=== PATIENT | female | born 1965 | race Two or more races ===

== ENCOUNTER → 2020-08-07 11:09 | Outpatient (BNVA) | payer MEDICAID, SELFPAY | PROVIDERS: PCP Family Medicine; Visit Provider Internal Medicine Pulmonary Disease | DX: D86.9 Sarcoidosis, unspecified (principal); J45.909 Unspecified asthma, uncomplicated | CPT/HCPCS: 99212 ==

== ENCOUNTER 2021-03-07 09:25 | Outpatient (REF) | payer OTHER, SELFPAY ==
[2021-03-07 10:50] LABS: MANUAL DIFF FLAG NO
[2021-03-07 10:54] LABS: Basophils Percent Auto 0.5 % (0-2); Eosinophils Absolute Auto 0.1 X10*3/uL (0.0-0.4); Eosinophils Percent Auto 1.2 % (0-4); Hematocrit 39.3 % (37-47); Imm Gran Abs Auto 0.01 X10*3/uL (0.00-0.03); Imm Gran Pct Auto 0.2 % (0.0-0.4); Lymphocytes Absolute Auto 2.1 X10*3/uL (1.2-4.9); Lymphocytes Percent Auto 36.2 % (20-40); Mean Corpuscular HGB Conc 33.1 g/dl (31.0-35.0); Mean Corpuscular Hemoglobin 27.8 pg (27.0-33.0); Mean Corpuscular Volume 84.2 fL (80-98); Mean Platelet Volume 10.4 fL (9.4-12.3); Monocytes Absolute Auto 0.3 X10*3/uL (0.1-1.2); Monocytes Percent Auto 5.6 % (2-11); Neutrophils Absolute Auto 3.3 X10*3/uL (2.0-8.3); Neutrophils Percent Auto 56.3 % (45-73); Platelet Count 262 X10*3/uL (160-400); Red Blood Count 4.67 X10*6/uL (4.20-5.50); Red Cell Distribution Width 12.2 % (11.0-16.0); White Blood Count 5.9 X10*3/uL (4.8-10.8)
[2021-03-07 11:36] LABS: Alanine Aminotransferase 7 U/L (0-31); Albumin Level 4.4 g/dL (3.5-5.0); Alkaline Phosphatase 104 U/L (39-117); Anion Gap 12 (12-20); Aspartate Amino Transferase 18 U/L (5-31); Bilirubin Total 0.6 mg/dL (0.0-1.0); Blood Urea Nitrogen 8 mg/dL (9-16); Carbon Dioxide 29 mmol/L (22-29); Chloride 103 mmol/L (96-108); Estimated Glomerular Filt Rate > 60; Glucose Random 94 mg/dL (60-115); Phosphorus 3.4 mg/dL (2.7-4.5); Potassium 4.7 mmol/L (3.3-5.1); Sodium 139 mmol/L (135-145); Total Protein 7.9 g/dL (6.5-8.0)
[2021-03-12 22:46] LABS: Angiotensin Converting Enzyme 47 U/L (9-67)
== END 2021-03-07 09:26 | disposition home or self-care (01) ==
LOC: HO.LAB 09:25
PROVIDERS: PCP Family Medicine; Visit Provider Internal Medicine Pulmonary Disease
DX: D86.9 Sarcoidosis, unspecified (principal); J45.909 Unspecified asthma, uncomplicated
CPT/HCPCS: 36415; 80053; 82164; 84100; 85025; 99212

== ENCOUNTER 2021-03-19 10:08 | Outpatient (REF) | payer OTHER, SELFPAY ==
--- NOTE | ~2021-03-19 | CT_ITS ---
EXAMINATION: CT CHEST WITHOUT CONTRAST CLINICAL INFORMATION: Sarcoidosis. COMPARISON: None TECHNIQUE: Multidetector volumetric CT imaging of the chest was done. Axial MIP volume rendering provided. Sagittal and coronal reformatted images were obtained. This CT examination was performed using dose optimization techniques as appropriate, variously including the following: *Automated exposure control *Adjustment of mA and/or kV according to patient size (this includes techniques or standardized protocols for targeted exams where dose is matched to indication/reason for exam; i.e. 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 LUNGS: The lungs are well expanded and clear of acute pneumonic process. There are 1 mm punctate calcified nodules left lower lobe axial image 103/10 and right middle lobe axial image 107/10. There are a few noncalcified nodules, a 3 mm nodule right middle lobe axial image 107/10, 4 mm nodule right middle lobe axial image 110/10, and a subpleural-based 2 mm nodule right middle lobe image 108/10. The subpleural nodule was faintly visualized on the previous study. These nodules show minimal increase by 1 mm compared to the 2019 exam. No additional nodules visualized. MEDIASTINUM: The central trachea and the bronchi are widely patent. The thyroid lobes are symmetrical and normal. Heart size and the great vessels are normal caliber. No pericardial effusion seen. No abnormal sized mediastinal or hilar lymph nodes. PLEURA: There is no pleural effusion. No pleural mass or thickening. AXILLA: No abnormal axillary lymph nodes. Bilateral augmented breasts are stable. UPPER ABDOMEN: Visualized liver, pancreas and bilateral adrenal glands are unremarkable. The gallbladder has been surgically removed. OSSEOUS STRUCTURES: There is mild spondylosis dorsal spine. No lytic or sclerotic process seen. CT/CT chest wo con IMPRESSION: Minimal 1 mm increase in size of 2 pulmonary nodules in the right middle lobe. There is a subpleural nodule seen better on the present exam. Recommend long-term followup of these nodules in 18-24 months. No abnormal mediastinal or axillary lymph nodes seen.
== END 2021-03-19 10:09 | disposition home or self-care (01) ==
LOC: HO.CT 10:08
PROVIDERS: PCP Family Medicine; Visit Provider Internal Medicine Pulmonary Disease
DX: D86.9 Sarcoidosis, unspecified (principal)
CPT/HCPCS: 71250

== ENCOUNTER → 2021-04-18 11:02 | Outpatient (BNVA) | payer OTHER, SELFPAY | PROVIDERS: PCP Family Medicine; Visit Provider Internal Medicine Pulmonary Disease | DX: D86.9 Sarcoidosis, unspecified (principal); J45.909 Unspecified asthma, uncomplicated | CPT/HCPCS: 99212 ==

== ENCOUNTER → 2021-09-08 14:30 | Outpatient (BNVA) | payer OTHER, SELFPAY | PROVIDERS: PCP Family Medicine; Visit Provider Nurse Practitioner Family | DX: M79.7 Fibromyalgia (principal); M79.641 Pain in right hand; M79.642 Pain in left hand; M25.561 Pain in right knee; M25.562 Pain in left knee | CPT/HCPCS: 99212 ==

== ENCOUNTER 2021-09-09 10:46 | Outpatient (REF) | payer OTHER, SELFPAY ==
--- NOTE | ~2021-09-09 | XR_ITS ---
EXAMINATION: XR KNEE, RIGHT CLINICAL INFORMATION: Pain. COMPARISON: Radiographs dated 08/31/2018. TECHNIQUE: AP, lateral, tunnel, and sunrise views of the right knee. FINDINGS: Bony alignment and mineralization are normal. The lateral and medial joint space compartments are well-maintained. There is mild narrowing of the lateral aspect of the patellofemoral compartment, with a small spur noted of the lateral articular surface of the patella. There is no fracture, dislocation or significant joint effusion. No foreign body seen. XR/XR knee LT 3V IMPRESSION: 1. No right knee fracture, dislocation or significant joint effusion is seen. 2. There is mild osteoarthritic change of the right patellofemoral compartment. EXAMINATION: XR KNEE, LEFT CLINICAL INFORMATION: Pain. COMPARISON: None TECHNIQUE: AP, lateral, tunnel, and sunrise views of the left knee. FINDINGS: Bony alignment and mineralization are normal. The lateral and medial joint space compartments are well-maintained. There is mild narrowing of the lateral aspect of the patellofemoral compartment. There is mild peripheral osteophyte formation of the patellofemoral compartment, most pronounced medially. There is no fracture, dislocation or significant joint effusion. No foreign body is seen. IMPRESSION: 1. No left knee fracture, dislocation or significant joint effusion is seen. 2. There is mild osteoarthritic change of the left patellofemoral compartment.
--- NOTE | ~2021-09-09 | XR_ITS ---
EXAMINATION: XR HAND, RIGHT CLINICAL INFORMATION: Pain. COMPARISON: Radiographs dated 02/21/2019. TECHNIQUE: PA, lateral, and oblique views of the right hand. FINDINGS: Bony mineralization is normal. There is an ulnar minus variance. There is mild peripheral osteophyte formation of the interphalangeal joint of the thumb. No fracture or dislocation is seen. The proximal and distal carpal rows are intact. There is minimal osteoarthritic change of the first carpometacarpal joint. There is no focal bony erosion. No soft tissue gas, swelling or foreign body is seen. XR/XR hand LT min 3V IMPRESSION: 1. There is mild osteoarthritic change of the interphalangeal joint of the right thumb. 2. No acute fracture or dislocation is seen. 3. There is an ulnar minus variance. EXAMINATION: XR HAND, LEFT CLINICAL INFORMATION: Pain. COMPARISON: Radiographs dated 02/21/2019. TECHNIQUE: PA, lateral, and oblique views of the left hand. FINDINGS: Bony mineralization is normal. There is an ulnar minus variance. There is mild peripheral osteophyte formation of the interphalangeal joint of the thumb. No fracture or dislocation is seen. The proximal and distal carpal rows appear intact. There is minimal osteoarthritic change of the first carpometacarpal joint. No focal bone erosion is seen. No soft tissue gas, swelling or foreign body is seen. IMPRESSION: 1. There is mild osteoarthritic change of the interphalangeal joint of the left thumb. 2. No acute fracture or dislocation is seen. 3. There is an ulnar minus variance.
--- NOTE | ~2021-09-09 | XR_ITS ---
EXAMINATION: XR HAND, RIGHT CLINICAL INFORMATION: Pain. COMPARISON: Radiographs dated 02/21/2019. TECHNIQUE: PA, lateral, and oblique views of the right hand. FINDINGS: Bony mineralization is normal. There is an ulnar minus variance. There is mild peripheral osteophyte formation of the interphalangeal joint of the thumb. No fracture or dislocation is seen. The proximal and distal carpal rows are intact. There is minimal osteoarthritic change of the first carpometacarpal joint. There is no focal bony erosion. No soft tissue gas, swelling or foreign body is seen. XR/XR hand RT min 3V IMPRESSION: 1. There is mild osteoarthritic change of the interphalangeal joint of the right thumb. 2. No acute fracture or dislocation is seen. 3. There is an ulnar minus variance. EXAMINATION: XR HAND, LEFT CLINICAL INFORMATION: Pain. COMPARISON: Radiographs dated 02/21/2019. TECHNIQUE: PA, lateral, and oblique views of the left hand. FINDINGS: Bony mineralization is normal. There is an ulnar minus variance. There is mild peripheral osteophyte formation of the interphalangeal joint of the thumb. No fracture or dislocation is seen. The proximal and distal carpal rows appear intact. There is minimal osteoarthritic change of the first carpometacarpal joint. No focal bone erosion is seen. No soft tissue gas, swelling or foreign body is seen. IMPRESSION: 1. There is mild osteoarthritic change of the interphalangeal joint of the left thumb. 2. No acute fracture or dislocation is seen. 3. There is an ulnar minus variance.
--- NOTE | ~2021-09-09 | XR_ITS ---
EXAMINATION: XR KNEE, RIGHT CLINICAL INFORMATION: Pain. COMPARISON: Radiographs dated 08/31/2018. TECHNIQUE: AP, lateral, tunnel, and sunrise views of the right knee. FINDINGS: Bony alignment and mineralization are normal. The lateral and medial joint space compartments are well-maintained. There is mild narrowing of the lateral aspect of the patellofemoral compartment, with a small spur noted of the lateral articular surface of the patella. There is no fracture, dislocation or significant joint effusion. No foreign body seen. XR/XR knee RT 3V IMPRESSION: 1. No right knee fracture, dislocation or significant joint effusion is seen. 2. There is mild osteoarthritic change of the right patellofemoral compartment. EXAMINATION: XR KNEE, LEFT CLINICAL INFORMATION: Pain. COMPARISON: None TECHNIQUE: AP, lateral, tunnel, and sunrise views of the left knee. FINDINGS: Bony alignment and mineralization are normal. The lateral and medial joint space compartments are well-maintained. There is mild narrowing of the lateral aspect of the patellofemoral compartment. There is mild peripheral osteophyte formation of the patellofemoral compartment, most pronounced medially. There is no fracture, dislocation or significant joint effusion. No foreign body is seen. IMPRESSION: 1. No left knee fracture, dislocation or significant joint effusion is seen. 2. There is mild osteoarthritic change of the left patellofemoral compartment.
[2021-09-09 12:55] LABS: Alanine Aminotransferase 17 U/L (0-31); Albumin Level 3.9 g/dL (3.5-5.0); Alkaline Phosphatase 92 U/L (39-117); Anion Gap 12 (12-20); Aspartate Amino Transferase 23 U/L (5-31); Bilirubin Total 0.6 mg/dL (0.0-1.0); Blood Urea Nitrogen 8 mg/dL (9-16); Calcium 9.5 mg/dL (8.4-10.2); Carbon Dioxide 28 mmol/L (22-29); Chloride 105 mmol/L (96-108); Estimated Glomerular Filt Rate > 60; Glucose Random 96 mg/dL (60-115); Potassium 4.3 mmol/L (3.3-5.1); Sodium 141 mmol/L (135-145); Total Protein 7.3 g/dL (6.5-8.0)
== END 2021-09-09 10:47 | disposition home or self-care (01) ==
LOC: HO.XRAY 10:46
PROVIDERS: PCP Family Medicine; Visit Provider Nurse Practitioner Family
DX: M79.7 Fibromyalgia (principal); M25.562 Pain in left knee; M25.561 Pain in right knee; M79.642 Pain in left hand; M79.641 Pain in right hand
CPT/HCPCS: 36415; 73130; 73562; 80053

== ENCOUNTER → 2022-04-08 09:54 | Outpatient (BNVA) | payer OTHER, SELFPAY | PROVIDERS: PCP Family Medicine; Visit Provider Nurse Practitioner Family | DX: M79.7 Fibromyalgia (principal); M79.641 Pain in right hand; M79.642 Pain in left hand; M25.561 Pain in right knee; M25.562 Pain in left knee | CPT/HCPCS: 99212 ==

== ENCOUNTER 2022-04-10 14:52 | Outpatient (REF) | payer OTHER, SELFPAY ==
[2022-04-10 15:05] LABS: MANUAL DIFF FLAG NO
[2022-04-10 15:14] LABS: Basophils Percent Auto 0.4 % (0-2); Eosinophils Absolute Auto 0.1 X10*3/uL (0.0-0.4); Eosinophils Percent Auto 0.6 % (0-4); Hematocrit 38.1 % (37.0-47.0); Hemoglobin 12.9 g/dl (12.0-16.0); Imm Gran Abs Auto 0.02 X10*3/uL (0.00-0.03); Imm Gran Pct Auto 0.2 % (0.0-0.4); Lymphocytes Absolute Auto 2.3 X10*3/uL (1.2-4.9); Lymphocytes Percent Auto 27.6 % (20-40); Mean Corpuscular HGB Conc 33.9 g/dl (31.0-35.0); Mean Corpuscular Hemoglobin 28.9 pg (27.0-33.0); Mean Corpuscular Volume 85.4 fL (80.0-98.0); Mean Platelet Volume 9.8 fL (9.4-12.3); Monocytes Absolute Auto 0.5 X10*3/uL (0.1-1.2); Monocytes Percent Auto 5.9 % (2-11); Neutrophils Absolute Auto 5.3 x10*3/uL (2.0-8.3); Neutrophils Percent Auto 65.3 % (45-73); Platelet Count 258 X10*3/uL (160-400); Red Blood Count 4.46 X10*6/uL (4.20-5.50); Red Cell Distribution Width 12.7 % (11.0-16.0); White Blood Count 8.1 X10*3/uL (4.8-10.8)
[2022-04-10 15:54] LABS: Erythrocyte Sedimentation Rate 34 MM/HR (0-20)
[2022-04-10 15:56] LABS: Alanine Aminotransferase 11 U/L (0-31); Aspartate Amino Transferase 17 U/L (5-31); C Reactive Protein 0.37 mg/dL (< or = 0.50); Estimated Glomerular Filt Rate > 60
== END 2022-04-10 14:53 | disposition home or self-care (01) ==
LOC: HO.LAB 14:52
PROVIDERS: PCP Family Medicine; Visit Provider Nurse Practitioner Family
DX: M25.50 Pain in unspecified joint (principal)
CPT/HCPCS: 36415; 82565; 84450; 84460; 85025; 85652; 86140

== ENCOUNTER → 2022-04-16 09:00 | Outpatient (BNVA) | payer OTHER, SELFPAY | PROVIDERS: PCP Family Medicine; Visit Provider Internal Medicine Rheumatology | DX: M65.9 Synovitis and tenosynovitis, unspecified (principal) | CPT/HCPCS: 20550 ==

== ENCOUNTER 2022-05-29 14:02 | Outpatient (REF) | payer OTHER, SELFPAY ==
[2022-05-29 14:52] LABS: C Reactive Protein 0.34 mg/dL (< or = 0.50)
[2022-05-29 15:15] LABS: Erythrocyte Sedimentation Rate 32 MM/HR (0-20)
== END 2022-05-29 14:03 | disposition home or self-care (01) ==
LOC: HO.LAB 14:02
PROVIDERS: PCP Family Medicine; Visit Provider Nurse Practitioner Family
DX: M25.50 Pain in unspecified joint (principal); M79.7 Fibromyalgia; M79.641 Pain in right hand; M79.642 Pain in left hand; M25.561 Pain in right knee; M25.562 Pain in left knee
CPT/HCPCS: 36415; 85652; 86140; 99212

== ENCOUNTER → 2022-08-03 09:13 | Outpatient (BNVA) | payer OTHER, SELFPAY | PROVIDERS: PCP Family Medicine; Visit Provider Internal Medicine Rheumatology | DX: M65.9 Synovitis and tenosynovitis, unspecified (principal); M19.041 Primary osteoarthritis, right hand; M19.042 Primary osteoarthritis, left hand; M79.7 Fibromyalgia | CPT/HCPCS: 20550; 99212 ==

== ENCOUNTER → 2022-10-08 09:48 | Outpatient (BNVA) | payer OTHER, SELFPAY | PROVIDERS: PCP Family Medicine; Visit Provider Nurse Practitioner Family | DX: M79.7 Fibromyalgia (principal); M17.0 Bilateral primary osteoarthritis of knee; M19.041 Primary osteoarthritis, right hand; M19.042 Primary osteoarthritis, left hand; M65.9 Synovitis and tenosynovitis, unspecified; F32.A Depression, unspecified | CPT/HCPCS: 99212 ==

== ENCOUNTER 2022-10-08 11:05 | Outpatient (REF) | payer OTHER, SELFPAY ==
[2022-10-08 15:08] LABS: Alanine Aminotransferase 17 U/L (0-31); Albumin Level 4.1 g/dL (3.5-5.0); Alkaline Phosphatase 94 U/L (39-117); Anion Gap 13 (12-20); Aspartate Amino Transferase 20 U/L (5-31); Bilirubin Total 0.7 mg/dL (0.0-1.0); Blood Urea Nitrogen 10 mg/dL (9-16); Calcium 9.3 mg/dL (8.4-10.2); Carbon Dioxide 29 mmol/L (22-29); Chloride 104 mmol/L (96-108); Estimated Glomerular Filt Rate > 60; Glucose Random 89 mg/dL (60-115); Potassium 4.5 mmol/L (3.3-5.1); Sodium 141 mmol/L (135-145); Total Protein 7.4 g/dL (6.5-8.0)
== END 2022-10-08 11:06 | disposition home or self-care (01) ==
LOC: HO.10HDL 11:05
PROVIDERS: Visit Provider Nurse Practitioner Family
DX: M19.041 Primary osteoarthritis, right hand (principal); M19.042 Primary osteoarthritis, left hand; M17.0 Bilateral primary osteoarthritis of knee; M79.7 Fibromyalgia; M65.9 Synovitis and tenosynovitis, unspecified; Z79.899 Other long term (current) drug therapy
CPT/HCPCS: 36415; 80053

== ENCOUNTER 2022-11-04 11:50 | Outpatient (REF) | payer OTHER, SELFPAY ==
--- NOTE | ~2022-11-04 | XR_ITS ---
EXAMINATION: XR KNEE, RIGHT CLINICAL INFORMATION: Bilateral primary osteoarthritis of knee. COMPARISON: None available. TECHNIQUE: Four views of the right knee. FINDINGS: Bones and soft tissues are normal. No fracture or joint effusion. Alignment is anatomic. Joint spaces are well maintained. No abnormal soft tissue calcification. There is mild right lateral patellar spurring. The soft tissues are normal. XR/XR knee RT 3V IMPRESSION: Mild right lateral patellar spurring. No visible acute fracture, dislocation or subluxation seen.
== END 2022-11-04 11:51 | disposition home or self-care (01) ==
LOC: HO.XRAY 11:50
PROVIDERS: PCP Family Medicine; Visit Provider Internal Medicine Rheumatology
DX: M17.0 Bilateral primary osteoarthritis of knee (principal)
CPT/HCPCS: 73562

== ENCOUNTER → 2022-11-10 13:54 | Outpatient (BNVA) | payer OTHER, SELFPAY | PROVIDERS: PCP Family Medicine; Visit Provider Orthopaedic Surgery | DX: M79.641 Pain in right hand (principal); M79.642 Pain in left hand | CPT/HCPCS: 99202 ==

== ENCOUNTER → 2022-11-25 10:49 | Outpatient (BNVA) | payer OTHER, SELFPAY | PROVIDERS: PCP Family Medicine; Visit Provider Nurse Practitioner Family | DX: M17.11 Unilateral primary osteoarthritis, right knee (principal) | CPT/HCPCS: 20610 ==

== ENCOUNTER → 2023-02-11 07:57 | Outpatient (BNVA) | payer OTHER, SELFPAY | PROVIDERS: PCP Family Medicine; Visit Provider Internal Medicine Rheumatology | DX: M17.0 Bilateral primary osteoarthritis of knee (principal); M22.2X1 Patellofemoral disorders, right knee; M22.2X2 Patellofemoral disorders, left knee; M19.042 Primary osteoarthritis, left hand; M19.041 Primary osteoarthritis, right hand; M79.7 Fibromyalgia | CPT/HCPCS: 20610; 99212 ==

== ENCOUNTER 2023-04-01 13:51 | Outpatient (AMB) | payer OTHER, SELFPAY ==
--- NOTE | 2023-04-01 13:55 | MHC.OFFVIS ---
Intake Vital Signs 04/01/23 13:56 Height 5 ft 3 in Weight 163 lb 2.273 oz BMI 28.9 BP 136/80 Blood Pressure Location Lt brachial Position Sitting Pulse 65 Pulse Source Pulse Oximeter Pulse Oximetry (%) 99 Oxygen Delivery Method Room Air Intake Visit Reasons: sarcoidosis Intake Note: Pt reports shortness of breath, light headed, dizzy, and fatigue and went to the [facility] ED. Recently had an EKG and was diagnosed with left ventricular hypertrophy. Allergies fluconazole [From Diflucan] Allergy (Severe, Verified 04/01/23 14:01) Hives acetaminophen [From VICODIN] Allergy (Unknown, Verified 04/01/23 14:01) HIVES codeine Allergy (Unknown, Verified 04/01/23 14:01) Unknown erythromycin base [ERYTHROMYCIN BASE] Allergy (Unknown, Verified 04/01/23 14:01) HIVES hydrocodone [From VICODIN] Allergy (Unknown, Verified 04/01/23 14:01) HIVES loratadine [From CLARITIN] Allergy (Unknown, Verified 04/01/23 14:01) HTN meperidine [From DEMEROL] Allergy (Unknown, Verified 04/01/23 14:01) UNKNOWN morphine [MORPHINE] Allergy (Unknown, Verified 04/01/23 14:01) UNKNOWN nalbuphine [From NUBAIN] Allergy (Unknown, Verified 04/01/23 14:01) HIVES oxycodone [OXYCODONE] Allergy (Unknown, Verified 04/01/23 14:01) HIVES penicillin V Allergy (Unknown, Verified 04/01/23 14:01) unk Penicillins [PCN] Allergy (Unknown, Verified 04/01/23 14:01) HIVES tramadol [TRAMADOL] Allergy (Unknown, Verified 04/01/23 14:01) NAUSEA & VOMITING vancomycin [VANCOMYCIN] Allergy (Unknown, Verified 04/01/23 14:01) BLISTERS HPI sarcoidosis HPI Details 57-year-old lady with underlying history of sarcoidosis diagnosed based on CT [id number]. Patient has been previously seen at [facility] pulmonary service.? Patient was lost to follow-up for the last 2 years and now comes back to restrictive care after being evaluated at emergency room for dyspnea and being told she has left ventricular hypertrophy. Patient complains of orthopnea, lower extremity edema, and dyspnea on exertion. She denies cough, wheezing or sputum production. 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 Current occupational exposures/hazards: No Sexual orientation: Straight/Heterosexual Gender identity: Female Review of Systems Const Denies daytime sleepiness, Denies excessive sweating, Denies fatigue, Denies fever(s), Denies lethargy, Denies malaise, Denies night sweats, Denies snoring and Denies weight loss Eyes Denies blurry vision and Denies itchy eyes ENT Denies nasal congestion, Denies post nasal drip, Denies sinus pain, Denies sinus pressure and Denies other ( Thrush) Card Denies chest pain, Denies pedal edema, Denies dyspnea, Denies orthopnea and Denies paroxysmal nocturnal dyspnea Resp Denies cough, Denies hemoptysis, Denies excessive phlegm production, Denies dyspnea, Denies snoring and Denies wheezing GI Denies abdominal pain and Denies heartburn Musc Denies myalgias, Denies arthralgias and Denies joint swelling Skin/Breast Denies rash Neuro Denies memory loss and Denies seizure-like activity Psych Denies abnormal sleep pattern, Denies anxiety and Denies memory loss Endo Denies excessive sweating, Denies fatigue and Denies heat intolerance Maximiliano/Lymph Denies easy bruising Aller/Immun Denies itchy eyes, Denies seasonal rhinorrhea and Denies wheezing Physical Exam Vital Signs: Last Vital Signs Pulse 65 04/01/23 13:56 BP 136/80 04/01/23 13:56 Pulse Ox 99 04/01/23 13:56 Oxygen Delivery Method Room Air 04/01/23 13:56 BMI result Body Mass Index 28.9 Const General: no acute distress and alert Nutritional Appearance: not obese Orientation/consciousness: Other orientation findings ( oriented) HEENT Head: Yes atraumatic Eyes General: appearance normal, both eyes and all related structures Sclerae: sclerae normal EOM: EOMs intact bilaterally Neck Neck: Yes supple Lymphatic: no lymphadenopathy noted Resp Effort & Inspection: normal respiratory effort and no use of accessory muscles Auscultation: clear to auscultation bilaterally Cardio Rate: regular rate Rhythm: regular rhythm Heart sounds: no gallops, no murmurs and no rubs Skin General skin exam: other ( warm) Extrem General: No clubbing, No cyanosis and No edema Assessment & Plan Assessment & Plan (1) Sarcoidosis: Code(s): D86.9 - Sarcoidosis, unspecified Plan: Will obtain CT chest for further evaluation. Underlying history of pulmonary nodules. (2) Reactive airway disease: Code(s): J45.909 - Unspecified asthma, uncomplicated Plan: Will obtain full PFT for further evaluation. (3) Dyspnea on exertion: Code(s): R06.09 - Other forms of dyspnea Plan: Now with significant orthopnea and dyspnea on exertion. Will obtain 2D echocardiogram for further evaluation. Orders: Orders CA echo transthoracic complete Today R06.09 - Other forms of dyspnea CT chest wo IV con Today D86.9 - Sarcoidosis, unspecified PFT pulmonary function test Today R06.09 - Other forms of dyspnea Coding Level of Care Code Est Pt Level 4 (23941) Diagnoses Sarcoidosis D86.9 Reactive airway disease J45.909 Dyspnea on exertion R06.09
[2023-04-01 13:56] VITALS: BP 136/80; PULSE 65; O2SAT 99; BMI 28.9
== END 2023-04-01 14:24 | disposition home or self-care (01) ==
PROVIDERS: PCP Family Medicine; Visit Provider Internal Medicine Pulmonary Disease
DX: D86.9 Sarcoidosis, unspecified (principal); J45.909 Unspecified asthma, uncomplicated; R06.09 Other forms of dyspnea
CPT/HCPCS: 99214

== ENCOUNTER → 2023-04-01 13:51 | Outpatient (BNVA) | payer OTHER, SELFPAY | PROVIDERS: PCP Family Medicine; Visit Provider Internal Medicine Pulmonary Disease | DX: D86.9 Sarcoidosis, unspecified (principal); J45.909 Unspecified asthma, uncomplicated; R06.09 Other forms of dyspnea | CPT/HCPCS: 99212 ==

== ENCOUNTER 2023-04-13 11:03 | Outpatient (REF) | payer OTHER, SELFPAY ==
--- NOTE | ~2023-04-13 | CT_ITS ---
EXAMINATION: CT CHEST WITHOUT CONTRAST CLINICAL INFORMATION: Sarcoidosis COMPARISON: 03/19/2021 TECHNIQUE: Multidetector volumetric CT imaging of the chest was done. Axial MIP volume rendering provided. Sagittal and coronal reformatted images were obtained. This CT examination was performed using dose optimization techniques as appropriate, variously including the following: *Automated exposure control *Adjustment of mA and/or kV according to patient size (this includes techniques or standardized protocols for targeted exams where dose is matched to indication/reason for exam; i.e. 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 Apical pleural thickening. 4 and 2 mm right middle lobe nodules, 12:33. 2 mm subpleural, 12:32 MEDIASTINUM: Unremarkable thyroid. Nonspecific mediastinal lymph nodes. No pathologic lymphadenopathy. Nonenlarged heart. Trace pericardial thickening/fluid. Nonaneurysmal aorta with trace atherosclerotic calcifications. Nonenlarged pulmonary arteries. CORONARY ARTERY CALCIFICATION: None visualized on this study. PLEURA: There is no pleural effusion. No pleural mass or thickening. AXILLA: No lymphadenopathy. UPPER ABDOMEN: Cholecystectomy clips. No upper abdominal pathology recognized. OSSEOUS AND SOFT TISSUE STRUCTURES: Bilateral implants. CT/CT chest wo IV con IMPRESSION: No change right middle lobe pulmonary nodules, none larger than 4 mm. No pathologic lymphadenopathy. Fleischner guidelines were followed.
== END 2023-04-13 11:04 | disposition home or self-care (01) ==
LOC: HO.CT 11:03
PROVIDERS: PCP Family Medicine; Visit Provider Internal Medicine Pulmonary Disease
DX: D86.9 Sarcoidosis, unspecified (principal)
CPT/HCPCS: 71250

== ENCOUNTER → 2023-06-07 10:59 | Outpatient (REF) | payer OTHER, SELFPAY ==
--- NOTE | 2023-06-07 11:01 | CA_ITS ---
Transthoracic Echocardiogram Patient (Last, First, Middle): Nicolette Soto, Gender: Female Date of : 1965 Age: 58 Procedure Date: 06/07/2023 Procedure Type: Transthoracic Echocardiogram Location: OP Height: 160.02 cm Weight: 71.22 kg BSA: 1.74 m2 Heart Rate: bpm BP: 135 / 77 mmHg Service Or Work Dispatcher Chief: Referring MD: Naeem Butts MD Lead Designer: Javier Casey MD Symptoms: R06.09 - Other forms of dyspnea Study Quality: Adequate ECG Rhythm: Sinus Conclusions: - Essentially normal study Findings Left Ventricle Normal left ventricular size, thickness, and systolic function. The visually estimated ejection fraction is between 60-65%. Spectral Doppler is indicative of a normal filling pattern. Right Ventricle Normal right ventricular cavity size and systolic function. Atria Both atria are normal in size. There is no evidence of interatrial shunt. Aortic Valve Normal aortic valve structure and function. There is no aortic valve stenosis. There is no aortic valve regurgitation. Mitral Valve Normal mitral valve structure and function. There is trace mitral valve regurgitation. There is no mitral valve stenosis. Pulmonic Valve The pulmonic valve is likely normal. Tricuspid Valve Normal tricuspid valve structure. There is trace tricuspid valve regurgitation. The right ventricular systolic pressure is normal. The right ventricular systolic pressure is 19 mmHg. Normal right atrial pressure. There is no evidence of pulmonary hypertension. Great Vessels All visible segments of the aorta are normal in size. The pulmonary artery was not well visualized. Venous The inferior vena cava is normal in size and collapses greater than 50% with inspiration. Pericardium/Pleural There is no evidence of pericardial effusion. Measurements 2D Linear Measurements IVSd: 1.00 0.6-0.9/0.6-1.0 cm LVIDd: 3.70 3.9-5.3/4.2-5.9 cm LVIDd Index: 2.13 2.4-3.2/2.2-3.1 cm/m2 LVIDs: 2.40 2.0-3.6 cm LVPWd: 1.00 0.7-1.1 cm Ao Root: 2.60 2.1-3.5 cm LA Diam: 3.00 2.7-3.8/3.0-4.0 cm LAIDs Index: 1.72 1.5-2.3 cm/m2 LV Mass: 139.92 67-162/88-224 g LV Mass Index: 80.41 43-95/49-115 g/m2 LVOT Diam: 2.00 3.0+(-)1.3 cm Mitral Valve MV Pk E: 0.80 MV PK A: 0.78 MV Decel Time: 186.00 E/A: 1.00 E'Lateral: 9.36 E'Medial: 7.29 E/E' Med: 11.00 E/E' Lat: 8.60 PHT: 55.00 MVA PHT: 4.00 Decel [place]: 4.30 Aortic Valve AoV Pk Jakob: 1.28 AoV Mn Jakob: 0.98 AoV VTI: 0.29 AoV Pk Grad: 7.00 Aov Mn Grad: 4.00 LILA Cont.VTI: 3.03 LVOT LVOT Pk Jakob: 1.24 LVOT Mn Jakob: 0.82 LVOT VTI: 0.28 LVOT Pk Grad: 6.00 LVOT Mn Grad: 3.00 LVOT Diam: 2.00 LVOT Area: 3.14 Diastolic Function MV Pk E: 0.80 MV Pk A: 0.78 E/A: 1.00 E'Medial: 7.29 E/E' Med: 11.00 E' Laterial: 9.36 E/E' Lat: 8.60 Right Ventricle TAPSE (mm): 24.00 TVS' Jakob: 13.00 Tricuspid Valve TR Pk Jakob: 2.01 TR Pk Grad: 16.00 RA Press: 3.00 RVSP: 19.00 Great Vessels Aorta Ao Root-2D: 2.60 2.0-3.7 cm Ao Asc: 2.80 2.1-3.4 cm Pulmonary Valve PV Pk Jakob: 1.00 Peak PV Grad: 4.00 Updated in Other Vendor System with Status of Final Javier Casey MD electronically signed on 06/08/2023 11:40:42 AM with status of Final
== END ==
LOC: HO.CARD 10:59
PROVIDERS: PCP Family Medicine; Visit Provider Internal Medicine Pulmonary Disease
DX: R06.09 Other forms of dyspnea (principal)
CPT/HCPCS: 93306

== ENCOUNTER → 2023-06-07 11:01 | Outpatient (BNV) | payer OTHER, SELFPAY | PROVIDERS: PCP Family Medicine; Visit Provider Internal Medicine Cardiovascular Disease | DX: R06.09 Other forms of dyspnea (principal) | CPT/HCPCS: 93306 ==

== ENCOUNTER 2023-06-08 13:44 | Outpatient (REF) | payer OTHER, SELFPAY ==
--- NOTE | 2023-06-08 14:31 | PFT_ITS ---
INDICATION: Dyspnea. SPIROMETRY: The FEV1 to FVC of 84% with an FEV1 of 2.44 L, which is 103% predicted. FVC of 2.89 L, which is 101% predicted. No significant response to bronchodilators noted. Maximum voluntary ventilation 55% predicted. LUNG VOLUMES: Total lung capacity 80% predicted. DIFFUSION CAPACITY: DLCO of 72%. COMPARISONS: None. INTERPRETATION: No obstructive, nor restrictive ventilatory defects appreciated. No significant response to bronchodilator is noted. The patient does have a moderate decrease in maximum voluntary ventilation, which could be secondary to deconditioning, although cannot rule out neuromuscular conditions. The patient has a low-normal total lung capacity. Therefore, cannot rule out occult interstitial lung conditions or neuromuscular diseases. In addition to that, she has a mild diffusion impairment. Clinical correlation warranted. Jonatan Chu MD MR/MODL / [id number]
== END 2023-06-08 13:45 | disposition home or self-care (01) ==
LOC: HO.RESP 13:44
PROVIDERS: PCP Family Medicine; Visit Provider Internal Medicine Pulmonary Disease
DX: R06.09 Other forms of dyspnea (principal)
CPT/HCPCS: 94010; 94727; 94729

== ENCOUNTER → 2023-06-08 14:31 | Outpatient (BNV) | payer OTHER, SELFPAY | PROVIDERS: PCP Family Medicine; Visit Provider Hospitalist | DX: R06.09 Other forms of dyspnea (principal) | CPT/HCPCS: 94060; 94727; 94729 ==

== ENCOUNTER 2023-06-09 10:18 | Outpatient (AMB) | payer OTHER, SELFPAY ==
[2023-06-09 10:20] VITALS: BP 117/72; PULSE 79; O2SAT 99; BMI 29.1
--- NOTE | 2023-06-09 10:20 | A.OFFVIS_ITS ---
Intake Vital Signs 06/09/23 10:20 Height 5 ft 3 in Weight 164 lb 3.91 oz BMI 29.1 BP 117/72 Blood Pressure Location Lt brachial Position Sitting Pulse 79 Pulse Source Doppler Pulse Oximetry (%) 99 Oxygen Delivery Method Room Air Intake Visit Reasons: sarcoidosis Allergies fluconazole [From Diflucan] Allergy (Severe, Verified 06/09/23 10:25) Hives acetaminophen [From VICODIN] Allergy (Unknown, Verified 06/09/23 10:25) HIVES codeine Allergy (Unknown, Verified 06/09/23 10:25) Unknown erythromycin base [ERYTHROMYCIN BASE] Allergy (Unknown, Verified 06/09/23 10:25) HIVES hydrocodone [From VICODIN] Allergy (Unknown, Verified 06/09/23 10:25) HIVES loratadine [From CLARITIN] Allergy (Unknown, Verified 06/09/23 10:25) HTN meperidine [From DEMEROL] Allergy (Unknown, Verified 06/09/23 10:25) UNKNOWN morphine [MORPHINE] Allergy (Unknown, Verified 06/09/23 10:25) UNKNOWN nalbuphine [From NUBAIN] Allergy (Unknown, Verified 06/09/23 10:25) HIVES oxycodone [OXYCODONE] Allergy (Unknown, Verified 06/09/23 10:25) HIVES penicillin V Allergy (Unknown, Verified 06/09/23 10:25) unk Penicillins [PCN] Allergy (Unknown, Verified 06/09/23 10:25) HIVES tramadol [TRAMADOL] Allergy (Unknown, Verified 06/09/23 10:25) NAUSEA & VOMITING vancomycin [VANCOMYCIN] Allergy (Unknown, Verified 06/09/23 10:25) BLISTERS HPI sarcoidosis HPI Details 58-year-old lady with underlying history of sarcoidosis diagnosed based on CT [id number]. Patient has been previously seen at [facility] pulmonary service.? Patient was lost to follow-up for the last 2 years and recently came back to reestablish care. She has completed her 2D echocardiogram, CT chest, and pulmonary function test which all were essentially normal. she denies recent acute exacerbations. 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 Current occupational exposures/hazards: No Sexual orientation: Straight/Heterosexual Gender identity: Female Review of Systems Const Denies daytime sleepiness, Denies excessive sweating, Denies fatigue, Denies fever(s), Denies lethargy, Denies malaise, Denies night sweats, Denies snoring and Denies weight loss Eyes Denies blurry vision and Denies itchy eyes ENT Denies nasal congestion, Denies post nasal drip, Denies sinus pain, Denies sinus pressure and Denies other ( Thrush) Card Denies chest pain, Denies pedal edema, Denies dyspnea, Denies orthopnea and Denies paroxysmal nocturnal dyspnea Resp Denies cough, Denies hemoptysis, Denies excessive phlegm production, Denies dyspnea, Denies snoring and Denies wheezing GI Denies abdominal pain and Denies heartburn Musc Denies myalgias, Denies arthralgias and Denies joint swelling Skin/Breast Denies rash Neuro Denies memory loss and Denies seizure-like activity Psych Denies abnormal sleep pattern, Denies anxiety and Denies memory loss Endo Denies excessive sweating, Denies fatigue and Denies heat intolerance Maximiliano/Lymph Denies easy bruising Aller/Immun Denies itchy eyes, Denies seasonal rhinorrhea and Denies wheezing Physical Exam Vital Signs: Last Vital Signs Pulse 79 06/09/23 10:20 BP 117/72 06/09/23 10:20 Pulse Ox 99 06/09/23 10:20 Oxygen Delivery Method Room Air 06/09/23 10:20 BMI result Body Mass Index 29.1 Const General: no acute distress and alert Nutritional Appearance: not obese Orientation/consciousness: Other orientation findings ( oriented) HEENT Head: Yes atraumatic Eyes General: appearance normal, both eyes and all related structures Sclerae: sclerae normal EOM: EOMs intact bilaterally Neck Neck: Yes supple Lymphatic: no lymphadenopathy noted Resp Effort & Inspection: normal respiratory effort and no use of accessory muscles Auscultation: clear to auscultation bilaterally Cardio Rate: regular rate Rhythm: regular rhythm Heart sounds: no gallops, no murmurs and no rubs Skin General skin exam: other ( warm) Extrem General: No clubbing, No cyanosis and No edema Assessment & Plan Assessment & Plan (1) Sarcoidosis: Code(s): D86.9 - Sarcoidosis, unspecified Plan: Results of pulmonary function testing CT chest reviewed And essentially normal. At this time no evidence of clinical exacerbation. Continue to monitor. (2) Reactive airway disease: Code(s): J45.909 - Unspecified asthma, uncomplicated Plan: Well controlled on duo nebs. Continue current regimen. Coding Level of Care Code Est Pt Level 4 (85628) Diagnoses Sarcoidosis D86.9 Reactive airway disease J45.909
== END 2023-06-09 10:36 | disposition home or self-care (01) ==
PROVIDERS: PCP Family Medicine; Visit Provider Internal Medicine Pulmonary Disease
DX: D86.9 Sarcoidosis, unspecified (principal); J45.909 Unspecified asthma, uncomplicated
CPT/HCPCS: 99214

== ENCOUNTER → 2023-06-09 10:18 | Outpatient (BNVA) | payer OTHER, SELFPAY | PROVIDERS: PCP Family Medicine; Visit Provider Internal Medicine Pulmonary Disease | DX: D86.9 Sarcoidosis, unspecified (principal); J45.909 Unspecified asthma, uncomplicated | CPT/HCPCS: 99212 ==

== ENCOUNTER 2023-09-22 12:33 | Outpatient (AMB) | payer OTHER, SELFPAY ==
--- NOTE | 2023-09-22 12:34 | A.OFFVIS_ITS ---
Intake Vital Signs 09/22/23 12:35 Height 5 ft 3 in Weight 165 lb 9.074 oz BMI 29.3 BP 138/82 Blood Pressure Location Rt brachial Position Sitting Respiration 15 Pulse 84 Pulse Source Pulse Oximeter Temp 97.2 F Temp Source Tympanic Pulse Oximetry (%) 97 Oxygen Delivery Method Room Air Intake Visit Reasons: R knee Cortisone injection Search Marketing Coordinator Required: No Allergies fluconazole [From Diflucan] Allergy (Severe, Verified 09/22/23 12:40) Hives acetaminophen [From VICODIN] Allergy (Unknown, Verified 09/22/23 12:40) HIVES codeine Allergy (Unknown, Verified 09/22/23 12:40) Unknown erythromycin base [ERYTHROMYCIN BASE] Allergy (Unknown, Verified 09/22/23 12:40) HIVES hydrocodone [From VICODIN] Allergy (Unknown, Verified 09/22/23 12:40) HIVES loratadine [From CLARITIN] Allergy (Unknown, Verified 09/22/23 12:40) HTN meperidine [From DEMEROL] Allergy (Unknown, Verified 09/22/23 12:40) UNKNOWN morphine [MORPHINE] Allergy (Unknown, Verified 09/22/23 12:40) UNKNOWN nalbuphine [From NUBAIN] Allergy (Unknown, Verified 09/22/23 12:40) HIVES oxycodone [OXYCODONE] Allergy (Unknown, Verified 09/22/23 12:40) HIVES penicillin V Allergy (Unknown, Verified 09/22/23 12:40) unk Penicillins [PCN] Allergy (Unknown, Verified 09/22/23 12:40) HIVES tramadol [TRAMADOL] Allergy (Unknown, Verified 09/22/23 12:40) NAUSEA & VOMITING vancomycin [VANCOMYCIN] Allergy (Unknown, Verified 09/22/23 12:40) BLISTERS Medication List - Last Reconciled 09/22/23 by Jessica Anthony RN amlodipine 5 mg PO DAILY diclofenac sodium 1% (Voltaren Arthritis Pain) 2 grams topical QID ibuprofen 800 mg PO TID ipratropium-albuterol 0.5 mg-3 mg(2.5 mg base)/3 mL 3 mL inhalation QID PRN HPI HPI Comments History of Present Illness Details Ms. Will 58 yoF returns today for osteoarthritis in hands and knees and lower back. She has had occasional injection in the right knee for patellofemoral OA. She is here today for right knee injection. She had the left knee injected at last visit and it had been doing well. Last visit: Recently her pain seems to be worse in the left knee over the past month. This is usually with rising from a chair or walking on stairs. There has been no recent injury or swelling. She also has more widespread pains consistent with fibromyalgia. She does have some diclofenac gel and acetaminophen that she uses for pain control in addition to 800 mg t.i.d. ibuprofen. She denies any side effects with the ibuprofen. She has also had some trigger finger injections although they do not seem to help her for very long. She did see hand surgery but no surgery was planned. [facility] Medical History (Updated 09/22/23 @ 14:44 by Daniella Fox [facility]) senior care current use of non-steroidal anti-inflammatories (NSAID) Osteoarthritis of right knee Osteoarthritis of knees, bilateral Surgical History H/O shoulder surgery History of back surgery Hx of tubal ligation Family History Mother Heart attack Diabetes HTN (hypertension) Sister Diabetes Heart attack HTN (hypertension) Social History Household Members: Spouse Household Members Other:: son Housing: House Alcohol intake: never Patient Tobacco Use Status: Never used Tobacco service: No Current occupational status: employed 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 Regular rhythm, S1-S2 heard, no murmurs, rubs or gallops. LUNG:? Clear to percussion and auscultation JOINT EXAM:?? Cervical Spine: Full range of motion without pain; no tenderness. Thoracic Spine: No scoliosis.? No tenderness on palpation. Lumbar Spine: Alignment normal.? Full range of motion without pain, mild tenderness to palpation over the lumbar muscles. Hands: LEFT: ? Tenderness and bony enlargement at the base of the thumb.? Mild tenderness along the 2nd and 3rd flexor tendons, no triggering noted.? The other small joints in the DIP, MCPs or PIP's are not tender today, no synovitis.? Able to make a full fist. ? RIGHT: Tenderness and bony enlargement at the base of the thumb.? Mild tenderness along the 2nd and 3rd flexor tendons, no triggering noted.? The other small joints in the DIP, MCPs or PIP's are not tender today, no synovitis.? Able to make a full fist. Wrists: LEFT:? Full range of motion.? No tenderness, swelling, increased warmth or erythema.? RIGHT:? Full range of motion.? No tenderness, swelling increased warmth or erythema.? Elbows: Normal pain-free range of motion without? swelling, increased warmth or erythema. Shoulders:??LEFT: Full range of motion. No weakness, swelling, increased warmth or erythema. ? RIGHT:? Full range of motion with pain at 90 degrees of flexion and abduction.? Tenderness anteriorly and in the subacromial space. No abductor weakness.? Hips:? Full range of motion without pain. Hip bursa:? No tenderness. Knees:? LEFT: Slight pain felt medially with extremes of flexion or extension. There is mild to moderate patellofemoral crepitus and medial compartment tenderness. No redness or effusion. No popliteal tenderness or swelling. ? RIGHT: Normal pain-free range of motion.? There is mild to moderate patellofemoral crepitus and some minimal medial tenderness and trace swelling but no increased warmth or erythema.? Ankles: Normal pain-free range of motion.? No swelling, increased warmth or erythema.? Widespread diffuse tenderness to palpation. Feet:? Normal pain-free range of motion No swelling, increased warmth or erythema.? Widespread diffuse tenderness to palpation. Tender points:? Mild tenderness to digital palpation at the occiput, trapezius, second rib, lateral epicondyle, knees, greater trochanter and gluteal area bilaterally. Office Procedures Joint Injection/Drain Joint Injection/Drain Details: Right Knee Injection Primary Site: right knee Prep: site was prepped using aseptic technique Injected: 80 mg of, with 1 mL of and 1% plain lidocaine Approach Used: anterolateral Procedure: The patient tolerated the procedure well Coding 57530 - Large joint Procedure code (CPT) selection complete Assessment & Plan Assessment & Plan (1) Osteoarthritis of hands, bilateral: Code(s): M19.041 - Primary osteoarthritis, right hand; M19.042 - Primary osteoarthritis, left hand Qualifiers: Osteoarthritis type: primary Qualified Code(s): M19.041 - Primary osteoarthritis, right hand; M19.042 - Primary osteoarthritis, left hand (2) Osteoarthritis of knees, bilateral: Code(s): M17.0 - Bilateral primary osteoarthritis of knee Qualifiers: Osteoarthritis type: primary Qualified Code(s): M17.0 - Bilateral primary osteoarthritis of knee (3) Osteoarthritis of right knee: Code(s): M17.11 - Unilateral primary osteoarthritis, right knee Qualifiers: Osteoarthritis type: primary Qualified Code(s): M17.11 - Unilateral primary osteoarthritis, right knee (4) senior care current use of non-steroidal anti-inflammatories (NSAID): Code(s): Z79.1 - senior care (current) use of non-steroidal anti-inflammatories (NSAID) (5) Sarcoidosis: Code(s): D86.9 - Sarcoidosis, unspecified Plan #OA multiple Joints: The patient has some signs of osteoarthritis in the hands particularly at the base of the thumbs. There still a few tendons that are tender suggesting some flexor tenosynovitis. Overall no significant findings c onsistent with an inflammatory arthritis. She has a number of tender points and her other widespread pain seem consistent with some element of fibromyalgia. The knee pain is likely due to some patellofemoral osteoarthritis as was noted on radiographs. She wants another injection, this time in the Right knee so I will do that today. We reviewed potential benefits and side effects of such injections. The patient tolerated the procedure with no immediate adverse effects. We might repeat the injections in fiber 6 months. She is also encouraged to do at home the exercises from physical therapy. For her hand pain I recommend using the diclofenac gel with gloves to help with absorption. # Sarcoidosis: She has a history of sarcoidosis dating back to 2009,her first encounter. It is resolved and she currently follows with [facility] who does annual Lung CT The patient goes to the gym at least 4 times per week. Next follow-up 6 months. I will order updated labs for next visit given her use of NSAIDs I spent 40 minutes, reviewing chart, evaluating patient, and documenting. Orders: Orders Complete Blood Count Auto Diff Today M17.0 - Bilateral primary osteoarthritis of knee, M19.041 - Primary osteoarthritis, right hand, M19.042 - Primary osteoarthritis, left hand, Z79.899 - Other prison (current) drug therapy AMB Joint Injection/Aspiration Today M17.11 - Unilateral primary osteoarthritis, right knee C Reactive Protein Today M17.0 - Bilateral primary osteoarthritis of knee, M19.041 - Primary osteoarthritis, right hand, M19.042 - Primary osteoarthritis, left hand Erythrocyte Sedimentation Rate Today M17.0 - Bilateral primary osteoarthritis of knee, M19.041 - Primary osteoarthritis, right hand, M19.042 - Primary osteoarthritis, left hand Comprehensive Met. 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
[2023-09-22 12:35] VITALS: BP 138/82; PULSE 84; RESP 15; TEMP 36.2; O2SAT 97; BMI 29.3
== END 2023-09-22 13:27 | disposition home or self-care (01) ==
PROVIDERS: PCP Family Medicine; Visit Provider Nurse Practitioner Family
DX: M17.0 Bilateral primary osteoarthritis of knee (principal); M19.041 Primary osteoarthritis, right hand; M19.042 Primary osteoarthritis, left hand; Z79.1 Long term (current) use of non-steroidal anti-inflammatories (NSAID); D86.9 Sarcoidosis, unspecified
CPT/HCPCS: 20610; 99214

== ENCOUNTER → 2023-09-22 12:33 | Outpatient (BNVA) | payer OTHER, SELFPAY | PROVIDERS: PCP Family Medicine; Visit Provider Nurse Practitioner Family | DX: M17.0 Bilateral primary osteoarthritis of knee (principal); M19.041 Primary osteoarthritis, right hand; M19.042 Primary osteoarthritis, left hand | CPT/HCPCS: 20610; 99212 ==

== ENCOUNTER 2023-09-24 10:55 | Outpatient (REF) | payer OTHER, SELFPAY ==
[2023-09-24 12:18] LABS: Basophils Percent Auto 0.2 % (0-2); Hematocrit 40.8 % (37.0-47.0); Hemoglobin 13.9 g/dl (12.0-16.0); Imm Gran Abs Auto 0.15 X10*3/uL (0.00-0.03); Imm Gran Pct Auto 0.8 % (0.0-0.4); Lymphocytes Absolute Auto 1.2 X10*3/uL (1.2-4.9); Lymphocytes Percent Auto 6.5 % (20-40); MANUAL DIFF FLAG SCAN; Mean Corpuscular HGB Conc 34.1 g/dl (31.0-35.0); Mean Corpuscular Hemoglobin 28.5 pg (27.0-33.0); Mean Corpuscular Volume 83.6 fL (80.0-98.0); Mean Platelet Volume 10.8 fL (9.4-12.3); Monocytes Absolute Auto 0.3 X10*3/uL (0.1-1.2); Monocytes Percent Auto 1.7 % (2-11); Neutrophils Absolute Auto 16.7 x10*3/uL (2.0-8.3); Neutrophils Percent Auto 90.8 % (45-73); Platelet Count 335 X10*3/uL (160-400); Red Blood Count 4.88 X10*6/uL (4.20-5.50); Red Cell Distribution Width 12.8 % (11.0-16.0); SCAN SMEAR FLAG 1; White Blood Count 18.4 X10*3/uL (4.8-10.8)
[2023-09-24 12:45] LABS: Alanine Aminotransferase 14 U/L (0-31); Albumin Level 4.2 g/dL (3.5-5.0); Alkaline Phosphatase 92 U/L (39-117); Anion Gap 14 (12-20); Aspartate Amino Transferase 14 U/L (5-31); Bilirubin Total 0.3 mg/dL (0.0-1.0); Blood Urea Nitrogen 23 mg/dL (9-16); C Reactive Protein 0.13 mg/dL (< or = 0.50); Carbon Dioxide 26 mmol/L (22-29); Chloride 104 mmol/L (96-108); Estimated Glomerular Filt Rate 52; Glucose Random 106 mg/dL (60-115); Potassium 4.2 mmol/L (3.3-5.1); Sodium 140 mmol/L (135-145); Total Protein 8.2 g/dL (6.5-8.0)
[2023-09-24 13:02] LABS: Erythrocyte Sedimentation Rate 25 MM/HR (0-20)
[2023-09-24 13:26] LABS: SLIDE REVIEW VERIFIED
== END 2023-09-24 10:56 | disposition home or self-care (01) ==
LOC: HO.LAB 10:55
PROVIDERS: PCP Family Medicine; Visit Provider Nurse Practitioner Family
DX: M17.0 Bilateral primary osteoarthritis of knee (principal); M19.041 Primary osteoarthritis, right hand; M19.042 Primary osteoarthritis, left hand; Z79.899 Other long term (current) drug therapy
CPT/HCPCS: 36415; 80053; 85025; 85652; 86140

== ENCOUNTER 2023-12-15 10:08 | Outpatient (AMB) | payer OTHER, SELFPAY ==
--- NOTE | 2023-12-15 10:13 | MHC.OFFVIS ---
Vital Signs 12/15/23 10:14 Height 5 ft 3 in Weight 166 lb 7.184 oz BMI 29.5 BP 122/82 Blood Pressure Location Rt brachial Position Sitting Pulse 81 Pulse Source Doppler Pulse Oximetry (%) 99 Oxygen Delivery Method Room Air Intake Visit Reasons: sarcoidosis Allergies fluconazole [From Diflucan] Allergy (Severe, Verified 09/22/23 12:40) Hives acetaminophen [From VICODIN] Allergy (Unknown, Verified 09/22/23 12:40) HIVES codeine Allergy (Unknown, Verified 09/22/23 12:40) Unknown erythromycin base [ERYTHROMYCIN BASE] Allergy (Unknown, Verified 09/22/23 12:40) HIVES hydrocodone [From VICODIN] Allergy (Unknown, Verified 09/22/23 12:40) HIVES loratadine [From CLARITIN] Allergy (Unknown, Verified 09/22/23 12:40) HTN meperidine [From DEMEROL] Allergy (Unknown, Verified 09/22/23 12:40) UNKNOWN morphine [MORPHINE] Allergy (Unknown, Verified 09/22/23 12:40) UNKNOWN nalbuphine [From NUBAIN] Allergy (Unknown, Verified 09/22/23 12:40) HIVES oxycodone [OXYCODONE] Allergy (Unknown, Verified 09/22/23 12:40) HIVES penicillin V Allergy (Unknown, Verified 09/22/23 12:40) unk Penicillins [PCN] Allergy (Unknown, Verified 09/22/23 12:40) HIVES tramadol [TRAMADOL] Allergy (Unknown, Verified 09/22/23 12:40) NAUSEA & VOMITING vancomycin [VANCOMYCIN] Allergy (Unknown, Verified 09/22/23 12:40) BLISTERS HPI HPI sarcoidosis: Details: 58-year-old lady with underlying history of sarcoidosis diagnosed based on CT in 2005. Patient has been previously seen at [facility] pulmonary service.? Patient was lost to follow-up for the last 2 years and recently came back to reestablish care. She has completed her 2D echocardiogram, CT chest, and pulmonary function test which all were essentially normal. Today she complains of intermittent episodes of dyspnea on exertion, also lower extremity edema and 2-3 pillow orthopnea. 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-steroidal anti-inflammatories (NSAID) Osteoarthritis of right knee Osteoarthritis of knees, bilateral Surgical History H/O shoulder surgery History of back surgery Hx of tubal ligation Family History Mother Heart attack Diabetes HTN (hypertension) Sister Diabetes Heart attack HTN (hypertension) Social History Household Members: Spouse Household Members Other:: son Housing: House Alcohol intake: never Patient Tobacco Use Status: Never used Tobacco service: No Current occupational status: employed 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 Current occupational exposures/hazards: No Sexual orientation: Straight/Heterosexual Gender identity: Female Review of Systems Const Denies daytime sleepiness, Denies excessive sweating, Denies fatigue, Denies fever(s), Denies lethargy, Denies malaise, Denies night sweats, Denies snoring and Denies weight loss Eyes Denies blurry vision and Denies itchy eyes ENT Denies nasal congestion, Denies post nasal drip, Denies sinus pain, Denies sinus pressure and Denies other ( Thrush) Card Denies chest pain, Reports pedal edema, Denies dyspnea, Reports dyspnea on exertion, Reports orthopnea and Denies paroxysmal nocturnal dyspnea Resp Denies cough, Denies hemoptysis, Denies excessive phlegm production, Denies dyspnea, Reports dyspnea on exertion, Denies snoring and Denies wheezing GI Denies abdominal pain and Denies heartburn Musc Denies myalgias, Denies arthralgias and Denies joint swelling Skin/Breast Denies rash Neuro Denies memory loss and Denies seizure-like activity Psych Denies abnormal sleep pattern, Denies anxiety and Denies memory loss Endo Denies excessive sweating, Denies fatigue and Denies heat intolerance Maximiliano/Lymph Denies easy bruising Aller/Immun Denies itchy eyes, Denies seasonal rhinorrhea and Denies wheezing Physical Exam Vital Signs: Last Vital Signs Pulse 81 12/15/23 10:14 BP 122/82 12/15/23 10:14 Pulse Ox 99 12/15/23 10:14 Oxygen Delivery Method Room Air 12/15/23 10:14 BMI result Body Mass Index 29.5 Const General: no acute distress and alert Nutritional Appearance: not obese Orientation/consciousness: Other orientation findings ( oriented) HEENT Head: Yes atraumatic Eyes General: appearance normal, both eyes and all related structures Sclerae: sclerae normal EOM: EOMs intact bilaterally Neck Neck: Yes supple Lymphatic: no lymphadenopathy noted Resp Effort & Inspection: normal respiratory effort and no use of accessory muscles Auscultation: clear to auscultation bilaterally Cardio Rate: regular rate Rhythm: regular rhythm Heart sounds: no gallops, no murmurs and no rubs Skin General skin exam: other ( warm) Extrem General: No clubbing, No cyanosis and Yes edema (1+ bilateral) Assessment & Plan Assessment & Plan (1) Sarcoidosis: Code(s): D86.9 - Sarcoidosis, unspecified Category: Medical Plan: No recent exacerbations. Continue to monitor clinically. (2) Reactive airway disease: Code(s): J45.909 - Unspecified asthma, uncomplicated Category: Medical Plan: Suboptimally controlled as patient has stopped using duo nebs. Restart duo nebs. (3) Dyspnea on exertion: Code(s): R06.09 - Other forms of dyspnea Category: Medical Plan: With significant orthopnea component. Will trying empiric Lasix 20 mg daily. Medications: New furosemide (Lasix) 20 mg PO QAM 7 tabs 0RF Changed From ipratropium-albuterol 0.5 mg-3 mg(2.5 mg base)/3 mL 3 mL inhalation QID PRN To ipratropium-albuterol 0.5 mg-3 mg(2.5 mg base)/3 mL 3 mL inhalation QID PRN 180 mL 6RF shortness of breath 30 days Coding Level of Care Code Est Pt Level 4 (06493) Diagnoses Sarcoidosis D86.9 Reactive airway disease J45.909 Dyspnea on exertion R06.09
[2023-12-15 10:14] VITALS: BP 122/82; PULSE 81; O2SAT 99; BMI 29.5
== END 2023-12-15 10:35 | disposition home or self-care (01) ==
PROVIDERS: PCP Family Medicine; Visit Provider Internal Medicine Pulmonary Disease
DX: D86.9 Sarcoidosis, unspecified (principal); J45.909 Unspecified asthma, uncomplicated; R06.09 Other forms of dyspnea
CPT/HCPCS: 99214

== ENCOUNTER → 2023-12-15 10:08 | Outpatient (BNVA) | payer OTHER, SELFPAY | PROVIDERS: PCP Family Medicine; Visit Provider Internal Medicine Pulmonary Disease | DX: D86.9 Sarcoidosis, unspecified (principal); J45.909 Unspecified asthma, uncomplicated; R06.09 Other forms of dyspnea | CPT/HCPCS: 99212 ==

== ENCOUNTER 2024-06-30 10:33 | Outpatient (AMB) | payer OTHER, SELFPAY ==
[2024-06-30 10:39] VITALS: BP 130/78; PULSE 65; O2SAT 99; BMI 28.1
--- NOTE | 2024-06-30 10:39 | A.OFFVIS_ITS ---
Vital Signs 06/30/24 10:39 Height 5 ft 3 in Weight 158 lb 8.198 oz BMI 28.1 BP 130/78 Blood Pressure Location Lt brachial Position Sitting Pulse 65 Pulse Source Pulse Oximeter Pulse Oximetry (%) 99 Oxygen Delivery Method Room Air Intake Visit Reasons: Sarcoidosis/CM Intake Note: Patient presents today for follow up on osteoarthritis and sarcoidosis. She was last seen in the office by Daniella Fox on 09/22/23. Allergies fluconazole [From Diflucan] Allergy (Severe, Verified 06/30/24 10:42) Hives acetaminophen [From VICODIN] Allergy (Unknown, Verified 06/30/24 10:42) HIVES codeine Allergy (Unknown, Verified 06/30/24 10:42) Unknown erythromycin base [ERYTHROMYCIN BASE] Allergy (Unknown, Verified 06/30/24 10:42) HIVES hydrocodone [From VICODIN] Allergy (Unknown, Verified 06/30/24 10:42) HIVES loratadine [From CLARITIN] Allergy (Unknown, Verified 06/30/24 10:42) HTN meperidine [From DEMEROL] Allergy (Unknown, Verified 06/30/24 10:42) UNKNOWN morphine [MORPHINE] Allergy (Unknown, Verified 06/30/24 10:42) UNKNOWN nalbuphine [From NUBAIN] Allergy (Unknown, Verified 06/30/24 10:42) HIVES oxycodone [OXYCODONE] Allergy (Unknown, Verified 06/30/24 10:42) HIVES penicillin V Allergy (Unknown, Verified 06/30/24 10:42) unk Penicillins [PCN] Allergy (Unknown, Verified 06/30/24 10:42) HIVES tramadol [TRAMADOL] Allergy (Unknown, Verified 06/30/24 10:42) NAUSEA & VOMITING vancomycin [VANCOMYCIN] Allergy (Unknown, Verified 06/30/24 10:42) BLISTERS Medication List - Last Reconciled 06/30/24 by Mary Bonner MD amlodipine 5 mg PO DAILY diclofenac sodium 1% (Voltaren Arthritis Pain) 2 grams topical QID furosemide (Lasix) 20 mg PO QAM ibuprofen 800 mg PO TID ipratropium-albuterol 0.5 mg-3 mg(2.5 mg base)/3 mL 3 mL inhalation QID PRN 30 days HPI Comments Details: Patient is a 59-year-old female with sarcoidosis (2006, lung and erythema nodosum), osteoarthritis involving the hands and the knees, fibromyalgia, here today for follow-up Interval History: Last seen 09/22/2023. At that time received and then injection in her right knee for osteoarthritis. Otherwise no other changes made to her medications. Pulmonology visit 12/15/2023: Completed echo, CT chest and pulmonary function tests which were all essentially normal. Complained of intermittent dyspnea on exertion and was given inhalers as well as empiric Lasix 20 mg daily for lower extremity edema. Currently not on treatment for sarcoidosis from a pulmonology standpoint Today her main complaint is bilateral lower extremity nodules that are painful to touch. She has been taking ibuprofen 800 mg 3 times a day with stabilization of her nodules. Denies shortness of breath Also complain of right shoulder pain and inability to lift her hand above 90 degrees. Recently returned from [place] after having back surgery Rheumatologic History: Diagnosed with sarcoidosis based on a CT scan of the chest in 2005. Currently follows with pulmonology. About 2-3 years ago she also noted bilateral painful nodules appearing on her feet. Biopsied on (not seen) consistent with erythema nodosum. Established care with Rheumatology at [facility] 08/2021 and evaluation including hand x-rays was consistent with osteoarthritis. She also had widespread pain with tender points consistent with fibromyalgia. Current Rheumatology Medication(s): [facility] Medical History (Updated 06/30/24 @ 12:56 by Mary Bonner MD) Frozen shoulder long-term current use of non-steroidal anti-inflammatories (NSAID) Osteoarthritis of right knee Osteoarthritis of knees, bilateral Surgical History H/O shoulder surgery History of back surgery Hx of tubal ligation Family History Mother Heart attack Diabetes HTN (hypertension) Sister Diabetes Heart attack HTN (hypertension) Social History Household Members: Spouse Household Members Other:: son Housing: House Alcohol intake: never Patient Tobacco Use Status: Never used Tobacco service: No Current occupational status: employed 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 Current occupational exposures/hazards: No Sexual orientation: Straight/Heterosexual Gender identity: Female Review of Systems Const Details: Review of Systems Constitutional: Denies fever, chills, weight loss ENT: Denies vision changes, eye pain or eye redness, dental caries, dry mouth GI: Denies nausea, vomiting, diarrhea, abdominal pain, change in BM Pulm: Denies SOB, [place], hemoptysis, wheezing Cards: Denies chest pain, palpitations Skin: Denies Raynaud's, nail changes, photosensitivity, LINEMARKER: Denies headaches, weakness, paresthesias, recurrent falls MSK: as per HPI All other systems reviewed and are unremarkable except noted above Physical Exam Vital Signs: Last Vital Signs Pulse 65 06/30/24 10:39 BP 130/78 06/30/24 10:39 Pulse Ox 99 06/30/24 10:39 Oxygen Delivery Method Room Air 06/30/24 10:39 BMI result Body Mass Index 28.1 Physical Examination CONSTITUITIONAL Patient alert and cooperative. Well appearing and in no apparent painful distress HEENT Conjunctiva and sclera clear. ?Pupils equal round and reactive to light. ?No lymphadenopathy. ?Normal dentition. No oral or nasal ulcers noted. No evidence of discoid rash to the denny of ears CHEST/RESPIRATORY SYSTEM Normal respiratory effort and able to speak in complete sentences. ?Clear to auscultation bilaterally. ?No crackles, rales, rhonchi, wheezes heard. CARDIAC SYSTEM Regular rate and rhythm. ?S1 and S2 heard no murmurs. 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 ?No deformities noted. ?No synovitis noted to the MCPs, PIPs or DIPs. ?No tenderness to palpation of these joints. Wrists: ?Full range of motion at the wrists without pain. ?No tenderness to palpation or synovitis noted to the wrists. Elbows: Full range of motion without pain. No tenderness, weakness, swelling, increased warmth or erythema. Shoulders: Right shoulder with restricted passive and active range of motion. Left shoulder with normal passive range of motion Hips: Full range of motion without pain. Hip bursa: No tenderness to palpation Knees: ?Full range of motion. ?No tenderness, swelling, increased warmth or erythema.?No effusion or crepitations Ankles: Full range of motion. ?No tenderness, swelling, increased warmth or erythema.? SKIN Painful nodules palpated on the lateral aspect of the calves bilaterally. Office Procedures AMB Joint Injection/Aspiration Joint Injection/Aspiration Details: Procedure was explained to the patient and consent was obtained. ? The right shoulder was identified and confirmed with patient. ?This was subsequently cleaned with chlorhexidine x3. ? The area was then anesthetized using ethyl chloride spray. 80 mg Kenalog with 1 cc 1% lidocaine was injected without issue. ?Minimal to no bleeding. ?Patient tolerated procedure. Primary Site: right shoulder Prep: site was prepped using aseptic technique and ethochloride spray was applied Injected: 80 mg of, Kenalog, with 1 mL of and 1% plain lidocaine Approach Used: posterolateral Procedure: The patient tolerated the procedure well Coding 89758 - Large joint Procedure code (CPT) selection complete Office Meds Kenalog 40 mg/mL suspension for injection Performing Provider: Mary Bonner MD Performing Location: [facility] [place] Rheumatology Administered by: Mary Bonner MD on 06/30/24 12:30 Dose Route Admin Location Dispensed Lot Number Expiration Date [facility] Installation Technician 80 mg intra-articular Right shoulder 2 mL [id number] 02/13/27 [address]-2 [employer] lidocaine (PF) 10 mg/mL (1 %) injection solution Performing Provider: Mary Bonner MD Performing Location: [facility] [place] Rheumatology Administered by: Mary Bonner MD on 06/30/24 12:30 Dose Route Admin Location Dispensed Lot Number Expiration Date [facility] Installation Technician 10 mg intra-articular Right shoulder 2 mL [id number] 11/14/26 20343-201-56 [facility] Results Reviewed Results Reviewed: Laboratory Tests 02/21/19 05/29/22 09/24/23 12:50 14:09 11:07 WBC 18.4 H RBC 4.88 Hgb 13.9 Hct 40.8 Plt Count 335 D ESR 32 H 25 H Sodium 140 Potassium 4.2 Chloride 104 Carbon Dioxide 26 BUN 23 H Creatinine 1.07 C-Reactive Protein 0.13 Rheumatoid Factor < 15.0 Cycl Citrul Peptide IgG <16 KOKO Screen Positive H KOKO Titer 1:[address] Chest 03/2023 FINDINGS: TARIFF CLERK: Unremarkable LUNGS: Trachea and bronchi are patent. Apical pleural thickening. 4 and 2 mm right middle lobe nodules, 12:33. 2 mm subpleural, 12:32 MEDIASTINUM: Unremarkable thyroid. Nonspecific mediastinal lymph nodes. No pathologic lymphadenopathy. Nonenlarged heart. Trace pericardial thickening/fluid. Nonaneurysmal aorta with trace atherosclerotic calcifications. Nonenlarged pulmonary arteries. CORONARY ARTERY CALCIFICATION: None visualized on this study. PLEURA: There is no pleural effusion. No pleural mass or thickening. AXILLA: No lymphadenopathy. UPPER ABDOMEN: Cholecystectomy clips. No upper abdominal pathology recognized. OSSEOUS AND SOFT TISSUE STRUCTURES: Bilateral implants. CT/CT chest wo IV con IMPRESSION: No change right middle lobe pulmonary nodules, none larger than 4 mm. No pathologic lymphadenopathy. Assessment & Plan Assessment & Plan (1) Sarcoidosis: Code(s): D86.9 - Sarcoidosis, unspecified Category: Medical Plan: #Sarcoidosis Patient currently having a flare of her sarcoidosis manifested with erythema nodosum. Treatment options include NSAIDs and steroids. Patient is currently on ibuprofen 800 mg 3 times a day which she says she believes is helping as the lesions have not gotten worse. She will continue with same. Can consider immunosuppression if the interval between these episodes shortened. (2) Frozen shoulder: Code(s): M75.00 - Adhesive capsulitis of unspecified shoulder Category: Medical Qualifiers: Laterality: right Qualified Code(s): M75.01 - Adhesive capsulitis of right shoulder Plan: #Right shoulder - frozen shoulder Patient with restricted range of motion in all planes to active and passive movement consistent with adhesive capsulitis. Status post steroid injection to the right shoulder. Physical therapy referral Plan I spent 60 minutes reviewing the record and labs, seeing the patient, discussing the treatment plan and documenting in the medical record ? Orders: Orders Angiotensin Converting Enzyme Today D86.9 - Sarcoidosis, unspecified Complete Blood Count Auto Diff Today D86.9 - Sarcoidosis, unspecified Comprehensive Met. Panel Today D86.9 - Sarcoidosis, unspecified Rheumatoid Factor Today D86.9 - Sarcoidosis, unspecified AMB Joint Injection/Aspiration Today M75.00 - Adhesive capsulitis of unspecified shoulder PT Evaluation and Treatment Today M75.01 - Adhesive capsulitis of right shoulder C Reactive Protein Today D86.9 - Sarcoidosis, unspecified Erythrocyte Sedimentation Rate Today D86.9 - Sarcoidosis, unspecified CT chest wo con - High Res Today D86.9 - Sarcoidosis, unspecified Coding Level of Care Code Est Pt Level 5 (54415) Complex EM visit Add On G2211 Diagnoses Sarcoidosis D86.9 Adhesive capsulitis of right shoulder M75.01 Laterality: right CPT Codes Coding - 47905 Large joint: 31390 - Large joint ([id number])
== END 2024-06-30 11:31 | disposition home or self-care (01) ==
PROVIDERS: PCP Family Medicine; Visit Provider Student in an Organized Health Care Education/Training Program
DX: D86.9 Sarcoidosis, unspecified (principal); M75.01 Adhesive capsulitis of right shoulder
CPT/HCPCS: 20610; 99215

== ENCOUNTER → 2024-06-30 10:33 | Outpatient (BNVA) | payer OTHER, SELFPAY | PROVIDERS: PCP Family Medicine; Visit Provider Student in an Organized Health Care Education/Training Program | DX: D86.9 Sarcoidosis, unspecified (principal); M75.01 Adhesive capsulitis of right shoulder | CPT/HCPCS: 20610; 99212; J2003; J3300 ==

== ENCOUNTER 2024-07-06 12:11 | Outpatient (REF) | payer OTHER, SELFPAY ==
[2024-07-06 12:37] LABS: MANUAL DIFF FLAG NO
[2024-07-06 13:42] LABS: Basophils Percent Auto 0.5 % (0-2); Eosinophils Percent Auto 0.2 % (0-4); Hemoglobin 13.8 g/dl (12.0-16.0); Imm Gran Abs Auto 0.03 X10*3/uL (0.00-0.03); Imm Gran Pct Auto 0.3 % (0.0-0.4); Lymphocytes Absolute Auto 2.3 X10*3/uL (1.2-4.9); Lymphocytes Percent Auto 25.6 % (20-40); Mean Corpuscular HGB Conc 33.7 g/dl (31.0-35.0); Mean Corpuscular Hemoglobin 27.9 pg (27.0-33.0); Mean Corpuscular Volume 82.8 fL (80.0-98.0); Mean Platelet Volume 10.2 fL (9.4-12.3); Monocytes Absolute Auto 0.3 X10*3/uL (0.1-1.2); Monocytes Percent Auto 3.8 % (2-11); Neutrophils Absolute Auto 6.2 x10*3/uL (2.0-8.3); Neutrophils Percent Auto 69.6 % (45-73); Platelet Count 311 X10*3/uL (160-400); Red Blood Count 4.95 X10*6/uL (4.20-5.50); Red Cell Distribution Width 12.7 % (11.0-16.0); White Blood Count 8.9 X10*3/uL (4.8-10.8)
[2024-07-06 14:13] LABS: Alanine Aminotransferase 24 U/L (0-31); Albumin Level 4.5 g/dL (3.5-5.0); Alkaline Phosphatase 119 U/L (39-117); Anion Gap 12 (12-20); Aspartate Amino Transferase 25 U/L (5-31); Bilirubin Total 0.7 mg/dL (0.0-1.0); Blood Urea Nitrogen 15 mg/dL (9-16); C Reactive Protein < 0.10 mg/dL (< or = 0.50); Calcium 10.2 mg/dL (8.4-10.2); Carbon Dioxide 27 mmol/L (22-29); Chloride 104 mmol/L (96-108); Estimated Glomerular Filt Rate > 60; Glucose Random 97 mg/dL (60-115); Potassium 4.2 mmol/L (3.3-5.1); Sodium 139 mmol/L (135-145); Total Protein 8.3 g/dL (6.5-8.0)
[2024-07-06 14:15] LABS: Rheumatoid Factor < 13.0 IU/mL (<15.0)
[2024-07-06 14:21] LABS: Erythrocyte Sedimentation Rate 16 MM/HR (0-20)
[2024-07-11 21:48] LABS: Angiotensin Converting Enzyme 33 U/L (9-67)
== END 2024-07-06 12:12 | disposition home or self-care (01) ==
LOC: HO.LAB 12:11
PROVIDERS: PCP Family Medicine; Visit Provider Student in an Organized Health Care Education/Training Program
DX: D86.9 Sarcoidosis, unspecified (principal)
CPT/HCPCS: 36415; 80053; 82164; 85025; 85652; 86140; 86431

== ENCOUNTER 2024-08-23 16:29 | Outpatient (REF) | payer OTHER, SELFPAY ==
--- NOTE | ~2024-08-23 | CT_ITS ---
CLINICAL HISTORY: D86.9 - Sarcoidosis, unspecified Chest CT without contrast Comparison: None Findings: There are faint reticulonodular opacities at the periphery of the right upper lobe. There are multiple small pulmonary nodules measuring up to 5 mm in size (right middle lobe image 113). There is mild bilateral apical scarring. There is no honeycombing, consolidation or pleural effusion. Normal heart size. No coronary artery calcifications. Unremarkable visualized thyroid gland. No mediastinal or hilar lymphadenopathy. Status post cholecystectomy. No acute abnormality of the visualized abdomen. There are bilateral breast implants. No acute bony abnormality. Impression: 1. Minimal peripheral reticulonodular opacities within the right upper lobe, compatible with scarring. 2. Multiple small pulmonary nodules measuring up to 5 mm in size. Recommend follow-up in 3-6 months. This document has been electronically signed by: Jessie Rios MD on 08/24/2024 13:54:35
--- OUTSIDE RECORDS SUMMARY | 2024-08-23 16:31 | XMS_ITS | Continuity of Care Document ---
Author Name [facility] Organization [facility] Care Team Providers Care Gear Tester Name Role Phone [facility] Unavailable Unavailable Medications Combined list of outpatient medications from Department of Defense and Veterans Affairs facilities.Medications provided include 1) outpatient medications from the last 15 months, and 2) patient-reported medications. Medication Details Route Status Patient Instructions Prescription Expires Prescription Number Last Dispense Date Ordering Provider Order Date Order Qty Source CLONAZEPAM (CLONAZEPAM ), 0.5MG, TABLET, ORAL, TEVA [place], 500 ea. BOTTLE Active [id number] 2023 30 Pharmac y Data Transac tion Service Facilit y ESCITALOPRA M OXALATE (ESCITALOPR AM OXALATE), 5 MG, TABLET, ORAL, TORRENT PHARMAC, 100 ea. BOTTLE Cancele d [id number] : 2023 0 Pharmac y Data Transac tion Service Facilit y ESCITALOPRA M OXALATE (ESCITALOPR AM OXALATE), 5 MG, TABLET, ORAL, TORRENT PHARMAC, 100 ea. BOTTLE Active [id number] 4 2023 30 Pharmac y Data Transac tion Service Facilit y FUROSEMIDE (furosemide ), 20 MG, TABLET, ORAL, RISING PHARM, 1000 ea. BOTTLE Active [id number] 4 2023 7 Pharmac y Data Transac tion Service Facilit y IBUPROFEN (ibuprofen) , 800 MG, TABLET, ORAL, TIME-CAP LABS, 500 ea. BOTTLE Active [id number] 4 2023 90 Pharmac y Data Transac tion Service Facilit y IPRATROPIUM -ALBUTEROL (ipratropiu m bromide/alb uterol sulfate), 0.5-3MG/3, AMPUL-NEB, INHALATION, SUN PHARMA GLOB, 3 ml VIAL Cancele d [id number] : 2023 0 Pharmac y Data Transac tion Service Facilit y IPRATROPIUM -ALBUTEROL (ipratropiu m bromide/alb uterol sulfate), 0.5-3MG/3, AMPUL-NEB, INHALATION, SUN PHARMA GLOB, 3 ml VIAL Active [id number] 4 2023 180 Pharmac y Data Transac tion Service Facilit y Social History Combined list of available smoking, tobacco, and other social history from Department of Defense and Veterans Affairs facilities. Social History Type Response Date Comment Sour e This section is an empty social history section. DoD
== END 2024-08-23 16:30 | disposition home or self-care (01) ==
LOC: HO.CT 16:29
PROVIDERS: PCP Family Medicine; Visit Provider Student in an Organized Health Care Education/Training Program
DX: D86.9 Sarcoidosis, unspecified (principal)
CPT/HCPCS: 71250

== ENCOUNTER → 2024-08-23 16:31 | Outpatient (BNV) | payer OTHER, SELFPAY | PROVIDERS: PCP Family Medicine; Visit Provider Radiology Diagnostic Radiology | DX: D86.9 Sarcoidosis, unspecified (principal) | CPT/HCPCS: 71250 ==

== ENCOUNTER 2024-10-26 08:56 | Outpatient (REF) | payer OTHER, SELFPAY ==
[2024-10-26 10:27] LABS: MANUAL DIFF FLAG NO
[2024-10-26 10:46] LABS: Basophils Percent Auto 0.4 % (0-2); Eosinophils Percent Auto 0.5 % (0-4); Hematocrit 42.3 % (37.0-47.0); Hemoglobin 13.8 g/dl (12.0-16.0); Imm Gran Abs Auto 0.03 X10*3/uL (0.00-0.03); Imm Gran Pct Auto 0.4 % (0.0-0.4); Lymphocytes Absolute Auto 2.2 X10*3/uL (1.2-4.9); Lymphocytes Percent Auto 27.9 % (20-40); Mean Corpuscular HGB Conc 32.6 g/dl (31.0-35.0); Mean Corpuscular Hemoglobin 28.1 pg (27.0-33.0); Mean Corpuscular Volume 86.2 fL (80.0-98.0); Mean Platelet Volume 9.7 fL (9.4-12.3); Monocytes Absolute Auto 0.5 X10*3/uL (0.1-1.2); Neutrophils Absolute Auto 5.2 x10*3/uL (2.0-8.3); Neutrophils Percent Auto 64.8 % (45-73); Platelet Count 256 X10*3/uL (160-400); Red Blood Count 4.91 X10*6/uL (4.20-5.50); Red Cell Distribution Width 13.1 % (11.0-16.0)
[2024-10-26 11:28] LABS: Alanine Aminotransferase 19 U/L (0-31); Albumin Level 4.1 g/dL (3.5-5.0); Alkaline Phosphatase 100 U/L (39-117); Anion Gap 10 (12-20); Aspartate Amino Transferase 19 U/L (5-31); Bilirubin Total 0.7 mg/dL (0.0-1.0); Blood Urea Nitrogen 16 mg/dL (9-16); C Reactive Protein 0.16 mg/dL (< or = 0.50); Calcium 9.5 mg/dL (8.4-10.2); Carbon Dioxide 29 mmol/L (22-29); Chloride 106 mmol/L (96-108); Estimated Glomerular Filt Rate > 60; Glucose Random 96 mg/dL (60-115); Potassium 4.5 mmol/L (3.3-5.1); Sodium 140 mmol/L (135-145); Total Protein 8.2 g/dL (6.5-8.0)
[2024-10-26 12:01] LABS: Erythrocyte Sedimentation Rate 20 MM/HR (0-20)
--- OUTSIDE RECORDS SUMMARY | 2024-10-26 12:22 | XMS_ITS | Clinical Summary ---
Author Organization [facility], Address [address] [place] [address] [place] [address] Phone Care Team Providers Care Transit Planning Manager Name Role Phone Melvin Kovacs MD Primary Care Provider [phone] Allergies Active Allergy Reactions Criticality Noted Date Comments Meperidine 12/29/2023 Erythromycin 12/29/2023 Fish-Derived Products 12/29/2023 Latex 12/29/2023 Morphine 12/29/2023 Other 12/29/2023 VICODIN Penicillins 12/29/2023 Tramadol 12/29/2023 Medications amLODIPine (NORVASC) 5 MG tablet Take 5 mg by mouth 1 (one) time each day Active clonazePAM (KlonoPIN) 0.5 MG tablet Take 0.5 mg by mouth 2 (two) times a day if needed for anxiety Active hydroCHLOROthia zide 25 MG tablet Take 25 mg by mouth 1 (one) time each day Active ibuprofen (ADVIL,MOTRIN) 600 MG tablet Take 600 mg by mouth every 6 (six) hours if needed for mild pain Active meclizine (ANTIVERT) 25 MG tablet Take 25 mg by mouth 3 (three) times a day if needed for dizziness Active oxyCODONE (ROXICODONE) 5 MG immediate release tablet Take 5 mg by mouth every 6 (six) hours if needed Active Active Problems Problem Noted Date Diagnosed Date Sarcoidosis 03/16/2024 Psoriasis 03/16/2024 Osteoarthritis 03/16/2024 Obese class I 03/16/2024 Neoplasm of meninges 03/16/2024 Migraine 03/16/2024 Lipoma of abdominal wall 03/16/2024 Labile blood pressure 03/16/2024 Irritable bowel syndrome 03/16/2024 Heart valve disorder 03/16/2024 FH: Myocardial infarction 03/16/2024 Lightheadedness 03/16/2024 Disorder of thyroid gland 03/16/2024 Chest pain 03/16/2024 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 Stable and/or controlled chronic conditions may reduce complications associated with your chronic condition (s). Allergic rhinitis 03/16/2024 Abnormal cervical Papanicolaou smear 03/16/2024 Spinal stenosis of lumbar re gion with neurogenic claudication 12/29/2023 Meningioma 02/26/2023 Overview (03/16/2024): Last Assessment & Plan: Nicolette reports that she was found with brain meningioma in 2020 and is following with [facility] neurologist every 6 months because initial size was around 6 mm and the follow-up imaging revealed enlargement to 7 mm per her report. She remains asymptomatic. Bilateral wrist pain 09/24/2021 Overview (03/16/2024): Last Assessment & Plan: Due to bilateral wrist pain and her reports about nice response to intramuscular long-acting steroid injection I agreed to inject it today. She reports at least 4 or more months of relief usually. Procedure: After an informed oral consent, under sterile conditions using Ethyl chloride spray for local anesthesia I have injected 60 mg DepoMedrol and 1.5 cc 1% Lidocaine into outer quadrant of Right buttock uneventfully. Details of post-procedure care were explained to the patient in the office and given in writing. Provider: Macarena Peña MD Patient: Nicolette Soto : 1965 Date: 09/24/2021 Postmenopausal bleeding 02/01/2019 Overview (03/16/2024): Normal SHG, neg endometrial bx; some apparent scarring or adhesion JERILYN s/p 6 sections Last Assessment & Plan: No need for further action, call prn ongoing bleeding Pain of right knee region 09/20/2018 Overview (03/16/2024): Last Assessment & Plan: Acute flareup of medial compartment and patellofemoral osteoarthritis will be treated in the right knee with intra-articular corticosteroid injection today, relative rest, continuance of 800 mg of ibuprofen twice daily as needed. Candidiasis of vagina 09/05/2018 Depressive disorder 04/26/2018 Overview (03/16/2024): Last Assessment & Plan: The patient's depression may affect the presenting problem of surgical procedure (s) and may increase the risk of slow healing wound (s), infection (s) and the need to assure stability to optimize decisions and wound care. Stable and/or controlled chronic conditions may reduce complications associated with your chronic condition (s). Recurrent major depressive episodes, moderate Fibromyalgia 10/06/2017 Overview (03/16/2024): Last Assessment & Plan: We discussed the diagnosis of fibromyalgia, its natural history, and treatment. Specifically, we discussed that treatment requires many interventions and recognition that we are often unable to get patients completely pain free. Management of fibromyalgia requires patient engagement to address any underlying depression, anxiety, or sleep disorder. Further, patients are encouraged to engage in regular physical activity. Some studies have suggested that Yaron Chi is effective. Other physical activity may including water-based aerobics, etc. In terms of pharmacotherapy, there are many options, including tricyclic antidepressants, duloxetine, gabapentin or pregabalin, and cyclobenzaprine as well as other similar medications to those listed. In this case, the patient might try to focus on nonpharmacologic measures as described in the book written by Dr Tito Portillo Full catastrophe living addressing management strategies by mindfulness approach. Another great resource is book by Dr. Seema Acevedo Managing pain before it manages you Herpes simplex 09/09/2017 Overview (03/16/2024): Last Assessment & Plan: rec acyclovir, smaller tabs more f dosing Prefers to avoid daily suppression, has 4? Per year Adhesive capsulitis of left shoulder 08/10/2017 Overview (03/16/2024): Last Assessment & Plan: Discussed left shoulder pain and adhesive capsulitis. She will continue to do range of motion exercises and go for an intra-articular cortisone injection by the orthopedic surgeon next month. Pain of left shoulder region 07/26/2017 Right upper quadrant pain 08/16/1994 Overview (03/16/2024): [address] 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 She is scheduled for more gastroenterologic testing. She has had no melena or hematochezia and no fever or chills. Weight is stable but her appetite is only fair. Believe the much of her pain will be reduced once this is taking care of. There are no signs or symptoms of inflammatory bowel disease or ulcers. She will remain on omeprazole. Greater than 50% of this 28-minute visit was spent in [id number] conversation with the patient going over the natural history and treatment of median arcuate ligament syndrome and its role in perpetuation of her chronic painful fibromyalgia syndrome. We also went over the risks and benefits of continued use of Cymbalta. All of her questions were answered. Last Assessment & Plan: The patient has had a deep, sharp, stabbing RUQ abdominal pain since December of this year. This can be worse after eating as well as with certain positions. She has no gallbladder, workup has been negative and all modalities of treatment have failed. She would like exploratory laparoscopy as she feels there has to be something in her abdomen causing her symptoms. I explained that imaging is better at finding something inside the abdomen than looking around during a surgery. I have agreed to do this procedure with the understanding that this will be a one-shot deal, I will not perform this procedure on her again and that there are additional risks involved. Plan is for exploratory laparoscopy, lysis of adhesions and possible repair of hernia with mesh if a hernia is found. I had a conversation with the patient today with regard to exploratory laparoscopy/hernia repair surgery. I explained that she may have a lot of scar tissue and that nothing can be done about that as it just creates more. I also explained the risks and benefits of exploratory lap/possible hernia repair, the risks including but not limited to infection, bleeding, chronic pain, recurrence, scar, failure to alleviate pain, need for an open operation, damage to organs and heart/lung risks of anesthesia, as well as the additional risks of not finding a cause for her pain, damage to bowel, creation of further scar tissue, risk of not being able to proceed due to extensive scar tissue. She understands these risks and wishes to proceed. Social History Tobacco Use Types Packs/Day Years Used Date Smoking Tobacco: Never Assessed Comments Unknown Sex and Gender Information Value Date Recorded Sex Assigned at Not on file Legal Sex Female 9:01 AM EDT Gender Identity Not on file Sexual Orientation Not on file Last Filed Vital Signs Vital Sign Reading Time Taken Comments Blood Pressure 127/80 03/17/2024 11:48 AM EDT Pulse 71 03/17/2024 11:48 AM EDT Temperature 36.6 ??C (97.8 ??F) 03/17/2024 11:48 AM E DT Respiratory Rate 16 03/17/2024 11:48 AM EDT Oxygen Saturation 100% 03/17/2024 11:48 AM EDT Inhaled Oxygen Concentration - - Weight 69.4 kg (153 lb) 03/17/2024 11:48 AM EDT Height 160 cm (5' 3 ) 03/17/2024 11:48 AM EDT Body Mass Index 27.1 03/17/2024 11:48 AM EDT Plan of Treatment Health Maintenance Due Date Last Done Comments Breast Cancer Screening 1965 Pneumococcal Vaccine: Pediat rics (0 to 5 Years) and At-Risk Patients (6 to 64 Years) (1 of 2 - PCV) 1970 Colorectal Cancer Screening: Annual FOBT 2013 Colorectal Cancer Screening: Colonoscopy 2013 Colorectal Cancer Screening: Sigmoidoscopy 2013 Influenza Vaccine (#1) 2024 Hepatitis B Vaccine Aged Out No longe r eligible based on patient's age to complete this topic Insurance Care Teams Transit Planning Manager Relationship Specialty Start Date End Date Melvin Kovacs MD [address] [place] [address] PCP - General Family Medicine 12/29/23
[2024-10-31 15:43] LABS: Angiotensin Converting Enzyme 25 U/L (9-67)
== END 2024-10-26 08:57 | disposition home or self-care (01) ==
LOC: HO.LAB 08:56
PROVIDERS: PCP Family Medicine; Visit Provider Student in an Organized Health Care Education/Training Program
DX: D86.9 Sarcoidosis, unspecified (principal); M65.841 Other synovitis and tenosynovitis, right hand; M75.01 Adhesive capsulitis of right shoulder
CPT/HCPCS: 20550; 36415; 80053; 82164; 85025; 85652; 86140; 99212; J3300

== ENCOUNTER 2024-10-26 08:56 | Outpatient (AMB) | payer OTHER, SELFPAY ==
--- NOTE | 2024-10-26 09:00 | MHC.OFFVIS ---
Vital Signs 10/26/24 09:06 Height 5 ft 3 in Weight 155 lb 6.814 oz BMI 27.5 BP 120/80 Blood Pressure Location Lt brachial Position Sitting Pulse 75 Pulse Source Pulse Oximeter Pulse Oximetry (%) 97 Oxygen Delivery Method Room Air Intake Visit Reasons: FOLLOW UP Intake Note: Patient presents for follow up. Allergies fluconazole [From Diflucan] Allergy (Severe, Verified 10/26/24 09:04) Hives acetaminophen [From VICODIN] Allergy (Unknown, Verified 10/26/24 09:04) HIVES codeine Allergy (Unknown, Verified 10/26/24 09:04) Unknown erythromycin base [ERYTHROMYCIN BASE] Allergy (Unknown, Verified 10/26/24 09:04) HIVES hydrocodone [From VICODIN] Allergy (Unknown, Verified 10/26/24 09:04) HIVES loratadine [From CLARITIN] Allergy (Unknown, Verified 10/26/24 09:04) HTN meperidine [From DEMEROL] Allergy (Unknown, Verified 10/26/24 09:04) UNKNOWN morphine [MORPHINE] Allergy (Unknown, Verified 10/26/24 09:04) UNKNOWN nalbuphine [From NUBAIN] Allergy (Unknown, Verified 10/26/24 09:04) HIVES oxycodone [OXYCODONE] Allergy (Unknown, Verified 10/26/24 09:04) HIVES penicillin V Allergy (Unknown, Verified 10/26/24 09:04) unk Penicillins [PCN] Allergy (Unknown, Verified 10/26/24 09:04) HIVES tramadol [TRAMADOL] Allergy (Unknown, Verified 10/26/24 09:04) NAUSEA & VOMITING vancomycin [VANCOMYCIN] Allergy (Unknown, Verified 10/26/24 09:04) BLISTERS HPI Comments Details: Patient is a 59-year-old female with sarcoidosis (2006, lung and erythema nodosum), osteoarthritis involving the hands and the knees, fibromyalgia, here today for follow-up Interval History: Last seen 06/30/2024 with me. At that time her main complaint was bilateral lower extremity nodules that are painful to touch. She has been taking ibuprofen 800 mg 3 times a day with stabilization of her nodules. Denies shortness of breath. Also complained of right shoulder pain and inability to lift her hand above 90 degrees. diagnosed with frozen shoulder and send to physical therapy Recently returned from [place] after having back surgery Pulmonology visit 12/15/2023: Completed echo, CT chest and pulmonary function tests which were all essentially normal. Complained of intermittent dyspnea on exertion and was given inhalers as well as empiric Lasix 20 mg daily for lower extremity edema. Currently not on treatment for sarcoidosis from a pulmonology standpoint today patient reports resolution of her nodules. No inflammatory arthritis symptoms. No pulmonary symptoms. Complaining today of pain with movement of her right 4th digit. Rheumatologic History: Diagnosed with sarcoidosis based on a CT scan of the chest in 2005. Currently follows with pulmonology. About 2-3 years ago she also noted bilateral painful nodules appearing on her feet. Biopsied on (not seen) consistent with erythema nodosum. Established care with Rheumatology at [place] 08/2021 and evaluation including hand x-rays was consistent with osteoarthritis. She also had widespread pain with tender points consistent with fibromyalgia. 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 of non-steroidal anti-inflammatories (NSAID) Osteoarthritis of right knee Osteoarthritis of knees, bilateral Surgical History H/O shoulder surgery History of back surgery Hx of tubal ligation Family History Mother Heart attack Diabetes HTN (hypertension) Sister Diabetes Heart attack HTN (hypertension) Social History Household Members: Spouse Household Members Other:: son Housing: House Alcohol intake: never Patient Tobacco Use Status: Never used Tobacco service: No Current occupational status: employed 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 Current occupational exposures/hazards: No Sexual orientation: Straight/Heterosexual Gender identity: Female Review of Systems Const Details: Review of Systems Constitutional: Denies fever, chills, weight loss ENT: Denies vision changes, eye pain or eye redness, dental caries, dry mouth GI: Denies nausea, vomiting, diarrhea, abdominal pain, change in BM Pulm: Denies SOB, [place], hemoptysis, wheezing Cards: Denies chest pain, palpitations Skin: Denies Raynaud's, nail changes, photosensitivity, HOG SCRAPER: Denies headaches, weakness, paresthesias, recurrent falls MSK: as per HPI All other systems reviewed and are unremarkable except noted above Physical Exam Vital Signs: Last Vital Signs Pulse 75 10/26/24 09:06 BP 120/80 10/26/24 09:06 Pulse Ox 97 10/26/24 09:06 Oxygen Delivery Method Room Air 10/26/24 09:06 BMI result Body Mass Index 27.5 vital signs reviewed Physical Examination CONSTITUITIONAL Patient alert and cooperative. Well appearing and in no apparent painful distress HEENT Conjunctiva and sclera clear. ?Pupils equal round and reactive to light. ?No lymphadenopathy. ?Normal dentition. No oral or nasal ulcers noted. No evidence of discoid rash to the denny of ears CHEST/RESPIRATORY SYSTEM Normal respiratory effort and able to speak in complete sentences. ?Clear to auscultation bilaterally. ?No crackles, rales, rhonchi, wheezes heard. CARDIAC SYSTEM Regular rate and rhythm. ?S1 and S2 heard no murmurs. ?Radial pulses intact bilaterally MSK Hands: ?Good barrel leveler strength bilaterally - 5/5. ?No deformities noted. ?No synovitis noted to the MCPs, PIPs or DIPs. ?No tenderness to palpation of these joints. tenderness to palpation of the right 4th flexor tendon at the level of the A1 shonda Wrists: ?Full range of motion at the wrists without pain. ?No tenderness to palpation or synovitis noted to the wrists. Elbows: Full range of motion without pain. No tenderness, weakness, swelling, increased warmth or erythema. Shoulders: Right shoulder with restricted passive and active range of motion. Left shoulder with normal passive range of motion Hips: Full range of motion without pain. Hip bursa: No tenderness to palpation Knees: ?Full range of motion. ?No tenderness, swelling, increased warmth or erythema.?No effusion or crepitations Ankles: Full range of motion. ?No tenderness, swelling, increased warmth or erythema.? SKIN no rashes Office Procedures AMB Joint Injection/Aspiration Joint Injection/Aspiration Details: Procedure was explained to the patient and consent was obtained. The area of interest was identified and confirmed with patient. This was subsequently cleaned with chlorhexidine x3. The area was then anesthetized using ethyl chloride spray. 20 mg Kenalog with 0.1 cc 1% lidocaine was injected without issue. Minimal to no bleeding. Patient tolerated procedure. Primary Site: right trigger finger Prep: site was prepped using aseptic technique and ethochloride spray was applied Injected: 20 mg of, Kenalog and 1% plain lidocaine Procedure: The patient tolerated the procedure well Coding 01662 - Bicipital Groove Injection Procedure code (CPT) selection complete Office Meds lidocaine (PF) 10 mg/mL (1 %) injection solution Performing Provider: Mary Bonner MD Performing Location: [facility] Rheumatology Administered by: Mary Bonner MD on 10/26/24 09:40 Dose Route Admin Location Dispensed Lot Number Expiration Date [facility] Credit Intern 0.1 mL Infiltration right 4th flexor tendon 2 mL [id number] 11/14/26 20121-861-27 [employer] Kenalog 40 mg/mL suspension for injection Performing Provider: Mary Bonner MD Performing Location: [facility] Rheumatology Administered by: Mary Bonner MD on 10/26/24 09:40 Dose Route Admin Location Dispensed Lot Number Expiration Date [facility] Credit Intern 20 mg Tendon Sheath Inj. right 4th flexor tendon. 1 mL [id number] 02/13/26 [address]-5 [employer] Results Reviewed Results Reviewed: Laboratory Tests 07/06/24 12:36 WBC 8.9 RBC 4.95 Hgb 13.8 Hct 41.0 Plt Count 311 ESR 16 Sodium 139 Potassium 4.2 Chloride 104 Carbon Dioxide 27 BUN 15 Creatinine 0.85 Calcium 10.2 Total Bilirubin 0.7 AST 25 ALT 24 Alkaline Phosphatase 119 H C-Reactive Protein < 0.10 Total Protein 8.3 H Albumin 4.5 Angiotensin Convert Enz 33 Immunology labs 02/21/19 05/29/22 09/24/23 12:50 14:09 11:07 Rheumatoid Factor < 15.0 Cycl Citrul Peptide IgG <16 KOKO Screen Positive H KOKO Titer 1:[address] Chest 03/2023 FINDINGS: METER READER INSPECTOR: Unremarkable LUNGS: Trachea and bronchi are patent. Apical pleural thickening. 4 and 2 mm right middle lobe nodules, 12:33. 2 mm subpleural, 12:32 MEDIASTINUM: Unremarkable thyroid. Nonspecific mediastinal lymph nodes. No pathologic lymphadenopathy. Nonenlarged heart. Trace pericardial thickening/fluid. Nonaneurysmal aorta with trace atherosclerotic calcifications. Nonenlarged pulmonary arteries. CORONARY ARTERY CALCIFICATION: None visualized on this study. PLEURA: There is no pleural effusion. No pleural mass or thickening. AXILLA: No lymphadenopathy. UPPER ABDOMEN: Cholecystectomy clips. No upper abdominal pathology recognized. OSSEOUS AND SOFT TISSUE STRUCTURES: Bilateral implants. CT/CT chest wo IV con IMPRESSION: No change right middle lobe pulmonary nodules, none larger than 4 mm. No pathologic lymphadenopathy. Assessment & Plan Assessment & Plan (1) Sarcoidosis: Code(s): D86.9 - Sarcoidosis, unspecified Category: Medical Plan: #Sarcoidosis patient is a 59-year-old female with history of sarcoidosis currently in remission. The nodules (erythema nodosum) have resolved. No pulmonary symptoms at this time and no inflammatory arthritis. We will continue to monitor off immunosuppression Plan - No immunosuppression at this time - Labs today: CBC, CMP, ESR, CRP, LAI - Follow up with pulm - RTC 4-5 months (2) Frozen shoulder: Code(s): M75.00 - Adhesive capsulitis of unspecified shoulder Category: Medical Qualifiers: Laterality: right Qualified Code(s): M75.01 - Adhesive capsulitis of right shoulder Plan: #Right shoulder - frozen shoulder Improved (3) Flexor tenosynovitis of finger: Code(s): M65.9 - Synovitis and tenosynovitis, unspecified Category: Medical Plan: #Flexor tenosynovitis of the 4th digit of the right hand status post steroid injection today Plan I spent 27 minutes reviewing the record and labs, seeing the patient, discussing the treatment plan and documenting in the medical record ? Orders: Orders Complete Blood Count Auto Diff Today D86.9 - Sarcoidosis, unspecified Comprehensive Met. Panel Today D86.9 - Sarcoidosis, unspecified Erythrocyte Sedimentation Rate Today D86.9 - Sarcoidosis, unspecified Angiotensin Converting Enzyme Today D86.9 - Sarcoidosis, unspecified C Reactive Protein Today D86.9 - Sarcoidosis, unspecified AMB Joint Injection/Aspiration Today M65.9 - Synovitis and tenosynovitis, unspecified Medications: New lidocaine (PF) 0.1 mL Infiltration ONCE 2 mL 0RF M65.9 - Synovitis and tenosynovitis, unspecified Kenalog (triamcinolone acetonide) 20 mg (0.5 mL) Tendon Sheath Inj. ONCE 0.5 mL 0RF NS M65.9 - Synovitis and tenosynovitis, unspecified Coding Level of Care Code Est Pt Level 3 (59478) Complex EM visit Add On G2211 Diagnoses Sarcoidosis D86.9 Adhesive capsulitis of right shoulder M75.01 Laterality: right Flexor tenosynovitis of finger M65.9 CPT Codes Coding - Joint 1: 38016 - Bicipital Groove Injection ([id number])
[2024-10-26 09:06] VITALS: BP 120/80; PULSE 75; O2SAT 97; BMI 27.5
== END 2024-10-26 09:37 | disposition home or self-care (01) ==
LOC: HO.RHE 08:57
PROVIDERS: PCP Family Medicine; Visit Provider Student in an Organized Health Care Education/Training Program
DX: D86.9 Sarcoidosis, unspecified (principal); M75.01 Adhesive capsulitis of right shoulder; M65.341 Trigger finger, right ring finger
CPT/HCPCS: 20550; 99213

== ENCOUNTER 2025-04-25 11:03 | Outpatient (AMB) | payer OTHER, SELFPAY ==
--- NOTE | 2025-04-25 11:12 | A.OFFVIS_ITS ---
Vital Signs 04/25/25 11:19 Height 5 ft 3 in Weight 156 lb 4.924 oz BMI 27.7 BP 134/80 Blood Pressure Location Rt brachial Position Sitting Pulse 70 Pulse Source Pulse Oximeter Pulse Oximetry (%) 98 Oxygen Delivery Method Room Air Intake Visit Reasons: FOLLOW UP Intake Note: Patient presents for Sarcoidosis follow up. Allergies fluconazole (From Diflucan) Allergy (Severe, Verified 04/25/25 11:17) Hives acetaminophen (From VICODIN) Allergy (Unknown, Verified 04/25/25 11:17) HIVES codeine Allergy (Unknown, Verified 04/25/25 11:17) Unknown erythromycin base (ERYTHROMYCIN BASE) Allergy (Unknown, Verified 04/25/25 11:17) HIVES hydrocodone (From VICODIN) Allergy (Unknown, Verified 04/25/25 11:17) HIVES loratadine (From CLARITIN) Allergy (Unknown, Verified 04/25/25 11:17) HTN meperidine (From DEMEROL) Allergy (Unknown, Verified 04/25/25 11:17) UNKNOWN morphine (MORPHINE) Allergy (Unknown, Verified 04/25/25 11:17) UNKNOWN nalbuphine (From NUBAIN) Allergy (Unknown, Verified 04/25/25 11:17) HIVES oxycodone (OXYCODONE) Allergy (Unknown, Verified 04/25/25 11:17) HIVES penicillin V Allergy (Unknown, Verified 04/25/25 11:17) unk Penicillins (PCN) Allergy (Unknown, Verified 04/25/25 11:17) HIVES tramadol (TRAMADOL) Allergy (Unknown, Verified 04/25/25 11:17) NAUSEA & VOMITING vancomycin (VANCOMYCIN) Allergy (Unknown, Verified 04/25/25 11:17) BLISTERS Medication List - Last Reconciled 04/25/25 by Mary Bonner MD ibuprofen 800 mg PO TID ipratropium-albuterol 0.5 mg-3 mg(2.5 mg base)/3 mL 3 mL inhalation QID PRN 30 days HPI Comments Details: Patient is a 59-year-old female with sarcoidosis (2006, lung and erythema nodosum), osteoarthritis involving the hands and the knees, fibromyalgia, here today for follow-up Interval History: Last seen 10/26/24 with me. - Not on any DMARDs - Resolution of nodules - No sx of inflammatory arthritis or pulmonary sx - Complained of right 4th digit pain with movement , consistent with trigger finger - Steroid injection given Today - Not on any DMARDs - No further painful nodules - Complaining of overall increased stiffness involving her feet and hands - Also with right 2nd digit pain with movement Rheumatologic History: Diagnosed with sarcoidosis based on a CT scan of the chest in 2005. Currently follows with pulmonology. About 2-3 years ago she also noted bilateral painful nodules appearing on her feet. Biopsied on (not seen) consistent with erythema nodosum. Established care with Rheumatology at [facility] 08/2021 and evaluation including hand x-rays was consistent with osteoarthritis. She also had widespread pain with tender points consistent with fibromyalgia. Previously tried methotrexate but had side effects Current Rheumatology Medication(s): [facility] Medical History (Updated 06/30/24 @ 12:56 by Mary Bonner MD) Frozen shoulder senior care current use of non-steroidal anti-inflammatories (NSAID) Osteoarthritis of right knee Osteoarthritis of knees, bilateral Surgical History H/O shoulder surgery History of back surgery Hx of tubal ligation Family History Mother Heart attack Diabetes HTN (hypertension) Sister Diabetes Heart attack HTN (hypertension) Social History Household Members: Spouse Household Members Other:: son Housing: House Alcohol intake: never Patient Tobacco Use Status: Never used Tobacco service: No Current occupational status: employed 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 Current occupational exposures/hazards: No Sexual orientation: Straight/Heterosexual Gender identity: Female Review of Systems Const Details: Review of Systems Constitutional: Denies fever, chills, weight loss ENT: Denies vision changes, eye pain or eye redness, dental caries, dry mouth GI: Denies nausea, vomiting, diarrhea, abdominal pain, change in BM Pulm: Denies SOB, [place], hemoptysis, wheezing Cards: Denies chest pain, palpitations Skin: Denies Raynaud's, rash, nail changes, photosensitivity, INTE[employer]ATED MARKETING INTERN: Denies headaches, weakness, paresthesias, recurrent falls MSK: as per HPI All other systems reviewed and are unremarkable except noted above Physical Exam Exam Exam: Vital signs reviewed Physical Examination CONSTITUITIONAL Patient alert and cooperative. HEENT Conjunctiva and sclera clear. No lymphadenopathy. CHEST/RESPIRATORY SYSTEM Normal respiratory effort and able to speak in complete sentences. Clear to auscultation bilaterally. No crackles, rales, rhonchi, wheezes heard. CARDIAC SYSTEM Regular rate and rhythm. S1 and S2 heard no murmurs. Radial pulses intact bilaterally MSK Hands * Right Hand: Able to make a fist. No swelling or tenderness to palpation of the MCPs, PIPs or DIPs. No deformities noted. TTP of the right 2nd A1 shonda with triggering * Left Hand: Able to make a fist. No swelling or tenderness to palpation of the MCPs, PIPs or DIPs. No deformities noted. Wrists * Right Wrist: Full ROM to flexion and extension. No swelling or TTP * Left Wrist: Full ROM to flexion and extension. No swelling or TTP Elbows * Right Elbow: Full ROM. No swelling or TTP. No TTP of the medial epicondyle. No TTP of the lateral epicondyle * Left Elbow: Full ROM. No swelling or TTP. No TTP of the medial epicondyle. No TTP of the lateral epicondyle Shoulders * Right shoulder: Full ROM. No swelling noted. No TTP of the AC joint. No TTP of the subacromial bursa. No TTP of the posterior shoulder * Left shoulder: Full ROM. No swelling noted. No TTP of the AC joint. No TTP of the subacromial bursa. No TTP of the posterior shoulder Knees * Right knee: Full ROM. No swelling noted. No TTP of the knee joint line. No TTP of pes anserine bursa * Left knee: Full ROM. No swelling noted. No TTP of the knee joint line. No TTP of pes anserine bursa. * Crepitations felt bilaterally Ankles * Right ankle: Good ankle dorsiflexion and plantar flexion. No swelling. No TTP of the ankle joint * Left ankle: Good ankle dorsiflexion and plantar flexion. No swelling. No TTP of the ankle joint Feet * Right foot: Negative squeeze test * Left foot: Negative squeeze test Tender points? * No tenderness to palpation of the bilateral trapezius, supraspinatus, anterior costochondral junctions, bilateral suboccipital muscle insertions SKIN No rashes Vital Signs: Last Vital Signs Pulse 70 09/10/25 11:19 BP 134/80 04/25/25 11:19 Pulse Ox 98 04/25/25 11:19 Oxygen Delivery Method Room Air 04/25/25 11:19 BMI result Body Mass Index 27.7 Office Procedures AMB Joint Injection/Aspiration Joint Injection/Aspiration Details: Procedure was explained to the patient and informed consent was obtained. ? Risks associated with the procedure were discussed with the patient including but not limited to bleeding, infection, drug reactions and reactions to the topical anesthetic. Patient made aware of signs to look out for infectious complications. The area of interest was identified and confirmed with patient. ?This was subsequently cleaned with chlorhexidine x 2. ? The area was then anesthetized using ethyl chloride spray. 20 mg Kenalog was injected without issue. ?Minimal to no bleeding. ?Patient tolerated procedure. Primary Site: right trigger finger Prep: site was prepped using aseptic technique and ethochloride spray was applied Injected: 20 mg of and Kenalog Procedure: The patient tolerated the procedure well Coding 32241 - Bicipital Groove Injection Procedure code (CPT) selection complete Office Meds Kenalog 40 mg/mL suspension for injection Performing Provider: Mary Bonner MD Performing Location[place] [facility] Administered by: Renny Brandon RN on 04/25/25 13:13 Dose Route Admin Location Dispensed Lot Number Expiration Date [facility] Public Service Representative 20 mg intra-articular 1 mL [id number] 12/13/25 [address]-6 L [facility] Disp[facility] Waste 1 mL 50 % Results Reviewed Results Reviewed: Laboratory Tests 10/26/24 10:25 WBC 8.0 RBC 4.91 Hgb 13.8 Hct 42.3 Plt Count 256 ESR 20 Sodium 140 Potassium 4.5 Chloride 106 Carbon Dioxide 29 BUN 16 Creatinine 0.84 AST 19 ALT 19 Alkaline Phosphatase 100 C-Reactive Protein 0.16 Angiotensin Convert Enz 25 CT Chest 08/2024 Comparison: None Findings: There are faint reticulonodular opacities at the periphery of the right upper lobe. There are multiple small pulmonary nodules measuring up to 5 mm in size (right middle lobe image 113). There is mild bilateral apical scarring. There is no honeycombing, consolidation or pleural effusion. Normal heart size. No coronary artery calcifications. Unremarkable visualized thyroid gland. No mediastinal or hilar lymphadenopathy. Status post cholecystectomy. No acute abnormality of the visualized abdomen. There are bilateral breast implants. No acute bony abnormality. Impression: 1. Minimal peripheral reticulonodular opacities within the right upper lobe, compatible with scarring. 2. Multiple small pulmonary nodules measuring up to 5 mm in size. Recommend follow-up in 3-6 months. Assessment & Plan Assessment & Plan (1) Sarcoidosis: Code(s): D86.9 - Sarcoidosis, unspecified Category: Medical Plan: #Sarcoidosis Patient is a 59-year-old female with sarcoidosis here today for follow up Complaining of increased stiffness in her hands and feet. No active synovitis on examination however given her increased stiffness and her history of sarcoidosis we will start her on some mild immunosuppression. Previously tried methotrexate but did not tolerated and so we will try hydroxychloroquine Plan - Hydroxychloroquine 300mg daily - RTC 6 months - Labs before visit: CBC, CMP, ESR, CRP, LAI level (2) Flexor tenosynovitis of finger: Code(s): M65.9 - Synovitis and tenosynovitis, unspecified Category: Medical Plan: #Flexor tenosynovitis of the 2nd digit of the right hand status post steroid injection today Plan I spent 30 minutes reviewing the record and labs, seeing the patient, discussing the treatment plan and documenting in the medical record ? Orders: Orders Angiotensin Converting Enzyme 4 Months D86.9 - Sarcoidosis, unspecified Complete Blood Count Auto Diff 4 Months D86.9 - Sarcoidosis, unspecified Comprehensive Met. Panel 4 Months D86.9 - Sarcoidosis, unspecified C Reactive Protein 4 Months D86.9 - Sarcoidosis, unspecified Erythrocyte Sedimentation Rate 4 Months D86.9 - Sarcoidosis, unspecified AMB Joint Injection/Aspiration Today M65.30 - Trigger finger, unspecified finger Medications: New hydroxychloroquine (Sovuna) 300 mg PO DAILY 90 tabs 1RF D86.9 - Sarcoidosis, unspecified Coding Level of Care Code Est Pt Level 3 (36648) Complex EM visit Add On G2211 Diagnoses Sarcoidosis D86.9 Flexor tenosynovitis of finger M65.9 CPT Codes Coding - Joint 1: 49883 - Bicipital Groove Injection ([id number])
[2025-04-25 11:19] VITALS: BP 134/80; PULSE 70; O2SAT 98; BMI 27.7
--- OUTSIDE RECORDS SUMMARY | 2025-04-25 14:06 | XMS_ITS | Encounter Summary ---
Author Organization [facility] Address [address] [place] [address] [place] [phone] Phone Care Team Providers Care Hospital Director Name Role Phone Rajwinder Owen Primary Care Provider Rajwinder Owen Unavailable Tito Mayer MD Unavailable [email or web address] Mary Jo Yates GAME TRAPPER Unavailable Rajwinder Amato GAME TRAPPER Unavailable Reinaldo Hernandez MD Unavailable Maryan Garcia GAME TRAPPER Unavailable [phone] Doris Rose NP Unavailable Dolores Mattson MD Unavailable Yan Bishop MD Unavailable Irina Bedolla GAME TRAPPER Unavailable [phone] Graciela Zamarripa MD Unavailable Jamie Winslow MD Unavailable Goran High MD Unavailable Lucila Lynne RDCS Unavailable [email or web address] Trey Guillory MD Unavailable Anuradha Kaplan MD Unavailable Jessica Soler NP Primary Care Provider Melvin Kovacs MD Primary Care Provider + Encounter Details Date Type Department Care Team (Late st Contact Info) Description 12/07/2017 Ancillary Orders [address] DO [address] [place] [address] Orthopedics & Sports Medicine, [facility] [place] [address] [email or web address] Left shoulder pain, unspecified chronicity Social History Tobacco Use Types Packs/Day Years Used Date Smoking Tobacco: Former Smokeless Tobacco: Never Alcohol Use Standard Drinks/Week Comments No 0 (1 standard drink = 0.6 oz pur e alcohol) Comments No Sex and Gender Information Value Date Recorded Sex Assigned at Female 09/12/2017 1:33 PM EST Legal Sex Female 6:51 PM EST Gender Identity Female 09/12/2017 1:33 PM EST Sexual Orientation Straight 09/12/2017 1: 33 PM EST documented as of this encounter Plan of Treatment Pending Results Name Type Priority Associated Diagnoses Date /Time FL Guidance Needle Placement Non-Spine Imaging Routine Left shoulder pain, unspecified chronicity 12/08/2017 9:03 AM EDT Scheduled Orders Name Type Priority Associated Diagnoses Orde r Schedule FL Guidance Needle Placement Non-Spine Imaging Routine Left shoulder pain, unspecified chronicity Expected: 12/07/2017, Expires: 12/07/2018 documented as of this encounter Visit Diagnoses Diagnosis Left shoulder pain, unspecified chronicity documented in this encounter Care Teams Hospital Director Relationship Specialty Start Date End Date Rajwinder Owen PA [address] [place] [address] [facility] [address] [place] [address] PCP - General Unknown Provider Specialty 03/11/15 01/20/18 Jessica Soler, GAME TRAPPER [address] [facility] [address] [place] [address] PCP - General Family Medicine 01/21/18 08/11/20 Melvin Kovacs MD [address] [place] [address] PCP - General Family Medicine 08/12/20 Rajwinder Owen PA [address] [place] [address] Historical LMR Provider 06/05/17 Tito Mayer MD [email or web address] Historical LMR Provider 06/05/17 Mary Jo Yates NP [address] [place] [address] Historical LMR Provider 06/05/17 2 Rajwinder Amato NP [address] [place] [address] Historical LMR Provider 06/05/17 2 Reinaldo Hernandez MD [address] [address] [email or web address] Historical LMR Provider 06/05/17 08/23/21 Maryan Garcia NP [address] [place] [address] [email or web address] Historical LMR Provider 06/05/17 08/23/21 Doris Rose NP [address] [place] [phone] Historical LMR Provider 06/05/17 2 Dolores Mattson MD [address] [place] [address], [address] [place] [address] Historical LMR Provider 06/05/17 Yan Bishop MD [address] [address] Historical LMR Provider 06/05/17 08/23/21 Irina Bedolla, ARLET [address] [place] [address] Historical LMR Provider 06/05/17 2 Graciela Zamarripa MD [address] [place] [address] Historical LMR Provider 06/05/17 08/23/21 Jamie Winslow MD [address] [place] [address] Historical LMR Provider 06/05/17 Goran High MD [address] [place] [phone] Historical LMR Provider 06/05/17 2 Lucila Lynne, RDCS Historical LMR Provider 06/05/17 08/23/21 Trey Guillory MD [address] [place] [phone] Historical LMR Provider 06/05/17 2 Anuradha Kaplan MD [address] [place] [address] [email or web address] Historical LMR Provider 06/05/17 08/23/21 documented as of this encounter Additional Source Comments The information contained in this document represents components of the legal health record. It is not the complete legal health record.[facility]
--- OUTSIDE RECORDS SUMMARY | 2025-04-25 14:06 | XMS_ITS | Encounter Summary ---
Author Organization [facility] Address [address] [place] [address] [place] [address] Phone Care Team Providers Care Nursing Project Coordinator Name Role Phone Rajwinder Owen Unavailable Tito Mayer MD Unavailable [email or web address] Mary Jo Yates SAP BASIS CONSULTANT Unavailable Rajwinder Amato SAP BASIS CONSULTANT Unavailable Reinaldo Hernandez MD Unavailable Maryan Garcia SAP BASIS CONSULTANT Unavailable [phone] Doris Rose NP Unavailable Dolores Mattson MD Unavailable Yan Bishop MD Unavailable Irina Bedolla SAP BASIS CONSULTANT Unavailable Graciela Zamarripa MD Unavailable Jamie Winslow MD Unavailable Goran High MD Unavailable Lucila Lynne RDCS Unavailable [email or web address] Trey Guillory MD Unavailable Anuradha Kaplan MD Unavailable Jessica Soler SAP BASIS CONSULTANT Primary Care Provider Melvin Kovacs MD Primary Care Provider + Encounter Details Date Type Department Care Team (Late st Contact Info) Description 01/21/2018 Procedure Pass [facility] Endoscopy Admitting Dept Virtual Department [address] [place] [address] Social History Tobacco Use Types Packs/Day Years [...] as of this encounter Plan of Treatment Not on file documented as of this encounter Visit Diagnoses Not on filedocumented in this encounter Care Teams Nursing Project Coordinator Relationship Specialty Start Date End Date Jessica Soler SAP BASIS CONSULTANT [address] [place] [address] PCP - General Family Medicine 01/21/18 08/11/20 Melvin Kovacs MD [address] [place] [address] PCP - General Family Medicine 08/12/20 Rajwinder Owen PA [address] [place] [address] Historical LMR Provider 06/05/17 Tito Mayer MD [email or web address] Historical LMR Provider 06/05/17 Mary Jo Yates NP [address] [place] [address] Historical LMR Provider 06/05/17 2 Rajwinder Amato SAP BASIS CONSULTANT [address] [place] [address] Historical LMR Provider 06/05/17 2 Reinaldo Hernandez MD [address] [address] Historical LMR Provider 06/05/17 08/23/21 Maryan Garcia NP [address] [place] [address] Historical LMR Provider 06/05/17 08/23/21 Doris Rose NP [address] [place] [phone] Historical LMR Provider 06/05/17 2 Dolores Mattson MD [address] [address] Historical LMR Provider 06/05/17 Yan Bishop MD [address] [address] Historical LMR Provider 06/05/17 08/23/21 Irina Bedolla NP [address] [place] [address] Historical LMR Provider 06/05/17 2 Graciela Zamarripa MD [address] [place] [address] Historical LMR Provider 06/05/17 08/23/21 Jamie Winslow MD 22 [facility] [address] [place] [address] Historical LMR Provider 06/05/17 Goran High MD [address] [place] [address] 7 [place] [address] Historical LMR Provider 06/05/17 2 Lucila Lynne, [facility] Historical LMR Provider 06/05/17 08/23/21 Trey Guillory MD [address] [place] [phone] Historical LMR Provider 06/05/17 2 Anuradha Kaplan MD [address] [place] [address] [address] [place] [address] [email or web address] Historical LMR Provider 06/05/17 08/23/21 documented as of this encounter Additional Source Comments The information contained in this document represents components of the legal health record. It is not the complete legal health record.[facility]
--- OUTSIDE RECORDS SUMMARY | 2025-04-25 14:06 | XMS_ITS | Encounter Summary ---
Author Organization [facility] Address [address] [place] [address] [place] [address] Phone Care Team Providers Care Graphic Technician Name Role Phone Rajwinder Owen Primary Care Provider Rajwinder Owen Unavailable Tito Mayer MD Unavailable [email or web address] Mary Jo Yates MANDARIN CHINESE TEACHER Unavailable Rajwinder Amato MANDARIN CHINESE TEACHER Unavailable Reinaldo Hernandez MD Unavailable Maryan Garcia MANDARIN CHINESE TEACHER Unavailable Doris Rose NP Unavailable Dolores Mattson MD Unavailable Yan Bishop MD Unavailable Irina Bedolla MANDARIN CHINESE TEACHER Unavailable Graciela Zamarripa MD Unavailable Jamie Winslow MD Unavailable Goran High MD Unavailable Lucila Lynne RDCS Unavailable [email or web address] Trey Guillory MD Unavailable Anuradha Kaplan MD Unavailable Jessica Soler NP Primary Care Provider Melvin Kovacs MD Primary Care Provider + Encounter Details Date Type Department Care Team (Late st Contact Info) Description 12/07/2017 Ancillary Orders [facility] Orthopedics & Sports Medicine [address] [place] [address] DO [address] [place] [address] Orthopedics & Sports Medicine, [facility] [place] [address] [email or web address] Social History Tobacco Use Types Packs/Day Years [...] on filedocumented in this encounter Care Teams Graphic Technician Relationship Specialty Start Date End Date Rajwinder Owen PA [address] [place] [address] [address] [place] [address] PCP - General Unknown Provider Specialty 03/11/15 01/20/18 Jessica Soler, ARLET [address] [place] [address] PCP - General Family Medicine 01/21/18 08/11/20 Melvin Kovacs MD [address] [place] [address] PCP - General Family Medicine 08/12/20 Rajwinder Owen PA [address] [place] [address] Dr [address] [place] [address] Historical LMR Provider 06/05/17 Tito Mayer MD [email or web address] Historical LMR Provider 06/05/17 Mary Jo Yates NP [address] [place] [address] Historical LMR Provider 06/05/17 2 Rajwinder Amato NP [address] [place] [address] Historical LMR Provider 06/05/17 2 Reinaldo Hernandez MD [address] [place] [address] [email or web address] Historical LMR Provider 06/05/17 08/23/21 Maryan Garcia NP [address] [place] [address] [email or web address] Historical LMR Provider 06/05/17 08/23/21 Doris Rose MANDARIN CHINESE TEACHER [address] [place] [phone] Historical LMR Provider 06/05/17 2 Dolores Mattson MD [address] [address] Historical LMR Provider 06/05/17 Yan Bishop MD [address] [address] Historical LMR Provider 06/05/17 08/23/21 Irina Bedolla NP [address] [place] [address] Historical LMR Provider 06/05/17 2 Graciela Zamarripa MD [address] [place] [address] Historical LMR Provider 06/05/17 08/23/21 Jamie Winslow MD [address] [place] [address] Historical LMR Provider 06/05/17 Goran High MD [address] [place] [phone] Historical LMR Provider 06/05/17 2 Lucila Lynne, [facility] Historical LMR Provider 06/05/17 08/23/21 Trey Guillory MD [address] [place] [phone] Historical LMR Provider 06/05/17 2 Anuradha Kaplan MD [address] [place] [address] [email or web address] Historical LMR Provider 06/05/17 08/23/21 documented as of this encounter Additional Source Comments The information contained in this document represents components of the legal health record. It is not the complete legal health record.[facility]
--- OUTSIDE RECORDS SUMMARY | 2025-04-25 14:06 | XMS_ITS | Encounter Summary ---
Author Organization [facility] Address [address] [place] [address] [place] [id number] Phone Care Team Providers Care Couture Alterations Dressmaker Name Role Phone Rajwinder Owen Unavailable Tito Mayer MD Unavailable [email or web address] Mary Jo Yates CRANBERRY GROWER Unavailable [phone] Rajwinder Amato CRANBERRY GROWER Unavailable Reinaldo Hernandez MD Unavailable Maryan Garcia CRANBERRY GROWER Unavailable Doris Rose NP Unavailable Dolores Mattson MD Unavailable Yan Bishop MD Unavailable [phone] Irina Bedolla CRANBERRY GROWER Unavailable [phone] Graciela Zamarripa MD Unavailable Jamie Winslow MD Unavailable Goran High MD Unavailable Lucila Lynne RDCS Unavailable [email or web address] Trey Guillory MD Unavailable [phone] Anuradha Kaplan MD Unavailable Jessica Soler CRANBERRY GROWER Primary Care Provider [phone] Melvin Kovacs MD Primary Care Provider + Encounter Details Date Type Department Care Team (Late st Contact Info) Description 05/03/2018 Ancillary Orders [facility] Orthopedics & Sports Medicine [address] [place] [phone] DO [address] [place] [address] Orthopedics & Sports Medicine, [facility] [place] [address] [email or web address] Social History Tobacco Use Types Packs/Day Years [...] on filedocumented in this encounter Care Teams Couture Alterations Dressmaker Relationship Specialty Start Date End Date Jessica Soler NP [address] [address] PCP - General Family Medicine 01/21/18 08/11/20 Melvin Kovacs MD [address] [place] [phone] PCP - General Family Medicine 08/12/20 Rajwinder Owen PA [address] [place] [phone] Historical LMR Provider 06/05/17 Tito Mayer MD [email or web address] Historical LMR Provider 06/05/17 Mary Jo Yates NP [address] [place] [address] [address] [place] [address] Historical LMR Provider 06/05/17 2 Rajwinder Amato NP 30 [place] [address] Historical LMR Provider 06/05/17 2 Reinaldo Hernandez MD [address] [phone] Historical LMR Provider 06/05/17 08/23/21 Maryan Garcia NP [address] [place] [phone] [email or web address] Historical LMR Provider 06/05/17 08/23/21 Doris Rose NP [facility]5 [place] [phone] Historical LMR Provider 06/05/17 2 Dolores Mattson MD [address] [place] [address] Historical LMR Provider 06/05/17 Yan Bishop MD [address] [address] Historical LMR Provider 06/05/17 08/23/21 Irina Bedolla NP [address] [place] [address] Historical LMR Provider 06/05/17 2 Graciela Zamraripa MD 234 [facility] 7 [place] [address] Historical LMR Provider 06/05/17 08/23/21 Jamie Winslow MD 22 [facility] 102 [place] [address] Historical LMR Provider 06/05/17 Goran High MD 236 [facility] 7 [place] [phone] Historical LMR Provider 06/05/17 2 Lucila Lynne, CS Historical LMR Provider 06/05/17 08/23/21 Trey Guillory MD [address] [place] [phone] Historical LMR Provider 06/05/17 2 Anuradha Kaplan MD [address] [address] Historical LMR Provider 06/05/17 08/23/21 documented as of this encounter Additional Source Comments The information contained in this document represents components of the legal health record. It is not the complete legal health record.[facility]
--- OUTSIDE RECORDS SUMMARY | 2025-04-25 14:06 | XMS_ITS | Clinical Summary ---
Author Organization [facility] Address [address] [address] Phone Care Team Providers Care Four H Agent Name Role Phone Tito Mayer MD Unavailable [email or web address] Jamie Winslow MD Unavailable Melvin Kovacs MD Primary Care Provider + Allergies Active Allergy Reactions Criticality Noted Date Comments Bee Pollen 04/23/2022 Other reaction(s): difficulty breathing Clarithromycin 04/23/2022 Other reaction(s): hives and vomiting Salgado Serafin syndrome Loratadine Palpitations Low 09/09/2017 Clindamycin 04/23/2022 Other reaction(s): hives and vomiting rash rash Codeine 04/23/2022 Other reaction(s): vomiting and hives n/v Demerol (Meperidine) Mental Status Change 05/02 Gadolinium-Containing Contrast Media 04/23/2022 Other reaction(s): ringing in ears, jaw pain and red hives Erythromycin 01/21/2018 Fish 04/23/2022 Other reaction(s): swelling of throat, eyes, difficulty breathing Fluconazole 04/23/2022 Other reaction(s): severe hives Hydrocodone-Acetaminoph en 04/23/2022 Other reaction(s): nausea and vomiting Influenza Virus Vaccines 04/23/2022 Other reaction(s): can't take because of sarcoidosis Latex 04/23/2022 Other reaction(s): redness/blisters in area latex touches fish derived allergy--rash Loratadine-Pseudoephedr ine 04/23/2022 Other reaction(s): high blood pressure high bp and tachycardia high bp and tachycardia Meperidine 04/23/2022 Other reaction(s): asleep for two days , N&V severe sedation Morphine Rash Low 05/02/2015 Nalbuphine 01/21/2018 Penicillins Hives 05/02/2015 Propoxyphene 04/23/2022 Other reaction(s): vomiting and hives hives hives Tramadol Nausea and/or Vomiting 09/09/2017 Oxycodone-Acetaminophen 01/21/2018 Vancomycin 05/02/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 1 Active ibuprofen (ADVIL,MOTRIN) 800 MG tablet Take 800 mg by mouth 3 (three) times a day as needed. 2 Active albuterol 90 mcg/actuation inhaler Inhale 2 puffs into the lungs every 6 (six) hours as needed for wheezing. Active clonazePAM (KLONOPIN) 0.5 MG tablet Take 0.5 mg by mouth 2 (two) times a day as needed. 4 Active cholecalciferol (VITAMIN D3) 5,000 unit capsuleIndicatio ns:Vitamin D deficiency, unspecified Take 1 capsule (5,000 Units total) by mouth daily. 90 capsule 1 4 Active Additional Information Patient not taking.Reported on 09/11/2024 triamcinolone acetonide 0.1 % ointment Apply topically 2 (two) times a day for 14 days. 80 g 5 Active estradioL (ESTRACE) 0.01 % (0.1 mg/gram) vaginal cream Place 1 gram nightly in vagina for 7 nights and then 1 gram twice weekly afterwards 42.5 g 3 5 Active Active Problems Problem Noted Date Diagnosed Date Genitourinary syndrome of menopause 09/11/2024 Assessment & Plan (09/11/2024 4:52 PM EST): Patient with significant vaginal atrophy noted on exam Nuswab collected Recommend vaginal estrogen for management of atrophy symptoms, patient agrees to plan of care, rx sent to pharmacy Patient with some contact irritation at folds between thigh/labia, rx for twice daily application of triamcinolone ointment x 2 weeks sent to pharmacy Plan follow up in 6 weeks or sooner as needed Chronic right-sided low back pain with right-dulce ed sciatica 02/26/2023 Assessment & Plan (11/11/2023 12:33 PM EDT): She is scheduled for follow-up with orthopedic surgeon=Dr Bailey on 11/16/2023 who is offering her surgical procedure requiring titanium plate insertion and she is leaning toward it due to worsening and persistent pain in her lower back radiating to the RLE. Assessment & Plan (02/26/2023 3:37 PM EDT): Procedure: After an informed oral consent, under sterile conditions using Ethyl chloride spray for local anesthesia I have injected 60 mg Kenalog and 2 cc 1% Lidocaine into Right outer upper buttock uneventfully. Details of post-procedure care were explained to the patient in the office and given in writing. Provider: Macarena Peña MD Patient: Nicolette Mcguire : 1965 Date: 02/26/2023 Meningioma 02/26/2023 Assessment & Plan (02/26/2023 3:57 PM EDT): Nicolette reports that she was found with brain meningioma in 2020 and is following with [facility] neurologist every 6 months because initial size was around 6 mm and the follow-up imaging revealed enlargement to 7 mm per her report. She remains asymptomatic. Trigger index finger of right hand 08/28/2022 Assessment & Plan (08/30/2022 7:33 PM EST): Gentle massage with baby oil or moisturizer along right index finger flexor tendon starting from proximal crease toward distal end. If not better or worse may need to consider local steroid injection into the flexor tendon sheath. NSAID long-term use 12/31/2021 Assessment & Plan (11/11/2023 10:28 AM EDT): Take the lowest dose, with least frequency, for shortest time. Remember to take it always with food. Favor topical over oral preparations. Assessment & Plan (02/26/2023 3:20 PM EDT): Take the lowest dose, with least frequency, for shortest time. Remember to take it always with food. Favor topical over oral preparations. Assessment & Plan (08/28/2022 2:13 PM EST): Take the lowest dose, with least frequency, for shortest time. Remember to take it always with food. Favor topical over oral preparations. Assessment & Plan (12/31/2021 10:58 AM EDT): Take the lowest dose, with least frequency, for shortest time. Remember to take it always with food. Favor topical over oral preparations. Pain in both hands 12/31/2021 Assessment & Plan (01/18/2022 11:52 AM EDT): Due to diffuse pain throughout the hands & throughout the body I agreed to inject long-acting steroid that used to work well for her in the past. Procedure: After an informed oral consent, under sterile conditions using Ethyl chloride spray for local anesthesia I have injected intra -muscularly 60 mg DepoMedrol and 1.5 cc 1% Lidocaine into Left buttock outer upper quadrant uneventfully. Details of post-procedure care were explained to the patient in the office and given in writing. Provider: Macarena Peña MD Patient: Nicolette Mcguire : 1965 Date: 12/31/2021 Pain in both wrists 09/24/2021 Assessment & Plan (09/24/2021 1:40 PM EST): Due to bilateral wrist pain and her [...] writing. Provider: Macarena Peña MD Patient: Nicolette Mcguire : 1965 Date: 09/24/2021 Trigger little finger of right hand 09/24/2021 Assessment & Plan (08/30/2022 7:34 PM EST): Gentle massage with baby oil or moisturizer along this right 5th flexor tendon starting from proximal crease toward distal end. If not better or worse may need to consider local steroid injection into the flexor tendon sheath. Assessment & Plan (12/31/2021 10:58 AM EDT): Gentle massage with baby oil or moisturizer along this right finger flexor tendon starting from proximal crease toward distal end. If not better or worse may need to consider local steroid injection into the flexor tendon sheath. Assessment & Plan (09/24/2021 1:38 PM EST): Gentle massage with baby oil or moisturizer along this right finger flexor tendon starting from proximal crease toward distal end. If not better or worse may need to consider local steroid injection into the flexor tendon sheath. Postmenopausal bleeding 02/01/2019 Overview (02/01/2019): Normal SHG, neg endometrial bx; some apparent scarring or adhesion JERILYN s/p 6 sections Assessment & Plan (02/01/2019 1:58 PM EDT): No need for further action, call prn ongoing bleeding Right knee pain 09/20/2018 Assessment & Plan (03/05/2021 8:41 AM EDT): Acute flareup of medial compartment and patellofemoral osteoarthritis will be treated in the right knee with intra-articular corticosteroid injection today, relative rest, continuance of 800 mg of ibuprofen twice daily as needed. Assessment & Plan (09/20/2018 12:43 PM EST): I think this is posttraumatic in nature and she may have an iliotibial band syndrome as well as an exacerbation of her patellofemoral disorder. No signs of ligamental laxity or internal derangement. Physical therapy should be of great benefit here. Vaginal yeast infection 09/05/2018 Weight loss 04/26/2018 Assessment & Plan (04/26/2018 12:30 PM EDT): The patient says she has lost 19 lbs because of RUQ abdominal pain that is particularly very sharp after eating. Inflammatory arthritis 04/26/2018 Assessment & Plan (11/11/2023 12:31 PM EDT): Currently no active synovitis on exam and no episodes of her red, hot or swollen joints persisting beyond 1 week. If symptoms persist over 1-2-weeks and return frequently get the new set of lab work and let me know-orders in epic. Joint protection, energy conservation. Gentle, regular exercise routine. Avoid falls, injuries, overuse. Keep body weight in ideal range for her height. She may benefit from topical cream such as Arnica, Biofreeze, Aspercreme versus medicated patches such as salonpas, icy hot patch 2-3 times daily and if necessary at bedtime x 3 weeks. Assessment & Plan (02/26/2023 3:56 PM EDT): Currently no active synovitis on exam and no episodes of her red, hot or swollen joints. Joint protection, energy conservation. Gentle, regular exercise routine. Avoid falls, injuries, overuse. Keep body weight in ideal range for her height. She may benefit from topical cream such as Arnica, Biofreeze, Aspercreme versus medicated patches such as salonpas, icy hot patch 2-3 times daily and if necessary at bedtime x 3 weeks. Assessment & Plan (08/28/2022 2:17 PM EST): Procedure: After an informed oral consent, under sterile conditions using Ethyl chloride spray for local anesthesia I have injected 60 mg DepoMedrol into Left buttock outer quadrant uneventfully. Details of post-procedure care were explained to the patient in the office and given in writing. Provider: Macarena Peña MD Patient: Nicolette Mcguire : 1965 Date: 08/28/2022 Assessment & Plan (09/20/2018 12:42 PM EST): Plain exam today showed no evidence of inflammatory arthropathy or enthesopathy. Of interest is her rheumatoid factor was negative, CCP antibody is negative and HLA-B27 is not there. Assessment & Plan (07/19/2018 1:06 PM EST): The patient's arthritis may affect the presenting issue of surgical procedure (s) and may increase the risk of slow healing wound (s), infection (s), kidney, lung and/or heart problems. Stable and/or controlled chronic conditions may reduce complications associated with your chronic condition (s). Assessment & Plan (04/26/2018 12:31 PM EDT): The patient's inflammatory arthritis may affect the presenting issue of surgical procedure (s) and may increase the risk of slow healing wound (s), infection (s), kidney, lung and/or heart problems. Stable and/or controlled chronic conditions may reduce complications associated with your chronic condition (s). The patient sees Dr. Mayer for rheumatology and is on Mobic and Cymbalta. Depression 04/26/2018 Assessment & Plan (07/19/2018 1:05 PM EST): The patient's depression may affect the presenting problem of surgical procedure (s) and may increase the risk of slow healing wound (s), infection (s) and the need to assure stability to optimize decisions and wound care. Stable and/or controlled chronic conditions may reduce complications associated with your chronic condition (s). Assessment & Plan (04/26/2018 12:34 PM EDT): The patient's depression may affect the presenting problem of surgical procedure (s) and may increase the risk of slow healing wound (s), infection (s) and the need to assure stability to optimize decisions and wound care. Stable and/or controlled chronic conditions may reduce complications associated with your chronic condition (s). RUQ abdominal pain 04/26/2018 Assessment & Plan (07/19/2018 1:03 PM EST): The patient has had a deep, sharp, [...] understands these risks and wishes to proceed. Assessment & Plan (04/26/2018 12:47 PM EDT): This patient states she has had right upper quadrant pain present since December of this year. She is status post cholecystectomy. She has already had an extensive workup with no findings, however, a CT scan done in December of this year showed findings suggestive of colitis of the splenic flexure and transverse colon. We discussed the possibility of scar tissue which I would not recommend surgery for as that would only create more scar tissue. She has seen Dr. Chester of GI for upper and lower endoscopies and I will speak to him regarding this patient. Fibromyalgia 10/06/2017 Assessment & Plan (11/11/2023 10:27 AM EDT): We discussed the diagnosis of fibromyalgia, its [...] Acevedo Managing pain before it manages you Assessment & Plan (02/26/2023 3:22 PM EDT): We discussed the diagnosis of fibromyalgia, its [...] living addressing management strategies by mindfulness approach. Assessment & Plan (08/28/2022 2:13 PM EST): We discussed the diagnosis of fibromyalgia, its [...] living addressing management strategies by mindfulness approach. Assessment & Plan (12/31/2021 10:58 AM EDT): We discussed the diagnosis of fibromyalgia, its [...] in the book written by Dr Tito Navarro catastrophe living addressing management strategies by mindfulness approach. Assessment & Plan (09/24/2021 1:40 PM EST): We discussed the diagnosis of fibromyalgia, its [...] living addressing management strategies by mindfulness approach. Assessment & Plan (08/25/2021 12:07 AM EST): Carries diagnosis of FM Last visit she received an IM injection of corticosteroids for her FM flare I had long discussion today with pt regarding Diagnosis pf FM and appropriate treatment FM is not an inflammatory condition and therefore I believe steroids are not appropriate tx in the management for FM. Treatment includes obtaining restful sleep, controlling mood disorder and exericing on a regualar basis. Some pharmacological treatments can be helpful including medications for mood such as muscle relaxants BUT THERE IS NO EVIDENCE THAT STEROIDS ARE EFFECTIVE IN TREATMENT FOR FM. Pt was encouraged to seek opinion of another manager universal to get their opinion regarding IM injections of steroids to tx FM I recommended continued daily exercise for pt Assessment & Plan (03/31/2021 11:48 AM EDT): Patient is having a total body flare of fibromyalgia. She will receive an intramuscular corticosteroid injection today. Well fitting supportive shoes with good shock absorption, weight control, low inflammatory diet, good sleep hygiene and follow-up with new physician in 3 months. Assessment & Plan (11/11/2020 11:00 AM EDT): Diffuse flare of fibromyalgia with poor sleep, multiple tender points, absence of inflammatory arthropathy is suggestive but not diagnostic of fibromyalgia. In this regard she will receive a 2 cc 80 mg Depo-Medrol injection today and she will start 750 mg of Robaxin 3 times daily and 800 mg of ibuprofen 3 times daily as needed. Further work-up will include complement levels, autoantibodies and angiotensin-converting enzyme level given her history of sarcoidosis. She may continue to use the triamcinolone cream as needed. Previous lab work was reviewed. 50% of this visit was spent in [id number] conversation with the patient and a total of 30 minutes was spent during this visit in consultation. No visits with results within 3 Month(s) from this visit. Latest known visit with results is: Hospital Outpatient Visit on 01/24/2019 Component Date Value Ref Range Status TSH 01/24/2019 1.35 0.27 - 4.20 uIU/mL Final PROLACTIN 01/24/2019 36.7* 4.8 - 23.3 ng/mL Final Macroprolactin 01/24/2019 24* 60 - 100 % Final Comment: Interpretation: Greater than 60%: Negative for macroprolactin (Sample contains mostly biologically active monomeric prolactin) Between 40-60%: Brown zone (Sample contains both monomeric and macroprolactin) Less than 40%: Positive for macroprolactin (Indicating an elevated prolactin may be spurious) Assessment & Plan (08/12/2020 2:59 PM EST): Active and flaring painful fibromyalgia in a patient with basilar thumb and first MCP osteoarthritis, patellofemoral disorder, history of rotator cuff tendinitis now quiet, and a more distant history of pulmonary sarcoid. She will continue current medications. She will receive an intramuscular corticosteroid injection today risks and benefits were discussed. This has helped her before and usually gives her about 3 to 4 months of relief. Assessment & Plan (07/19/2018 1:05 PM EST): The patient's fibromyalgia may affect the presenting issue of surgical procedure (s) and may increase the risk of slow healing wound (s), infection (s), kidney, lung and/or heart problems. Stable and/or controlled chronic conditions may reduce complications associated with your chronic condition (s). Assessment & Plan (05/31/2018 10:14 AM EDT): Multiple tender points over musculotendinous junctions, poor sleep, morning stiffness, chronic fatigue no synovitis on exam is strongly suggestive of active fibromyalgia. We discussed medications, meloxicam and Cymbalta. She does not feel that the meloxicam is helping so she will stop it. She may use ibuprofen as needed. We talked about risks and benefits of Cymbalta and advised her to take it at nighttime and to stay on 30 mg daily for the next 6 weeks. She is not to stop the medication suddenly for fear of withdrawal symptoms. Assessment & Plan (04/26/2018 12:31 PM EDT): The patient's fibromyalgia may affect the presenting issue of surgical procedure (s) and may increase the risk of slow healing wound (s), infection (s), kidney, lung and/or heart problems. Stable and/or controlled chronic conditions may reduce complications associated with your chronic condition (s). The patient sees Dr. Mayer for rheumatology. Assessment & Plan (04/20/2018 2:54 PM EDT): Generalized myalgias and arthralgias without synovitis, significant nighttime pain and supervisor fitting stiffness with absence of elevation of acute phase reactants and rheumatoid serologies and tender points over musculotendinous junctions are all suggestive of active fibromyalgia. After full discussion of risks and benefits she will continue on vitamin D, she will start Cymbalta at 30 mg daily and Mobic at 7.5 mg daily. Risks and benefits were discussed. All of her questions were answered. Greater than 50% of this 28 minute visit was spent in [id number] conversation going over the natural history and treatment of both osteoarthritis and fibromyalgia. As a discussed the very real possibility that her presumptive diagnosis of sarcoid while indeed real is not active at the present time. There is no evidence of lung disease or inflammatory arthritis or BREWING DIRECTOR involvement. Lab work will be checked today including acute phase reactants and angiotensin-converting enzyme level and I will get back to her by phone call. Assessment & Plan (01/31/2018 2:55 PM EDT): Worsening discomfort throughout the body with generalized fatigue, myalgias, arthralgias, and morning stiffness. She will receive a 2 mL (80 mg) injection intramuscularly of Depo-Medrol today. Assessment & Plan (10/06/2017 2:32 PM EST): She is feeling worse. She is feeling more depressed. She is having some hair loss and sweats and I believe this is also secondary to her perimenopausal status. Her rotator cuff tendinitis has improved. 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 We spent greater than 50% of this 30 minute visit going over the need for going back on a regular cardiovascular exercise and strengthening program at the gym. We also discussed depression in detail. There is no suicidal ideation. After full discussion was some benefit she will start on 10 mg of Lexapro a day. She will also start vitamin D3 at 2000 units a day. She will continue on ibuprofen no more than 600 mg 3 times daily as needed. Risks and benefits were discussed with her. Moderate episode of recurrent major depressive d isorder 10/06/2017 Herpes 09/09/2017 Assessment & Plan (09/09/2017 6:34 PM EST): rec acyclovir, smaller tabs more f dosing Prefers to avoid daily suppression, has 4? Per year Adhesive capsulitis of left shoulder 08/10/2017 Assessment & Plan (04/20/2018 2:53 PM EDT): Discussed left shoulder pain and adhesive capsulitis. She will continue to do range of motion exercises and go for an intra-articular cortisone injection by the orthopedic surgeon next month. Assessment & Plan (01/31/2018 2:54 PM EDT): Stable with no worsening. She understands the rationale behind range of motion, pendulum, and wall walking motion exercises to maintain and possibly extending range of motion during adhesive capsulitis. Assessment & Plan (08/10/2017 2:49 PM EST): Patient has adhesive capsulitis of the left shoulder which will be treated by intra-articular fluoroscopically guided corticosteroid injection tomorrow followed by physical therapy. We talked about the natural history of this and went over the MRI scan in detail. The MRI showed mild regional degenerative changes with some minor rotator cuff tendinopathy but no rotator cuff or labral tear was seen. There was some minor thickening near portions of the anterior band of the inferior glenohumeral ligament. Left shoulder pain 07/26/2017 Chronic right upper quadrant pain 08/16/1994 Overview (04/26/2018): [address] Pride; RUQ pain since age 17; chronic RUQ pain Assessment & Plan (05/31/2018 10:15 AM EDT): This has been tentatively diagnosed as compression [...] of this 28-minute visit was spent in [id number] conversation with the patient going over the natural history and treatment of median arcuate ligament syndrome and its role in perpetuation of her chronic painful fibromyalgia syndrome. We also went over the risks and benefits of continued use of Cymbalta. All of her questions were answered. Asthma Assessment & Plan (07/19/2018 1:05 PM EST): The patient's asthma may affect the presenting issue of surgical procedure (s) and may increase the risk of slow healing wound (s), infection (s), kidney, lung and/or heart problems. Stable and/or controlled chronic conditions may reduce complications associated with your chronic condition (s). Sarcoidosis Assessment & Plan (11/11/2023 10:27 AM EDT): Hx of pulmonary Sarcoidosis followed by a dental ceramist assistant in [place] There is no synovitis of today's exam Last labs done in 11/03 & 09/06 were normal including LAI level and inflammatory markers Pt encouraged to continue close follow up with her pulmoniologist as scheduled in March 2023. Assessment & Plan (02/26/2023 3:58 PM EDT): Hx of pulmonary Sarcoidosis followed by a dental ceramist assistant in [place] There is no synovitis of today's exam Last labs done in 11/03 & 09/06 were normal including LAI level and inflammatory markers Pt encouraged to continue close follow up with her pulmoniologist as scheduled in March 2023. Assessment & Plan (08/28/2022 2:16 PM EST): Hx of pulmonary Sarcoidosis followed by a dental ceramist assistant in [place] There is no synovitis of today's exam Last labs done in 11/03 & 09/06 were normal including LAI level and inflammatory markers Pt encouraged to continue close follow up with her pulmoniologist Assessment & Plan (01/18/2022 11:56 AM EDT): Hx of pulmonary Sarcoidosis followed by a dental ceramist assistant in [place] There is no synovitis of today's exam Last labs done in 11/03 & 09/06 were normal including LAI level and inflammatory markers Pt encouraged to continue close follow up with her pulmoniologist Assessment & Plan (09/24/2021 1:42 PM EST): History of pulmonary sarcoidosis diagnosed in 2005-under care of dental ceramist assistant at [facility]-Dr. Butts-no clinical signs at this time and stable lab work from 08/26/2021. Follow with dental ceramist assistant as scheduled. Assessment & Plan (08/25/2021 12:10 AM EST): Hx of pulmonary Sarcoidosis followed by a dental ceramist assistant in [place] There is no synovitis of today's exam Last labs done in 11/03 were normal including LAI level and inflammatory markers which I will repeat today as markers of dz activity Pt encouraged to maintain close follow up with her pulmoniologist Assessment & Plan (09/20/2018 12:42 PM EST): Last angiotensin-converting enzyme level in the fall 2017 was slightly elevated at 55 (upper limits of normal is 53). We will repeat that again today along with a C-reactive protein. Her dyspnea on exertion may be related to lung disease secondary to sarcoid. I will consider pulmonary function test and chest CT. Assessment & Plan (07/19/2018 1:07 PM EST): The patient's sarcoidosis may affect the presenting issue of surgical procedure (s) and may increase the risk of slow healing wound (s), infection (s), kidney, lung and/or heart problems. Stable and/or controlled chronic conditions may reduce complications associated with your chronic condition (s). Assessment & Plan (04/26/2018 12:34 PM EDT): The patient's sarcoid may affect the presenting issue of surgical procedure (s) and may increase the risk of slow healing wound (s), infection (s), kidney, lung and/or heart problems. Stable and/or controlled chronic conditions may reduce complications associated with your chronic condition (s). She says this condition is of her lungs and she has fatigue but does not require oxygen. Immunizations Immunization Administration Dates Next Due Td (adult), not adsorbed 02/13/2010 Td, unspecified formulation 11/25/2020, 9 Family History Medical History Relation Comments Heart failure Father Asthma Mother Diabetes Mother Hyperlipidemia Mother Hypertension Mother Epilepsy Sister Relation Status Comments Father Mother Alive Sister Social History Tobacco Use Types Packs/Day Years Used Date Smoking Tobacco: Former Cigarettes Q uit: 2009 Smokeless Tobacco: Never Tobacco Cessation:Counseling Given: Not Answered Alcohol Use Standard Drinks/Week Comments No 0 (1 standard drink = 0.6 oz pur e alcohol) Education Answer Date Recorded Are you interested in more education? Not on margarita e 12/24/2022 Are you concerned about learning? Not on file 12/24/2022 No 12/24/2022 No 12/24/2022 Digital Access Answer Date Recorded No 01/10/2023 No 01/10/2023 Reliable internet access at home? Not on file 01/10/2023 Device with a working camera? Not on file Comments No Sex and Gender Information Value Date Recorded Sex Assigned at Female 09/12/2017 1:33 PM EST Legal Sex Female 6:51 PM EST Gender Identity Female 09/12/2017 1:33 PM EST Sexual Orientation Straight 09/12/2017 1: 33 PM EST Last Filed Vital Signs Vital Sign Reading Time Taken Comments Blood Pressure 130/80 09/11/2024 10:22 AM EST Pulse 76 11/11/2023 9:52 AM EDT Temperature 35.9 C (96.6 F) 02/09/2023 10:40 AM EDT Respiratory Rate 18 02/09/2023 2:02 PM EDT Oxygen Saturation 99% 11/11/2023 9:52 AM EDT Inhaled Oxygen Concentration - - Weight 75.8 kg (167 lb 3.2 oz) 11/11/2023 9:52 A M EDT Height 160 cm (5' 3 ) 11/11/2023 9:52 AM EDT Body Mass Index 29.62 11/11/2023 9:52 AM EDT Plan of Treatment Health Maintenance Due Date Last Done Comments DEPRESSION SCREENING 1976 HEPATITIS C SCREENING 1982 HIV ONE-TIME SCREENING (18-6 5 YEARS) 1982 PNEUMOCOCCAL VACCINES (50+ years) (1 of 2 - PCV) 1983 MAMMOGRAM 2004 COLOGUARD 2009 FIT TEST 2009 SIGMOIDOSCOPY 2009 VIRTUAL COLONOSCOPY 2009 ZOSTER VACCINES (1 of 2) 2014 LIPID PANEL 01/31/2015 01/31/2010 FOBT 01/04/2019 01/04/2018 PAP SMEAR 09/09/2020 09/09/2017, 09/09/2017 COVID-19 VACCINE (1 - 2023-2 5 season) 2024 RSV VACCINE (1 - Risk 60-74 years 1-dose series) 2024 SMOKING Hx and SMOKELESS TOBACCO SCREENING 09/11/2025 09/11/2024 SCREENING FOR DIABETES 11/10/2026 11/11/2023 COLONOSCOPY 01/22/2028 01/21/2018 COLORECTAL CANCER SCREENING 01/22/2028 Adult Td,Tdap Booster 11/25/2030 11/25/2020 , 02/13/2010, 08/13/1999 HEPATITIS A VACCINES Aged Out No long er eligible based on patient's age to complete this topic HIB VACCINES Aged Out No longer eligi ble based on patient's age to complete this topic MENINGOCOCCAL VACCINES (ACWY) Aged Out No longer eligible based on patient's age to complete this topic MENINGOCOCCAL VACCINES (B) Aged Out N o longer eligible based on patient's age to complete this topic Medical Devices Implanted Type Area [employer] Safety And Health Specialist Device Identifier Shelf Expiration Date Model / Serial / Lot Breast Implants Procedures Procedure Name Priority Date/Time Associated Diagnosis Comments ENDOSCOPY, COLON 01/21/2018 11:0 3 AM EDT FECAL OCCULT BLOOD, MULTIPLE Routine 01/04/2018 12:05 PM EDT Routine medical exam PAP TEST Routine 09/09/2017 12:00 AM EST OUTSIDE LDL Routine 01/31/2010 from Last 3 Months or Most Recently Relevant to Health Maintenance Results * ENDOSCOPY, COLON (01/21/2018 11:03 AM EDT) Narrative Transcriptions Sonny Chester MD - 01/21/2018 11:03 AM EDT Patient Name: Nicolette Mcguire Attending MD:: SONNY CHESTER MD Procedure Date: 01/21/2018 11:03 AM Date of : 1965 Age: 52 Admit Type: Outpatient Gender: Female Room: [facility] 04 Referring MD: JAMIR JALLOH MD Exam Type: Colonoscopy Indications: Abdominal pain in the right upper quadrant, Chronic diarrhea Medications: Monitored Anesthesia Care Procedure: Informed consent was obtained from the patient after discussion of the indications, limitations,alternatives, benefits, and risks of the procedure. Risksspecifically discussed include but are not limited to medication reactions, missed lesions, bleeding, perforation, orthe need for emergent surgery. Throughout the procedure, the patient's blood pressure, pulse, end-tidal CO2, and oxygen saturations were monitored continuously. The Olympus adult variable colonoscope CF-[id number] #5 was introduced through the anus and advanced to theterminal ileum. The colonoscopy was performed withoutdifficulty. The patient tolerated the procedure well. The qualityof the bowel preparation was good. Complications: No immediate complications. Estimated blood loss:None. Findings: The perianal and digital rectal examinations werenormal. The rectum, recto-sigmoid colon, sigmoid colon,descending colon, splenic flexure, transverse colon, hepaticflexure, ascending colon, cecum, appendiceal orifice, ileocecal valve, ileum, rectum (on retroflexion) and ascendingcolon (on retroflexion) appeared normal. Biopsies were taken with a cold forceps for histology. Impression: - The rectum, recto-sigmoid colon, sigmoid colon, descending colon, splenic flexure, transverse colon, hepatic flexure, ascending colon, cecum, appendiceal orifice, ileocecal valve and terminal ileum are normal. Biopsied. Recommendation: - Discharge patient to home. - Resume previous diet. - Continue present medications. - Repeat colonoscopy in 10 years for screeningpurposes. - Return to my office as previously scheduled. - A low FODMAP diet is recomended. SONNY CHESTER MD 01/21/2018 11:34:40 AM This report has been signed electronically. Number of Addenda: 0 Note Initiated On: 01/21/2018 11:03 AM Procedure Code(s): --- Professional --- 76380, Colonoscopy, flexible; with biopsy, single or multiple --- Technical --- 79315, Colonoscopy, flexible; with biopsy, single or multiple Diagnosis Code(s): --- Professional --- R10.11, Right upper quadrant pain K52.9, Noninfective gastroenteritis and colitis, unspecified --- Technical --- R10.11, Right upper quadrant pain K52.9, Noninfective gastroenteritis and colitis, unspecified CPT copyright 2016 [employer] [place] [employer]. All rights reserved. The codes documented in this report are preliminary and upon pre coder reviewmay be revised to meet current compliance requirements. [address] [place] [address] [id number] Jamir Jalloh NP GI PROCEDURE ORDERABLES Edit ed Result - Final * Fecal occult blood, multiple (01/04/2018 12:05 PM EDT) FECAL OCC BLD 1 DATE 52,018 [facility] Occult bld, stool, #1 Negative Negative [facility] FECAL OCC BLD 2 DATE 52,118 [facility] OCCULT BLD, STOOL, #2 Negative Negative [facility] FECAL OCC BLD 3 DATE 52,218 [facility] FECAL OCC BLD 3 RSLT Negative Negative [facility] Stool (Stool) 01/04/2018 12: 05 PM EDT 01/04/2018 12:22 PM EDT us [place] Macdonald PA-C BODY FLUIDS AND STOOLS ORDERABL ES Final Result [address] [address] * Pap Smear (09/09/2017 12:00 AM EST) 09/09/2017 09/10/2017 2:1 9 PM EST Narrative SEE NARRATIVE - 09/16/2017 1:15 PM EST [address] [address] Casual Shoe Inspector: Anuradha Reed MD FOOD AND BEVERAGE COORDINATOR Cytology Report FINAL DIAGNOSIS A. PAP SMEAR (SUREPATH) C: SPECIMEN ADEQUACY: Satisfactory for evaluation; transformation zone present. INTERPRETATION: NEGATIVE FOR INTRAEPITHELIAL LESION OR MALIGNANCY. Electronically Signed Out By: Yan Barnhart The Pap test is a screening test primarily for squamous cancers and precursors and has associated false-negative and false-positive results. New technologies such as liquid-based preparations may decrease but will not eliminate all false-negative results. Regular sampling and follow-up of unexplained clinical signs and symptoms are recommended to minimize false negative results. PROCEDURES/ADDENDA HPV Testing (Requested) Ordered Date: 09/10/2017 HPV Test Negative for high risk human papillomavirus types 16, 18 and the Other high risk probe set (Includes 31, 33, 35, 39, 45, 51, 52, 56, 58, 59, 66, 68) by Erika cobase 4800 HR-HPV analysis. Clinical correlation is advised. This HPV test was performed at [facility], [address] [place] [address]. The accuracy and precision of this test has been verified in the Cytopathology laboratory of the [facility]. This test has not been cleared or approved by the U.S. Food and Drug Administration (FDA). CLINICAL HISTORY Date of Last Menstrual Period: N/A Menstrual History: Post Menopausal Other Clinical Conditions: Screening Pap H/O ASCUS: 2006 SPECIMEN SOURCE A: PAP SMEAR (SUREPATH) C Patient Name: NICOLETTE MCGUIRE : 1965 (Age: 52) Sex: F [facility] Location[facility] Date of Collection: 09/09/2017 Date of Reported: 09/16/2017 13:15 Results to: Lyssa Guerrier MD us Lyssa Guerrier MD CYTOLOGY ORDERABLES Final Result SEE NARRATIVE * Outside LDL (01/31/2010) LDL - External 92 50 - 250 mg/ml us Historical Provider LAB BLOOD ORDERABLES Eva l Result from Last 3 Months or Most Recently Relevant to Health Maintenance Insurance SELECT SELECT SELECT SELECT SELECT SELECT SELECT SELECT SELECT Advance Directives For more information, please contact: [phone] (9AM - 5PM [place], Wednesday-Wednesday) * Full Code (Presumed) (Latest Code Status on File) Date Activated Date Inactivated Comments 08/22/2018 9:32 AM 08/22/2018 5:35 PM Care Teams Four H Agent Relationship Specialty Start Date End Date Melvin Kovacs MD [address] [place] [address] PCP - General Family Medicine 08/12/20 Tito Mayer MD [email or web address] Historical LMR Provider 06/05/17 Jamie Winslow MD [address] [place] [address], [address] [address] [email or web address] Historical LMR Provider 06/05/17 Additional Source Comments The information contained in this document represents components of the legal health record. It is not the complete legal health record.[facility]
--- OUTSIDE RECORDS SUMMARY | 2025-04-25 14:06 | XMS_ITS | Clinical Summary ---
Author Organization [facility], Address [address] [place] [address] [place] [address] Phone Care Team Providers Care Agricultural Mechanic Name Role Phone Melvin Kovacs MD Primary Care Provider [phone] Allergies Active Allergy Reactions Criticality Noted Date [...] meningioma in 2020 and is following with [facility] neurologist every 6 months because initial size [...] of this 28-minute visit was spent in [id number] conversation with the patient going over the [...] 71 03/17/2024 11:48 AM EDT Temperature 36.6 C (97.8 F) 03/17/2024 11:48 AM EDT Respiratory Rate 16 03/17/2024 11:48 AM EDT Oxygen Saturation 100% 03/17/2024 11:48 AM EDT Inhaled Oxygen Concentration - - Weight 69.4 kg (153 lb) 03/17/2024 11:48 AM EDT Height 160 cm (5' 3 ) 03/17/2024 11:48 AM EDT Body Mass Index 27.1 03/17/2024 11:48 AM EDT Plan of Treatment Health Maintenance Due Date Last Done Comments Breast Cancer Screening 1965 Pneumococcal Vaccine: 50+ Ye ars (1 of 2 - PCV) 1983 Colorectal Cancer Screening: Annual FOBT 2013 Colorectal Cancer Screening: Colonoscopy 2013 Colorectal Cancer Screening: Sigmoidoscopy 2013 Influenza Vaccine (#1) 2025 Hepatitis B Vaccine Aged Out No longe r eligible based on patient's age to complete this topic Insurance Care Teams Agricultural Mechanic Relationship Specialty Start Date End Date Melvin Kovacs MD [address] [place] [address] PCP - General Family Medicine 12/29/23
--- OUTSIDE RECORDS SUMMARY | 2025-04-25 14:06 | XMS_ITS | Encounter Summary ---
Author Organization [facility] Address [address] [place] [address] [place] [address] Phone Care Team Providers Care Social Services Aide Name Role Phone Rajwinder Owen Primary Care Provider [phone] Rajwinder Owen Unavailable [phone] Tito Mayer MD Unavailable [email or web address] Mary Jo Yates BUCKLE STRAP DRUM OPERATOR Unavailable Rajwinder Amato BUCKLE STRAP DRUM OPERATOR Unavailable Reinaldo Hernandez MD Unavailable Maryan Garcia BUCKLE STRAP DRUM OPERATOR Unavailable [phone] Doris Rose NP Unavailable Dolores Mattson MD Unavailable Yan Bishop MD Unavailable [phone] Irina Bedolla BUCKLE STRAP DRUM OPERATOR Unavailable Graciela Zamarripa MD Unavailable [phone] Jamie Winslow MD Unavailable Goran High MD Unavailable Lucila Lynne RDCS Unavailable [email or web address] Trey Guillory MD Unavailable Anuradha Kaplan MD Unavailable Jessica Soler NP Primary Care Provider Melvin Kovacs MD Primary Care Provider + Encounter Details Date Type Department Care Team (Latest Contact Info) Description 12/29/2017 Transcribe Orders [facility] [address] [place] [address] [place] Macdonald PA-C [address], [place] [place] [address] [email or web address] Abdominal pain, right upper quadrant (Primary Dx); Diarrhea, unspecified type Social History Tobacco Use Types Packs/Day Years [...] on file documented as of this encounter Results * C-Reactive Protein (12/29/2017 12:06 PM EDT) [facility] C REACTIVE PROTEIN 2.3 0.0 - 4.0 mg/L [facility] Comment:New Reference Range and Measuring Units effective 12/29/17. Blood 12/29/2017 12:0 6 PM EDT 12/29/2017 12:14 PM EDT us [place] Macdonald PA-C LAB BLOOD ORDERABLES Final Resu lt [facility] [address] [place] [address] * (ABNORMAL) Comprehensive metabolic panel (12/29/2017 12:06 PM EDT) [facility] SODIUM 143 133 - 146 mmol/L [facility] POTASSIUM 4.2 3.3 - 5.1 mmol/L [facility] CHLORIDE 102 96 - 108 mmol/L [facility] CO2 30 21 - 35 mmol/L [facility] BUN 8 6 - 19 mg/dL [facility] CREATININE 0.80 0.5 - 1.5 mg/dL [facility] GLUCOSE 109(H) 70 - 99 mg/dL [facility] ALBUMIN 3.9 3.9 - 4.8 g/dL [facility] TOTAL PROTEIN 7.7 6.5 - 8.0 g/dL [facility] CALCIUM 9.6 8.4 - 10.3 mg/dL [facility] ALKALINE PHOSPHATASE 88 39 - 117 U/L [facility] TOTAL BILIRUBIN 0.7 0.0 - 1.2 mg/dL [facility] AST 21 0 - 37 U/L [facility] ALT 18 0 - 40 U/L [facility] GLOBULIN 3.8 1 - 4.8 g/dL [facility] EGFR 84 >59 mL/min/1.7 3m2 [facility] Comment:If patient is black, multiply result by 1.159. The eGFR calculation has changed from the MDRD equation to the CKD-EPI equation as of October 19, 2017. ANION GAP 15 10 - 20 mmol/L [facility] Blood 12/29/2017 12:0 6 PM EDT 12/29/2017 12:14 PM EDT us [place] Macdonald PA-C LAB BLOOD ORDERABLES Final Resu lt [facility] [address] [place] [address] * CBC (12/29/2017 12:06 PM EDT) WBC 6.24 3.40 - 11.20 K/uL [facility] RBC 4.58 3.80 - 4.80 M/uL [facility] HGB 13.0 12.0 - 15.0 g/dL [facility] HCT 39.0 36.0 - 46.0 % [facility] PLT 193 130 - 400 K/uL [facility] MCV 85.2 79.0 - 98.0 fL [facility] MCH 28.4 27.0 - 34.8 pg [facility] MCHC 33.3 31.5 - 36.0 g/dL [facility] RDW 12.9 10.8 - 14.6 % [facility] MPV 10.4 9.4 - 12.4 fl [facility] NRBC 0.00 /100 WBCs [facility] ABSOLUTE NRBC 0.00 K/uL [facility] Blood 12/29/2017 12:0 6 PM EDT 12/29/2017 12:14 PM EDT us [place] Macdonald PA-C LAB BLOOD ORDERABLES Final Resu lt [facility] [address] [place] [address] * Tissue transglutaminase IgA (12/29/2017 12:06 PM EDT) TTG IGA ANTIBODY <1.2 <4.0 (Negative) U/mL [facility] DPT OF LAB MED AND PAT+ Blood 12/29/2017 12:0 6 PM EDT 12/29/2017 12:15 PM EDT us [place] Macdonald PA-C LAB BLOOD ORDERABLES Final Resu lt [facility] DPT OF LAB MED AND PAT+ [address] [place] [address] documented in this encounter Visit Diagnoses Diagnosis Abdominal pain, right upper quadrant- Primary Diarrhea, unspecified type documented in this encounter Care Teams Social Services Aide Relationship Specialty Start Date End Date Rajwinder Owen PA [address] [place] [address] [facility] [address] [place] [address] PCP - General Unknown Provider Specialty 03/11/15 01/20/18 Jessica Soler NP [facility] [address] [place] [address] PCP - General Family Medicine 01/21/18 08/11/20 Melvin Kovacs MD [address] [place] [address] PCP - General Family Medicine 08/12/20 Rajwinder Owen PA [address] [place] [address] [address] Historical LMR Provider 06/05/17 Tito Mayer MD [email or web address] Historical LMR Provider 06/05/17 Mary Jo Yates NP [address] [place] [address] Historical LMR Provider 06/05/17 2 Rajwinder Amato NP [address] [place] [address] Historical LMR Provider 06/05/17 2 Reinaldo Hernandez MD [address] [address] [email or web address] Historical LMR Provider 06/05/17 08/23/21 Maryan Garcia NP [address] [place] [address] [email or web address] Historical LMR Provider 06/05/17 08/23/21 Doris Rose NP [address] [place] [phone] Historical LMR Provider 06/05/17 2 Dolores Mattson MD [address] [facility], 2nd [place] [address] Historical LMR Provider 06/05/17 Yan Bishop MD [address] [facility], 2nd [place] [address] Historical LMR Provider 06/05/17 08/23/21 Irina Bedolla, ARLET [address] [place] [address] Historical LMR Provider 06/05/17 2 Graciela Zamarripa MD [address] [place] [address] 7 [place] [address] Historical LMR Provider 06/05/17 08/23/21 Jamie Winslow MD [address] [place] [address], [address] [place] [address] Historical LMR Provider 06/05/17 Goran High MD [address] [place] [phone] Historical LMR Provider 06/05/17 2 Lucila Lynne, RDCS Historical LMR Provider 06/05/17 08/23/21 Trey Guillory MD [address] [place] [phone] Historical LMR Provider 06/05/17 2 Anuradha Kaplan MD [address] [place] [address] [email or web address] Historical LMR Provider 06/05/17 08/23/21 documented as of this encounter Additional Source Comments The information contained in this document represents components of the legal health record. It is not the complete legal health record.[facility]
--- OUTSIDE RECORDS SUMMARY | 2025-04-25 14:06 | XMS_ITS | Encounter Summary ---
Author Organization [facility] Address [address] [place] [address] [place] [address] Phone Care Team Providers Care Drying Room Supervisor Name Role Phone Rajwinder Owen Unavailable Tito Mayer MD Unavailable [email or web address] Mary Jo Yates SURFACING TECHNICIAN Unavailable Rajwinder Amato SURFACING TECHNICIAN Unavailable Reinaldo Hernandez MD Unavailable Maryan Garcia SURFACING TECHNICIAN Unavailable [phone] Doris Rose NP Unavailable Dolores Mattson MD Unavailable Yan Bishop MD Unavailable Irina Bedolla SURFACING TECHNICIAN Unavailable [phone] Graciela Zamarripa MD Unavailable Jamie Winslow MD Unavailable Goran High MD Unavailable Lucila Lynne RDCS Unavailable [email or web address] Trey Guillory MD Unavailable Anuradha Kaplan MD Unavailable Jessica Soler SURFACING TECHNICIAN Primary Care Provider Melvin Kovacs MD Primary Care Provider + Encounter Details Date Type Department Care Team (Late st Contact Info) Description 05/03/2018 Ancillary Orders [address] DO [address] [place] [address] Orthopedics [facility] Sports Medicine, [place] [address] [email or web address] Left shoulder pain, unspecified [...] Imaging Routine Left shoulder pain, unspecified chronicity 05/04/2018 8:36 AM EDT Scheduled Orders Name Type Priority Associated Diagnoses Orde r Schedule FL Guidance Needle Placement Non-Spine Imaging Routine Left shoulder pain, unspecified chronicity Expected: 05/03/2018, Expires: 08/02/2019 documented as of this encounter Visit Diagnoses Diagnosis Left shoulder pain, unspecified chronicity documented in this encounter Care Teams Drying Room Supervisor Relationship Specialty Start Date End Date Jessica Soler NP [address] [place] [address] PCP - General Family Medicine 01/21/18 08/11/20 Melvin Kovacs MD [address] [place] [address] PCP - General Family Medicine 08/12/20 Rajwinder Owen PA [address] [place] [address] [place] [address] Historical LMR Provider 06/05/17 Tito Mayer MD [email or web address] Historical LMR Provider 06/05/17 Mary Jo Yates NP [address] [place] [address] Historical LMR Provider 06/05/17 2 Rajwinder Amato NP [address] [place] [address] Historical LMR Provider 06/05/17 2 Reinaldo Hernandez MD [address] [address] Historical LMR Provider 06/05/17 08/23/21 Maryan Garcia NP [address] [place] [address] [email or web address] Historical LMR Provider 06/05/17 08/23/21 Doris Rose SURFACING TECHNICIAN [address] [place] [phone] Historical LMR Provider 06/05/17 2 Dolores Mattson MD [address] [address] Historical LMR Provider 06/05/17 Yan Bishop MD [address] [address] [email or web address] Historical LMR Provider 06/05/17 08/23/21 Irina Bedolla NP [address] [place] [address] Historical LMR Provider 06/05/17 2 Graciela Zamarripa MD [address] [place] [address] 7 [place] [address] [email or web address] Historical LMR Provider 06/05/17 08/23/21 Jamie Winslow MD [address] [place] [address] [email or web address] Historical LMR Provider 06/05/17 Goran High MD [address] [place] [phone] Historical LMR Provider 06/05/17 2 Lucila Lynne, RDCS Historical LMR Provider 06/05/17 08/23/21 Trey Guillory MD [address] [place] [phone] Historical LMR Provider 06/05/17 2 Anuradha Kaplan MD [address] [place] [address] [email or web address] Historical LMR Provider 06/05/17 08/23/21 documented as of this encounter Additional Source Comments The information contained in this document represents components of the legal health record. It is not the complete legal health record.[facility]
--- OUTSIDE RECORDS SUMMARY | 2025-04-25 14:07 | XMS_ITS | Encounter Summary ---
Author Organization [facility] Address [address] [place] [address] [place] [address] Phone Care Team Providers Care Dynamite Packing Machine Feeder Name Role Phone Rajwinder Owen Primary Care Provider Rajwinder Owen Unavailable Tito Mayer MD Unavailable [email or web address] Mary Jo Yates LETTER OF CREDIT DOCUMENT EXAMINER Unavailable Rajwinder Amato LETTER OF CREDIT DOCUMENT EXAMINER Unavailable Reinaldo Hernandez MD Unavailable Maryan Garcia LETTER OF CREDIT DOCUMENT EXAMINER Unavailable [phone] Doris Rose NP Unavailable Dolores Mattson MD Unavailable Yan Bishop MD Unavailable Irina Bedolla LETTER OF CREDIT DOCUMENT EXAMINER Unavailable [phone] Graciela Zamarripa MD Unavailable Jamie Winslow MD Unavailable Goran High MD Unavailable Lucila Lynne RDCS Unavailable [email or web address] Trey Guillory MD Unavailable Anuradha Kaplan MD Unavailable Jessica Soler NP Primary Care Provider Melvin Kovacs MD Primary Care Provider + Encounter Details Date Type Department Care Team (Late st Contact Info) Description 01/07/2018 Ancillary Orders Virtual Department 30 [place] [address] Jessica Soler, LETTER OF CREDIT DOCUMENT EXAMINER [address] [place], [place] [phone] Right sided abdominal pain Social History Tobacco Use Types Packs/Day Years [...] as of this encounter Visit Diagnoses Diagnosis Right sided abdominal pain Abdominal pain, unspecified site documented in this encounter Care Teams Dynamite Packing Machine Feeder Relationship Specialty Start Date End Date Rajwinder Owen PA Valdo SORIANO 1 [place] [address] PCP - General Unknown Provider Specialty 03/11/15 01/20/18 Jessica Soler, ARLET [address] [address] PCP - General Family Medicine 01/21/18 08/11/20 Melvin Kovacs MD [address] [place] [address] PCP - General Family Medicine 08/12/20 Rajwinder Owen PA 31 [address]ORIAN[address] 1 [place], [place] Historical LMR Provider 06/05/17 Tito Mayer MD [email or web address] Historical LMR Provider 06/05/17 Mary Jo Yates NP [address] [place] [address] Historical LMR Provider 06/05/17 2 Rajwinder Amato NP [address] [place] [address] Historical LMR Provider 06/05/17 2 Reinaldo Hernandez MD [address] [place] [address] Historical LMR Provider 06/05/17 08/23/21 Maryan Garcia NP [address] [place] [address] [email or web address] Historical LMR Provider 06/05/17 08/23/21 Doris Rose LETTER OF CREDIT DOCUMENT EXAMINER [address] [place] [phone] Historical LMR Provider 06/05/17 2 Dolores Mattson MD [address] [place] [address] Historical LMR Provider 06/05/17 Yan Bishop MD [address] [place] [address] Historical LMR Provider 06/05/17 08/23/21 Irina Bedolla NP [address] [place] [address] Historical LMR Provider 06/05/17 2 Graciela Zamarripa MD [address] [place] [address] 7 [place] [address] Historical LMR Provider 06/05/17 08/23/21 Jamie Winslow MD [address] [place] [address] Historical LMR Provider 06/05/17 Goran High MD [address] [place] [phone] Historical LMR Provider 06/05/17 2 Lucila Lynne, [facility] Historical LMR Provider 06/05/17 08/23/21 Trey Guillory MD [address] [place] [phone] Historical LMR Provider 06/05/17 2 Anuradha Kaplan MD [address] [address] [email or web address] Historical LMR Provider 06/05/17 08/23/21 documented as of this encounter Additional Source Comments The information contained in this document represents components of the legal health record. It is not the complete legal health record.[facility]
--- OUTSIDE RECORDS SUMMARY | 2025-04-25 14:07 | XMS_ITS | Encounter Summary ---
Author Organization [facility] Address [address] [place] [address] [place] [address] Phone Care Team Providers Care Packing Clerk Name Role Phone Rajwinder Owen Primary Care Provider Rajwinder Owen Unavailable Tito Mayer MD Unavailable [email or web address] Mary Jo Yates RAIL EQUIPMENT OPERATOR Unavailable [phone] Rajwinder Amato RAIL EQUIPMENT OPERATOR Unavailable Reinaldo Hernandez MD Unavailable Maryan Garcia RAIL EQUIPMENT OPERATOR Unavailable [phone] Doris Rose NP Unavailable Dolores Mattson MD Unavailable Yan Bishop MD Unavailable Irina Bedolla RAIL EQUIPMENT OPERATOR Unavailable Graciela Zamarripa MD Unavailable [phone] Jamie Winslow MD Unavailable Goran High MD Unavailable Lucila Lynne RDCS Unavailable [email or web address] Trey Guillory MD Unavailable [phone] Anuradha Kaplan MD Unavailable Jessica Soler NP Primary Care Provider [phone] Melvin Kovacs MD Primary Care Provider + Encounter Details Date Type Department Care Team (Late st Contact Info) Description 01/07/2018 Procedure Pass [facility], Ct Scan - [address] [address] Social History Tobacco Use Types Packs/Day Years [...] on filedocumented in this encounter Care Teams Packing Clerk Relationship Specialty Start Date End Date Rajwinder Owen PA Valdo SORIANO 1 [place] [address] PCP - General Unknown Provider Specialty 03/11/15 01/20/18 Jessica Soler, ARLET [address] [place] [address] PCP - General Family Medicine 01/21/18 08/11/20 Melvin Kovacs MD [address] [place] [address] PCP - General Family Medicine 08/12/20 Rajwinder Owen PA Valdo SORIANO 1 [place] [address] Historical LMR Provider 06/05/17 Tito Mayer MD [email or web address] Historical LMR Provider 06/05/17 Mary Jo Yates NP [address] [place] [address] 340 [place] [address] Historical LMR Provider 06/05/17 2 Rajwinder Amato NP [address] [place] [address] Historical LMR Provider 06/05/17 2 Reinaldo Hernandez MD [address] [place] [address] Historical LMR Provider 06/05/17 08/23/21 Maryan Garcia NP [address] [place] [address] [email or web address] Historical LMR Provider 06/05/17 08/23/21 Doris Rose NP [address] [place] [phone] Historical LMR Provider 06/05/17 2 Dolores Mattson MD [address] [place] [address] Historical LMR Provider 06/05/17 Yan Bishop MD [address] [address] Historical LMR Provider 06/05/17 08/23/21 Irina Bedolla NP [address] [place] [address] Historical LMR Provider 06/05/17 2 Graciela Zamarripa MD 234 [facility] 7 [place] [address] Historical LMR Provider 06/05/17 08/23/21 Jamie Winslow MD 22 [facility] 102 [place] [address] Historical LMR Provider 06/05/17 Goran High MD [address] [place] [address] 7 [place] [phone] Historical LMR Provider 06/05/17 2 Lucila Lynne, RDCS Historical LMR Provider 06/05/17 08/23/21 Trey Guillory MD [address] [place] [phone] Historical LMR Provider 06/05/17 2 Anuradha Kaplan MD [address] [place] [address] [email or web address] Historical LMR Provider 06/05/17 08/23/21 documented as of this encounter Additional Source Comments The information contained in this document represents components of the legal health record. It is not the complete legal health record.[facility]
--- OUTSIDE RECORDS SUMMARY | 2025-04-25 14:07 | XMS_ITS | Encounter Summary ---
Author Organization [facility] Address [address] [place] [address] [place] [address] Phone Care Team Providers Care Informix Developer Name Role Phone Rajwinder Owen Unavailable [phone] Tito Mayer MD Unavailable [email or web address] Mary Jo Yates CAR INSPECTOR Unavailable [phone] Rajwinder Amato CAR INSPECTOR Unavailable Reinaldo Hernandez MD Unavailable Maryan Garcia CAR INSPECTOR Unavailable [phone] Doris Rose NP Unavailable Dolores Mattson MD Unavailable Yan Bishop MD Unavailable [phone] Irina Bedolla CAR INSPECTOR Unavailable Graciela Zamarripa MD Unavailable Jamie Winslow MD Unavailable Goran High MD Unavailable Lucila Lynne RDCS Unavailable [email or web address] Trey Guillory MD Unavailable Anuradha Kaplan MD Unavailable Jessica Soler CAR INSPECTOR Primary Care Provider Melvin Kovacs MD Primary Care Provider + Encounter Details Date Type Department Care Team (Latest Contact Info) Description 05/25/2018 Transcribe Orders [facility] [address] [address] Deven Ken MD [address] [place] [address], [address] [place] [address] [email or web address] RUQ abdominal pain (Primary Dx) Social History Tobacco Use Types Packs/Day Years [...] documented as of this encounter Results * Gastrin (05/25/2018 11:50 AM EDT) GASTRIN 17 pg/ml [facility] Comment: (NOTE) REFERENCE VALUE <100 Reference ranges valid for >= 8 hour fast. Blood 05/25/2018 11:5 0 AM EDT 05/25/2018 11:56 AM EDT us Deven Ken MD LAB BLOOD ORDERABLES Final Res ult [facility] [address] [place] [address] * Lipase (05/25/2018 11:50 AM EDT) LIPASE 28 16 - 63 U/L [facility] Blood 05/25/2018 11:5 0 AM EDT 05/25/2018 11:56 AM EDT us Deven Ken MD LAB BLOOD ORDERABLES Final Res ult Performing Organization Address City/[facility]/ZIP Co de Phone Number [address] [address] * C-Reactive Protein (05/25/2018 11:50 AM EDT) C REACTIVE PROTEIN 1.6 0.0 - 4.0 mg/L [facility] Blood 05/25/2018 11:5 0 AM EDT 05/25/2018 11:56 AM EDT us Deven Ken MD LAB BLOOD ORDERABLES Final Res ult Performing Organization Address [facility] Co de Phone Number [address] [address] * Comprehensive metabolic panel (05/25/2018 11:50 AM EDT) SODIUM 140 133 - 146 mmol/L [facility] POTASSIUM 4.0 3.3 - 5.1 mmol/L [facility] CHLORIDE 99 96 - 108 mmol/L [facility] CO2 29 21 - 35 mmol/L [facility] BUN 11 6 - 19 mg/dL [facility] CREATININE 0.70 0.5 - 1.5 mg/dL [facility] GLUCOSE 96 70 - 99 mg/dL [facility] ALBUMIN 3.9 3.9 - 4.8 g/dL [facility] TOTAL PROTEIN 7.6 6.5 - 8.0 g/dL [facility] CALCIUM 9.5 8.4 - 10.3 mg/dL [facility] ALKALINE PHOSPHATASE 94 39 - 117 U/L [facility] TOTAL BILIRUBIN 0.6 0.0 - 1.2 mg/dL [facility] AST 16 0 - 37 U/L [facility] ALT 14 0 - 40 U/L [facility] GLOBULIN 3.7 1 - 4.8 g/dL [facility] EGFR 99 >59 mL/min/1.7 3m2 [facility] Comment:If patient is black, multiply result by 1.159. Estimated glomerular filtration rate calculated using the CKD-EPI equation. ANION GAP 16 10 - 20 mmol/L [facility] Blood 05/25/2018 11:5 0 AM EDT 05/25/2018 11:56 AM EDT us Deven Ken MD LAB BLOOD ORDERABLES Final Res ult Performing Organization Address City/[facility]/ZIP Co de Phone Number [address] [address] * CBC (05/25/2018 11:50 AM EDT) WBC 6.80 3.40 - 11.20 K/uL [facility] RBC 4.46 3.80 - 4.80 M/uL [facility] HGB 12.8 12.0 - 15.0 g/dL [facility] HCT 37.8 36.0 - 46.0 % [facility] PLT 208 130 - 400 K/uL [facility] MCV 84.8 79.0 - 98.0 fL [facility] MCH 28.7 27.0 - 34.8 pg [facility] MCHC 33.9 31.5 - 36.0 g/dL [facility] RDW 12.9 10.8 - 14.6 % [facility] MPV 10.1 9.4 - 12.4 fl [facility] NRBC 0.00 /100 WBCs [facility] ABSOLUTE NRBC 0.00 K/uL [facility] Blood 05/25/2018 11:5 0 AM EDT 05/25/2018 11:56 AM EDT us Deven Ken MD LAB BLOOD ORDERABLES Final Res ult [address] [address] * Amylase (05/25/2018 11:50 AM EDT) AMYLASE 79 28 - 100 U/L [facility] Blood 05/25/2018 11:5 0 AM EDT 05/25/2018 11:56 AM EDT us Deven Ken MD LAB BLOOD ORDERABLES Final Res ult [facility] 30 [place] [address] documented in this encounter Visit Diagnoses Diagnosis RUQ abdominal pain- Primary Abdominal pain, right upper quadrant documented in this encounter Care Teams Informix Developer Relationship Specialty Start Date End Date Jessica Soler, CAR INSPECTOR 46 [facility] [address] [place] [address] PCP - General Family Medicine 01/21/18 08/11/20 Melvin Kovacs MD [address] [place] [address] PCP - General Family Medicine 08/12/20 Rajwinder Owen PA [address] [place] [address] Historical LMR Provider 06/05/17 Tito Mayer MD [email or web address] Historical LMR Provider 06/05/17 Mary Jo Yates NP [address] [place] [address] Historical LMR Provider 06/05/17 2 Rajwinder Amato NP 30 [place] [address] Historical LMR Provider 06/05/17 2 Reinaldo Hernandez MD 22 [facility], [address] [place] [address] Historical LMR Provider 06/05/17 08/23/21 Maryan Garcia CAR INSPECTOR [address] [place] [address] Historical LMR Provider 06/05/17 08/23/21 Doris Rose CAR INSPECTOR [address] [place] [phone] Historical LMR Provider 06/05/17 2 Dolores Mattson MD [address] [place] [address] Historical LMR Provider 06/05/17 Yan Bishop MD [address] [place] [address] Historical LMR Provider 06/05/17 08/23/21 Irina Bedolla NP [address] [place] [address] Historical LMR Provider 06/05/17 2 Graciela Zamarripa MD [address] [place] [address] Historical LMR Provider 06/05/17 08/23/21 Jamie Winslow MD [address] [address] Historical LMR Provider 06/05/17 Goran High MD [address] [place] [phone] Historical LMR Provider 06/05/17 2 Lucila Lynne, RDCS [email or web address] Historical LMR Provider 06/05/17 08/23/21 Trey Guillory MD [address] [place] [phone] Historical LMR Provider 06/05/17 2 Anuradha Kaplan MD [address] [place] [address] [email or web address] Historical LMR Provider 06/05/17 08/23/21 documented as of this encounter Additional Source Comments The information contained in this document represents components of the legal health record. It is not the complete legal health record.[facility]
--- OUTSIDE RECORDS SUMMARY | 2025-04-25 14:07 | XMS_ITS | Encounter Summary ---
Author Organization [facility] Address [address] [place] [address] [place] [address] Phone Care Team Providers Care Enrollment Consultant Name Role Phone Rajwinder Owen Unavailable [phone] Tito Mayer MD Unavailable [email or web address] Mary Jo Yates PROOF MACHINE OPERATOR SUPERVISOR Unavailable Rajwinder Amato PROOF MACHINE OPERATOR SUPERVISOR Unavailable Reinaldo Hernandez MD Unavailable Maryan Garcia PROOF MACHINE OPERATOR SUPERVISOR Unavailable [phone] Doris Rose NP Unavailable Dolores Mattson MD Unavailable Yan Bishop MD Unavailable Irina Bedolla PROOF MACHINE OPERATOR SUPERVISOR Unavailable Graciela Zamarripa MD Unavailable Jamei Winslow MD Unavailable Goran High MD Unavailable Lucila Lynne RDCS Unavailable [email or web address] Trey Guillory MD Unavailable Anuradha Kaplan MD Unavailable Jessica Soler PROOF MACHINE OPERATOR SUPERVISOR Primary Care Provider [phone] Melvin Kovacs MD Primary Care Provider + Encounter Details Date Type Department Care Team (Late st Contact Info) Description 08/22/2018 Procedure Pass OR Admitting Dept - Virtual Department [address] [place] [address] Social History Tobacco Use Types Packs/Day Years Used Date Smoking Tobacco: Former Cigarettes Q uit: 2009 Smokeless Tobacco: Never Alcohol Use Standard Drinks/Week [...] on filedocumented in this encounter Care Teams Enrollment Consultant Relationship Specialty Start Date End Date Jessica Soler PROOF MACHINE OPERATOR SUPERVISOR [address] [place] [address] PCP - General Family Medicine 01/21/18 08/11/20 Melvin Kovacs MD [address] [place] [address] PCP - General Family Medicine 08/12/20 Rajwinder Owen PA [address] [place] [address] Historical LMR Provider 06/05/17 Tito Mayer MD [email or web address] Historical LMR Provider 06/05/17 Mary Jo Yates NP [address] [place] [address] Historical LMR Provider 06/05/17 2 Rajwinder Amato NP 30 [place] [address] Historical LMR Provider 06/05/17 2 Reinaldo Hernandez MD [address] [address] Historical LMR Provider 06/05/17 08/23/21 Maryan Garcia NP [address] [place] [address] [email or web address] Historical LMR Provider 06/05/17 08/23/21 Doris Rose NP [address] [place] [phone] Historical LMR Provider 06/05/17 2 Dolores Mattson MD [address] [address] Historical LMR Provider 06/05/17 Yan Bishop MD [address] [address] Historical LMR Provider 06/05/17 08/23/21 Irina Bedolla NP [address] [place] [address] Historical LMR Provider 06/05/17 2 Graciela Zamarripa MD [address] [place] [address] Historical LMR Provider 06/05/17 08/23/21 Jamie Winslow MD 22 [facility], [address] [place] [address] Historical LMR Provider 06/05/17 Goran High MD [address] [place] [address] 7 [place] [address] Historical LMR Provider 06/05/17 2 Lucila Lynne, [facility] Historical LMR Provider 06/05/17 08/23/21 Trey Guillory MD [address] [place] [phone] Historical LMR Provider 06/05/17 2 Anuradha Kaplan MD [address] [address] [email or web address] Historical LMR Provider 06/05/17 08/23/21 documented as of this encounter Additional Source Comments The information contained in this document represents components of the legal health record. It is not the complete legal health record.[facility]
--- OUTSIDE RECORDS SUMMARY | 2025-04-25 14:07 | XMS_ITS | Encounter Summary ---
Author Organization [facility] Address [address] [place] [address] [place] [address] Phone Care Team Providers Care Sales Negotiator Name Role Phone Rajwinder Owen Unavailable Tito Mayer MD Unavailable [email or web address] Mary Jo Yates MILLWRIGHT SUPERVISOR Unavailable Rajwinder Amato MILLWRIGHT SUPERVISOR Unavailable Reinaldo Hernandez MD Unavailable Maryan Garcia MILLWRIGHT SUPERVISOR Unavailable [phone] Doris Rose NP Unavailable Dolores Mattson MD Unavailable Yan Bishop MD Unavailable Irina Bedolla MILLWRIGHT SUPERVISOR Unavailable Graciela Zamarripa MD Unavailable Jamie Winslow MD Unavailable Goran High MD Unavailable Lucila Lynne RDCS Unavailable [email or web address] Trey Guillory MD Unavailable [phone] Anuradha Kaplan MD Unavailable Jessica Soler MILLWRIGHT SUPERVISOR Primary Care Provider [phone] Melvin Kovacs MD Primary Care Provider + Encounter Details Date Type Department Care Team (Late st Contact Info) Description 05/09/2018 Ancillary Orders [facility],Outside Imaging 30 [place] [address] System, Provider Not In, [facility] [address] [address] Social History Tobacco Use Types Packs/Day Years [...] documented as of this encounter Results * US Abdomen Outside (No Interpretation) (01/09/2018 12:00 AM EDT) Narrative SYSTEMGENERATED, DOCUMENTATION - 05/09/2018 8:52 AM EDT This study is for PACS storage only and not for interpretation. us Provider Not In System PhD IMG OUTSIDE IMAGING W /OUT INTERPRETATION Final Result documented in this encounter Visit Diagnoses Not on filedocumented in this encounter Care Teams Sales Negotiator Relationship Specialty Start Date End Date Jessica Soler NP [address] [address] PCP - General Family Medicine 01/21/18 08/11/20 Melvin Kovacs MD [address] [place] [address] PCP - General Family Medicine 08/12/20 Rajwinder Owen PA [address] [place] [address] Historical LMR Provider 06/05/17 Tito Mayer MD [email or web address] Historical LMR Provider 06/05/17 Mary Jo Yates NP [address] [place] [address] Historical LMR Provider 06/05/17 2 Rajwinder Amato NP [address] [place] [address] Historical LMR Provider 06/05/17 2 Reinaldo Hernandez MD [address] [place] [address] Historical LMR Provider 06/05/17 08/23/21 Maryan Garcia MILLWRIGHT SUPERVISOR [address] [place] [address] [email or web address] Historical LMR Provider 06/05/17 08/23/21 Doris Rose MILLWRIGHT SUPERVISOR [address] [place] [phone] Historical LMR Provider 06/05/17 2 Dolroes Mattson MD [address] [place] [address] Historical LMR Provider 06/05/17 Yan Bishop MD [address] [place] [address] Historical LMR Provider 06/05/17 08/23/21 Irina Bedolla NP [address] [place] [address] Historical LMR Provider 06/05/17 2 Graciela Zamarripa MD [address] [place] [address] 7 [place] [address] Historical LMR Provider 06/05/17 08/23/21 Jamie Winslow MD [address] [address] Historical LMR Provider 06/05/17 Goran High MD [address] [place] [address] 7 [place] [phone] Historical LMR Provider 06/05/17 2 Lucila Lynne, [facility] Historical LMR Provider 06/05/17 08/23/21 Trey Guillory MD [address] [place] [phone] Historical LMR Provider 06/05/17 2 Anuradha Kaplan MD [address] [address] [email or web address] Historical LMR Provider 06/05/17 08/23/21 documented as of this encounter Additional Source Comments The information contained in this document represents components of the legal health record. It is not the complete legal health record.[facility]
--- OUTSIDE RECORDS SUMMARY | 2025-04-25 14:07 | XMS_ITS | Encounter Summary ---
Author Organization [facility] Address [address] [place] [address] [place] [address] Phone Care Team Providers Care Spray Painter Name Role Phone Rajwinder Owen Unavailable [phone] Tito Mayer MD Unavailable [email or web address] Mary Jo Yates ADVERTISING COPYWRITER Unavailable Rajwinder Amato ADVERTISING COPYWRITER Unavailable Reinaldo Hernandez MD Unavailable Maryan Garcia ADVERTISING COPYWRITER Unavailable [phone] Doris Rose NP Unavailable Dolores Mattson MD Unavailable Yan Bishop MD Unavailable Irina Bedolla ADVERTISING COPYWRITER Unavailable Graciela Zamarripa MD Unavailable Jamie Winslow MD Unavailable Goran High MD Unavailable Lucila Lynne RDCS Unavailable [email or web address] Trey Guillory MD Unavailable Anuradha Kaplan MD Unavailable Jessica Soler ADVERTISING COPYWRITER Primary Care Provider Melvin Kovacs MD Primary Care Provider + Reason for Referral * MRI/CAT Scan - Closed Specialty Diagnoses / Procedures Referred By Kilo randolph Referred To Contact Radiology Diagnoses Abdominal pain, right upper quadrant Procedures CT Angio Abdomen Sonny Saeed MD Phone: tel: fax: [email or web address] Referral ID Status Reason Start Date Expiration Date Visits Re quested Visits Authorized [id number] Closed 05/30/2018 05/30/2019 1 1 Encounter Details Date Type Department Care Team (Late st Contact Info) Description 05/30/2018 Ancillary Orders Virtual Department [address] [place] [address] Sonny Saeed MD [address] [place] [address] [email or web address] Abdominal pain, right upper quadrant Social History Tobacco Use Types Packs/Day Years [...] documented as of this encounter Results * CT ANGIO ABDOMEN WITH CONTRAST (06/03/2018 12:25 PM EDT) Anatomical Region Laterality Modality Abdomen, Abdominal Vasculature C omputed Tomography 06/03/2018 12:0 7 PM EDT Impressions 06/03/2018 12:29 PM EDT No explanation for abdominal pain or right upper quadrant pain is seen. No vascular compromise is evident. The celiac artery and superior mesenteric artery are widely patent without compromise. There is no evidence of a median arcuate ligament syndrome. TOTAL CTDIvol: 19.90 mGy S/S: Abdominal pain, right upper quadrant pain, question vascular compromise POS - [id number] Narrative 06/03/2018 12:29 PM EDT COMPARISON:Prior CT abdomen pelvis January 09, 2018 and earlier TECHNIQUE: Pre-contrast views were obtained in preparation for CT angiogram. Rapid intravenous contrast administration was then performed with multi detector CT obtained from diaphragm to the iliac crests. Multiplanar, 3-D angiographic reformats are evaluated on the workstation. Sagittal and coronal reformats were also generated. Automated exposure control utilized. FINDINGS: The aorta is unremarkable without dilatation. No significant plaquing is seen. The celiac axis and superior mesenteric artery are widely patent at their origin without compromise. No atherosclerotic irregularity or occlusive disease is seen. The renal arteries are patent without compromise. The patient has had a prior cholecystectomy. No significant bile duct dilatation is noted. No focal hepatic pathology is seen. The spleen is unremarkable. The kidneys are not hydronephrotic. No adrenal masses are seen. The pancreas appears normal. The bowel pattern is non-specific. There are mild degenerative changes at the thoracolumbar junction and lower lumbar spine. Procedure Note Chad Owens MD - 06/03/2018 COMPARISON:Prior CT abdomen pelvis January 09, 2018 and earlier TECHNIQUE: Pre-contrast views were obtained in preparation for CTangiogram. Rapid intravenous contrast administration was then performedwith multi detector CT obtained from diaphragm to the iliac crests.Multiplanar, 3-D angiographic reformats are evaluated on the workstation.Sagittal and coronal reformats were also generated. Automated exposurecontrol utilized. FINDINGS: The aorta is unremarkable without dilatation. No significant plaquing isseen. The celiac axis and superior mesenteric artery are widely patent attheir origin without compromise. No atherosclerotic irregularity orocclusive disease is seen. The renal arteries are patent withoutcompromise. The patient has had a prior cholecystectomy. No significant bile ductdilatation is noted. No focal hepatic pathology is seen. The spleen is unremarkable. The kidneys are not hydronephrotic. No adrenal masses are seen. The pancreas appears normal. The bowel pattern is non-specific. There are mild degenerative changes at the thoracolumbar junction andlower lumbar spine. IMPRESSION: No explanation for abdominal pain or right upper quadrant pain is seen. Novascular compromise is evident. The celiac artery and superior mesentericartery are widely patent without compromise. There is no evidence of amedian arcuate ligament syndrome. TOTAL CTDIvol: 19.90 mGy S/S: Abdominal pain, right upper quadrant pain, question vascularcompromise POS - [id number] us Sonny Saeed MD IMG CT ABD/PELVIS Final Resu lt documented in this encounter Visit Diagnoses Diagnosis Abdominal pain, right upper quadrant Abdominal pain, right upper quadrant documented in this encounter Care Teams Spray Painter Relationship Specialty Start Date End Date Jessica Soler ADVERTISING COPYWRITER [address] [address] PCP - General Family Medicine 01/21/18 08/11/20 Melvin Kovacs MD [address] [place] [address] PCP - General Family Medicine 08/12/20 Rajwinder Owen PA [address] [place] [address] Historical LMR Provider 06/05/17 Tito Mayer MD [email or web address] Historical LMR Provider 06/05/17 Mary Jo Yates NP [address] [place] [address] Historical LMR Provider 06/05/17 2 Rajwinder Amato NP [address] [place] [address] Historical LMR Provider 06/05/17 2 Reinaldo Hernandez MD [address] [address] [email or web address] Historical LMR Provider 06/05/17 08/23/21 Maryan Garcia ADVERTISING COPYWRITER [address] [place] [address] [email or web address] Historical LMR Provider 06/05/17 08/23/21 Doris Rose NP [address] [place] [phone] Historical LMR Provider 06/05/17 2 Dolores Mattson MD [address] [place] [address] [email or web address] Historical LMR Provider 06/05/17 Yan Bishop MD [address] [address] Historical LMR Provider 06/05/17 08/23/21 Irina Bedolla NP [address] [place] [address] Historical LMR Provider 06/05/17 2 Graciela Zamarripa MD [address] [place] [address] Historical LMR Provider 06/05/17 08/23/21 Jamie Winslow MD 22 [facility], [address] [place] [address] [email or web address] Historical LMR Provider 06/05/17 Goran High MD 236 [facility] 7 [place] [address] Historical LMR Provider 06/05/17 2 Lucila Lynne, RDCS [email or web address] Historical LMR Provider 06/05/17 08/23/21 Trey Guillory MD [address] [place] [phone] Historical LMR Provider 06/05/17 2 Anuradha Kaplna MD 46 [facility] [address] [place] [address] [email or web address] Historical LMR Provider 06/05/17 08/23/21 documented as of this encounter Additional Source Comments The information contained in this document represents components of the legal health record. It is not the complete legal health record.[facility]
--- OUTSIDE RECORDS SUMMARY | 2025-04-25 14:07 | XMS_ITS | Encounter Summary ---
Author Organization [facility] Address [address] [place] [address] [place] [address] Phone Care Team Providers Care Program Evaluator Name Role Phone Rajwinder Owen Unavailable [phone] Tito Mayer MD Unavailable [email or web address] Mary Jo Yates RESIDUE FURNACE OPERATOR Unavailable Rajwinder Amato RESIDUE FURNACE OPERATOR Unavailable Reinaldo Hernandez MD Unavailable Maryan Garcia RESIDUE FURNACE OPERATOR Unavailable [phone] Doris Rose NP Unavailable Dolores Mattson MD Unavailable Yan Bishop MD Unavailable Irina Bedolla RESIDUE FURNACE OPERATOR Unavailable Graciela Zamarripa MD Unavailable Jamie Winslow MD Unavailable Goran High MD Unavailable Lucila Lynne RDCS Unavailable [email or web address] Trey Guillory MD Unavailable [phone] Anuradha Kaplan MD Unavailable Jessica Soler RESIDUE FURNACE OPERATOR Primary Care Provider [phone] Melvin Kovacs MD Primary Care Provider + Encounter Details Date Type Department Care Team (Late st Contact Info) Description 05/30/2018 Procedure Pass [facility], Ct Scan - [address] [address] Social History Tobacco Use Types Packs/Day Years [...] on filedocumented in this encounter Care Teams Program Evaluator Relationship Specialty Start Date End Date Jessica Soler, RESIDUE FURNACE OPERATOR [address] [place] [address] PCP - General Family Medicine 01/21/18 08/11/20 Melvin Kovacs MD [address] [place] [address] PCP - General Family Medicine 08/12/20 Rajwinder Owen PA [address] [place] [address] Historical LMR Provider 06/05/17 Tito Mayer MD [email or web address] Historical LMR Provider 06/05/17 Mary Jo Yates NP [address] [place] [address] Historical LMR Provider 06/05/17 Rajwinder Montgomery RESIDUE FURNACE OPERATOR 30 [place] [address] Historical LMR Provider 06/05/17 2 Reinaldo Hernandez MD [address] [address] Historical LMR Provider 06/05/17 08/23/21 Maryan Garcia NP [address] [place] [address] Historical LMR Provider 06/05/17 08/23/21 Doris Rose NP [address] [place] [phone] Historical LMR Provider 06/05/17 2 Dolores Mattson MD [address] [address] Historical LMR Provider 06/05/17 Yan Bishop MD [address] [address] Historical LMR Provider 06/05/17 08/23/21 Irina Bedolla NP [address] [place] [address] Historical LMR Provider 06/05/17 2 Graciela Zamarripa MD [address] [place] [address] Historical LMR Provider 06/05/17 08/23/21 Jamie Winslow MD 22 [facility], [address] [place] [address] Historical LMR Provider 06/05/17 Goran High MD [address] [place] [address] 7 [place] [address] Historical LMR Provider 06/05/17 2 Lucila Lynne, [facility] Historical LMR Provider 06/05/17 08/23/21 Trey Guillory MD [address] [place] [phone] Historical LMR Provider 06/05/17 2 Anuradha Kaplan MD [address] [place] [address] [address] [place] [address] [email or web address] Historical LMR Provider 06/05/17 08/23/21 documented as of this encounter Additional Source Comments The information contained in this document represents components of the legal health record. It is not the complete legal health record.[facility]
--- OUTSIDE RECORDS SUMMARY | 2025-04-25 14:07 | XMS_ITS | Encounter Summary ---
Author Organization [facility] Address [address] [place] [address] [place] [address] Phone Care Team Providers Care Nurse Manager Name Role Phone Rajwinder Owen Primary Care Provider Rajwinder Owen Unavailable [phone] Tito Mayer MD Unavailable [email or web address] Mary Jo Yates CHECKROOM CHIEF Unavailable Rajwinder Amato CHECKROOM CHIEF Unavailable Reinaldo Hernandez MD Unavailable Maryan Garcia CHECKROOM CHIEF Unavailable [phone] Doris Rose NP Unavailable Dolores Mattson MD Unavailable Yan Bishop MD Unavailable Irina Bedolla CHECKROOM CHIEF Unavailable Graciela Zamarripa MD Unavailable Jamie Winslow MD Unavailable Goran High MD Unavailable Lucila Lynne RDCS Unavailable [email or web address] Trey Guillory MD Unavailable Anuradha Kaplan MD Unavailable Jessica Soler NP Primary Care Provider Melvin Kovacs MD Primary Care Provider + Reason for Referral * MRI/CAT Scan - Closed Specialty Diagnoses / Procedures Referred By Kilo randolph Referred To Contact Radiology Diagnoses RLQ abdominal pain Procedures CT Abdomen/Pelvis Jessica Soler NP Phone: tel: fax: Referral ID Status Reason Start Date Expiration Date Visits Re quested Visits Authorized [id number] Closed 01/07/2018 01/07/2019 1 1 Encounter Details Date Type Department Care Team (Late st Contact Info) Description 01/07/2018 Ancillary Orders Virtual Department [address] [place] [address] Jessica Soler NP [address] [place] [address] RLQ abdominal pain Social History Tobacco Use Types [...] as of this encounter Results * CT ABDOMEN/PELVIS WITH CONTRAST (01/07/2018 1:30 PM EDT) Anatomical Region Laterality Modality Abdomen, Pelvis Computed Tomogra phy 01/07/2018 1:12 PM EDT Impressions 01/07/2018 1:32 PM EDT Stable appearance relative to prior imaging. No findings of acute intra- abdominal process are noted. Findings suggesting prior appendectomy and cholecystectomy. Diverticulosis without diverticulitis or bowel inflammatory process confirmed. TOTAL CTDIvol: 8.50 mGy S/S: Right lower quadrant pain and tenderness, fevers, chills, diarrhea POS - [id number] Narrative 01/07/2018 1:32 PM EDT COMPARISON: CT abdomen pelvis March 15, 2011 TECHNIQUE: After the administration of oral and intravenous contrast, multidetector CT is obtained from dome of the liver through the inferior pubic rami. Multiplanar reformatted images generated. Automated exposure control utilized. FINDINGS: The lung bases are clear. No pleural fluid is seen. The patient has a right breast implant. The patient has had a prior cholecystectomy. The liver appears homogeneous. No bile duct dilatation is seen. The spleen is unremarkable. The pancreas appears normal. No adrenal masses are seen. The kidneys are unremarkable. Post surgical changes are evident in the region of the appendix suggesting prior appendectomy. Increased density in this region is likely related to surgical clips or calcification. These findings are unchanged relative to prior imaging. There is minor sigmoid diverticulosis and left colonic diverticulosis without diverticulitis. No bowel distention or displacement is seen. The uterus is positioned to the left of midline. No adnexal masses are noted. Urinary bladder is unremarkable. Mild to moderate degenerative changes in the thoracolumbar spine are noted. Procedure Note Chad Owens MD - 01/07/2018 COMPARISON: CT abdomen pelvis March 15, 2011 TECHNIQUE: After the administration of oral and intravenous contrast,multidetector CT is obtained from dome of the liver through the inferiorpubic rami. Multiplanar reformatted images generated. Automated exposurecontrol utilized. FINDINGS: The lung bases are clear. No pleural fluid is seen. The patient has aright breast implant. The patient has had a prior cholecystectomy. The liver appearshomogeneous. No bile duct dilatation is seen. The spleen is unremarkable. The pancreas appears normal. No adrenal masses are seen. The kidneys are unremarkable. Post surgical changes are evident in the region of the appendix suggestingprior appendectomy. Increased density in this region is likely related tosurgical clips or calcification. These findings are unchanged relative toprior imaging. There is minor sigmoid diverticulosis and left colonicdiverticulosis without diverticulitis. No bowel distention or displacementis seen. The uterus is positioned to the left of midline. No adnexal masses arenoted. Urinary bladder is unremarkable. Mild to moderate degenerative changes in the thoracolumbar spine arenoted. IMPRESSION: Stable appearance relative to prior imaging. No findings of acuteintra-abdominal process are noted. Findings suggesting prior appendectomyand cholecystectomy. Diverticulosis without diverticulitis or bowel inflammatory processconfirmed. TOTAL CTDIvol: 8.50 mGy S/S: Right lower quadrant pain and tenderness, fevers, chills, diarrhea POS - [id number] Jessica Soler NP IMG CT ABD/PELVIS Final Resu lt documented in this encounter Visit Diagnoses Diagnosis RLQ abdominal pain Abdominal pain, right lower quadrant RLQ abdominal pain Abdominal pain, right lower quadrant documented in this encounter Care Teams Nurse Manager Relationship Specialty Start Date End Date Rajwinder Owen PA [address] [place] [address] PCP - General Unknown Provider Specialty 03/11/15 01/20/18 Jessica Soler NP [address] [address] PCP - General Family Medicine 01/21/18 08/11/20 Melvin Kovacs MD [address] [place] [address] PCP - General Family Medicine 08/12/20 Rajwinder Owen PA [address] [place] [address] Historical LMR Provider 06/05/17 Tito Mayer MD [email or web address] Historical LMR Provider 06/05/17 Mary Jo Yates NP [address] [place] [address] Historical LMR Provider 06/05/17 2 Rajwinder Amato NP [address] [place] [address] Historical LMR Provider 06/05/17 2 Reinaldo Hernandez MD [address] [address] Historical LMR Provider 06/05/17 08/23/21 Maryan Garcia NP [address] [place] [address] [email or web address] Historical LMR Provider 06/05/17 08/23/21 Doris Rose NP [address] [place] [phone] Historical LMR Provider 06/05/17 2 Dolores Mattson MD [address] [place] [address] Historical LMR Provider 06/05/17 Yan Bishop MD [address] [address] Historical LMR Provider 06/05/17 08/23/21 Irina Bedolla NP [address] [place] [address] Historical LMR Provider 06/05/17 2 Graciela Zamarripa MD 234 [facility] 7 [place] [address] Historical LMR Provider 06/05/17 08/23/21 Jamie Winslow MD 22 [facility] 102 [place] [address] Historical LMR Provider 06/05/17 Goran High MD 236 [facility] 7 [place] [phone] Historical LMR Provider 06/05/17 2 Lucila Lynne, [facility] Historical LMR Provider 06/05/17 08/23/21 Trey Guillory MD [address] [place] [phone] Historical LMR Provider 06/05/17 2 Anuradha Kaplan MD [address] [address] [email or web address] Historical LMR Provider 06/05/17 08/23/21 documented as of this encounter Additional Source Comments The information contained in this document represents components of the legal health record. It is not the complete legal health record.[facility]
--- OUTSIDE RECORDS SUMMARY | 2025-04-25 14:07 | XMS_ITS | Encounter Summary ---
Author Organization [facility] Address [address] [place] [address] [place] [address] Phone Care Team Providers Care Desktop Support Associate Name Role Phone Rajwinder Owen Primary Care Provider [phone] Rajwinder Owen Unavailable Tito Mayer MD Unavailable [email or web address] Mary Jo Yates LOAN INSPECTOR Unavailable Rajwinder Amato LOAN INSPECTOR Unavailable Reinaldo Hernandez MD Unavailable Maryan Garcia LOAN INSPECTOR Unavailable [phone] Doris Rose NP Unavailable Dolores Mattson MD Unavailable Yan Bishop MD Unavailable Irina Bedolla LOAN INSPECTOR Unavailable Graciela Zamarripa MD Unavailable Jamie Winslow MD Unavailable Goran High MD Unavailable Lucila Lynne RDCS Unavailable [email or web address] Trey Guillory MD Unavailable Anuradha Kaplan MD Unavailable Jessica Soler NP Primary Care Provider Melvin Kovacs MD Primary Care Provider + Encounter Details Date Type Department Care Team (Late st Contact Info) Description 08/10/2017 Ancillary Orders [address] DO [address] [place] [address] Orthopedics & Sports Medicine, [facility] [place] [address] [email or web address] Left shoulder pain, unspecified chronicity Social History Tobacco Use Types Packs/Day Years Used Date Smoking Tobacco: Former Smokeless Tobacco: Never Alcohol Use Standard Drinks/Week Comments No 0 (1 standard drink = 0.6 oz pur e alcohol) Comments Unknown Sex and Gender Information Value [...] Imaging Routine Left shoulder pain, unspecified chronicity 08/11/2017 8:49 AM EST Scheduled Orders Name Type Priority Associated Diagnoses Orde r Schedule FL Guidance Needle Placement Non-Spine Imaging Routine Left Shoulder Pain, Unspecified Chronicity Expected: 08/10/2017, Expires: 08/10/2018 documented as of this encounter Visit Diagnoses Diagnosis Left shoulder pain, unspecified chronicity documented in this encounter Care Teams Desktop Support Associate Relationship Specialty Start Date End Date Rajwinder Owen PA [address] [place] [address] [facility] 1 [place] [address] PCP - General Unknown Provider Specialty 03/11/15 01/20/18 Jessica Soler, ARLET [address] [address] [facility] [address] [place] [address] PCP - General Family Medicine 01/21/18 08/11/20 Melvin Kovacs MD [address] [place] [address] PCP - General Family Medicine 08/12/20 Rajwinder Owen PA [address] [place] [address] Historical LMR Provider 06/05/17 Tito Mayer MD [email or web address] Historical LMR Provider 06/05/17 Mary Jo Yates NP [address] [place] [address] Historical LMR Provider 06/05/17 2 Rajwinder Amato NP [address] [place] [address] Historical LMR Provider 06/05/17 2 Reinaldo Hernandez MD [address] [address] [email or web address] Historical LMR Provider 06/05/17 08/23/21 Maryan Garcia NP [address] [place] [address] [email or web address] Historical LMR Provider 06/05/17 08/23/21 Doris Rose NP [address] [place] [phone] Historical LMR Provider 06/05/17 2 Dolores Mattson MD [address] [place] [address], [address] [place] [address] Historical LMR Provider 06/05/17 Yan Bishop MD [address] [place] [address] Historical LMR Provider 06/05/17 08/23/21 Irina Bedolla, ARLET [address] [place] [address] Historical LMR Provider 06/05/17 2 Graciela Zamarripa MD [address] [place] [address] Historical LMR Provider 06/05/17 08/23/21 Jamie Winslow MD [address] [place] [address] Historical LMR Provider 06/05/17 Goran High MD [address] [place] [phone] Historical LMR Provider 06/05/17 2 Lucila Lynne, RDCS Historical LMR Provider 06/05/17 08/23/21 Trye Guillory MD [address] [place] [phone] Historical LMR Provider 06/05/17 2 Anuradha Kaplan MD [address] [place] [address] [email or web address] Historical LMR Provider 06/05/17 08/23/21 documented as of this encounter Additional Source Comments The information contained in this document represents components of the legal health record. It is not the complete legal health record.[facility]
--- OUTSIDE RECORDS SUMMARY | 2025-04-25 14:07 | XMS_ITS | Encounter Summary ---
Author Organization [facility] Address [address] [place] [address] [place] [address] Phone Care Team Providers Care Parks And Recreation Worker Name Role Phone Rajwinder Owen Unavailable Tito Mayer MD Unavailable [email or web address] Mary Jo Yates METER AND SERVICE LINE INSPECTOR Unavailable Rajwinder Amato METER AND SERVICE LINE INSPECTOR Unavailable Reinaldo Hernandez MD Unavailable Maryan Garcia METER AND SERVICE LINE INSPECTOR Unavailable [phone] Doris Rose NP Unavailable Dolores Mattson MD Unavailable Yan Bishop MD Unavailable Irina Bedolla METER AND SERVICE LINE INSPECTOR Unavailable Graciela Zamarripa MD Unavailable Jamie Winslow MD Unavailable Goran High MD Unavailable Lucila Lynne RDCS Unavailable [email or web address] Trey Guillory MD Unavailable Anuradha Kaplan MD Unavailable Jessica Soler METER AND SERVICE LINE INSPECTOR Primary Care Provider Melvin Kovacs MD Primary Care Provider + Encounter Details Date Type Department Care Team (Late st Contact Info) Description 05/09/2018 Procedure Pass [facility],Outside Imaging [address] [place] [address] Social History Tobacco Use Types Packs/Day Years [...] on filedocumented in this encounter Care Teams Parks And Recreation Worker Relationship Specialty Start Date End Date Jessica Soler NP [address] [place] [address] PCP - General Family Medicine 01/21/18 08/11/20 Melvin Kovacs MD [address] [place] [address] PCP - General Family Medicine 08/12/20 Rajwinder Owen PA [address] [place] [address] Historical LMR Provider 06/05/17 Tito Mayer MD [email or web address] Historical LMR Provider 06/05/17 Mary Jo Yates NP [address] [place] [address] Historical LMR Provider 06/05/17 2 Rajwinder Amato METER AND SERVICE LINE INSPECTOR 30 [place] [address] Historical LMR Provider 06/05/17 2 Reinaldo Hernandez MD [address] [address] Historical LMR Provider 06/05/17 08/23/21 Maryan Garcia NP [address] [place] [address] Historical LMR Provider 06/05/17 08/23/21 Doris Rose NP [address] [place] [phone] Historical LMR Provider 06/05/17 2 Dolores Mattson MD [address] [place] [address] Historical LMR Provider 06/05/17 Yan Bishop MD [address] [address] Historical LMR Provider 06/05/17 08/23/21 Irina Bedolla NP [address] [place] [address] Historical LMR Provider 06/05/17 2 Graciela Zamarripa MD [address] [place] [address] Historical LMR Provider 06/05/17 08/23/21 Jamie Winslow MD 22 [facility], [address] [place] [address] Historical LMR Provider 06/05/17 Goran High MD [address] [place] [address] 7 [place] [address] Historical LMR Provider 06/05/17 2 Lucila Lynne, [facility] [email or web address] Historical LMR Provider 06/05/17 08/23/21 Trey Guillory MD [address] [place] [phone] Historical LMR Provider 06/05/17 2 Anuradha Kaplan MD 46 [facility] [address] [place] [address] [email or web address] Historical LMR Provider 06/05/17 08/23/21 documented as of this encounter Additional Source Comments The information contained in this document represents components of the legal health record. It is not the complete legal health record.[facility]
--- OUTSIDE RECORDS SUMMARY | 2025-04-25 14:07 | XMS_ITS | Encounter Summary ---
Author Organization [facility] Address [address] [place] [address] [place] [address] Phone Care Team Providers Care Cabin Worker Name Role Phone Rajwinder Owen Unavailable Tito Mayer MD Unavailable [email or web address] Mary Jo Yates PNEUMATIC JACKETER Unavailable Rajwinder Amato PNEUMATIC JACKETER Unavailable Reinaldo Hernandez MD Unavailable Maryan Garcia PNEUMATIC JACKETER Unavailable Doris Rose NP Unavailable Dolores Mattson MD Unavailable Yan Bishop MD Unavailable Irina Bedolla PNEUMATIC JACKETER Unavailable Graciela Zamarripa MD Unavailable Jamie Winslow MD Unavailable Goran High MD Unavailable Lucila Lynne RDCS Unavailable [email or web address] Trey Guillory MD Unavailable Anuradha Kaplan MD Unavailable Jessica Soler PNEUMATIC JACKETER Primary Care Provider [phone] Melvin Kovacs MD Primary Care Provider + Reason for Referral * MRI/CAT Scan - Closed Specialty Diagnoses / Procedures Referred By Kilo randolph Referred To Contact Procedures CT Abdomen/Pelvis Outside (No Interpretation) System, Provider Not In, PhD Damien Kauffman [address] [place], [place] [address] Referral ID Status Reason Start Date Expiration Date Visits Re quested Visits Authorized [id number] Closed 05/09/2018 05/09/2019 1 1 Encounter Details Date Type Department Care Team (Late st Contact Info) Description 05/09/2018 Ancillary Orders [facility],Outside Imaging 30 [place] [address] System, Provider Not In, PhD Damien Kauffman [address] [place] [address] Social History Tobacco Use Types Packs/Day Years [...] as of this encounter Results * CT Abdomen/Pelvis Outside (No Interpretation) (01/09/2018 12:15 AM EDT) Narrative SYSTEMGENERATED, DOCUMENTATION - 05/09/2018 8:53 AM EDT This study is for PACS storage only and not for interpretation. us Provider Not In System PhD IMG OUTSIDE IMAGING W /OUT INTERPRETATION Final Result documented in this encounter Visit Diagnoses Not on filedocumented in this encounter Care Teams Cabin Worker Relationship Specialty Start Date End Date Jessica Soler NP [address] [address] PCP - General Family Medicine 01/21/18 08/11/20 Melvin Kovacs MD [address] [place] [address] PCP - General Family Medicine 08/12/20 Rajwinder Owen PA [address] [place] [address] Historical LMR Provider 06/05/17 Tito Mayer MD [email or web address] Historical LMR Provider 06/05/17 Mary Jo Yates NP [address] [place] [address] Historical LMR Provider 06/05/17 2 Rajwinder Amato NP [address] [place] [address] Historical LMR Provider 06/05/17 2 Reinaldo Hernandez MD [address] [address] Historical LMR Provider 06/05/17 08/23/21 Maryan Garcia NP [address] [place] [address] Historical LMR Provider 06/05/17 08/23/21 Doris Rose NP [address] [place] [phone] Historical LMR Provider 06/05/17 2 Dolores Mattson MD [address] [place] [address], [address] [place] [address] Historical LMR Provider 06/05/17 Yan Bishop MD 22 [facility], [address] [place] [address] Historical LMR Provider 06/05/17 08/23/21 Irina Bedolla, ARLET [address] [place] [address] Historical LMR Provider 06/05/17 2 Graciela Zamarripa MD [address] [place] [address] 7 [place] [address] Historical LMR Provider 06/05/17 08/23/21 Jamie Winslow MD 22 [facility], [address] [address] Historical LMR Provider 06/05/17 Goran High MD [address] [place] [phone] Historical LMR Provider 06/05/17 2 Lucila Lynne, RDCS Historical LMR Provider 06/05/17 08/23/21 Trey Guillory MD [address] [place] [phone] Historical LMR Provider 06/05/17 2 Anuradha Kaplan MD [address] [place] [address] [email or web address] Historical LMR Provider 06/05/17 08/23/21 documented as of this encounter Additional Source Comments The information contained in this document represents components of the legal health record. It is not the complete legal health record.[facility]
--- OUTSIDE RECORDS SUMMARY | 2025-04-25 14:07 | XMS_ITS | Encounter Summary ---
Author Organization [facility] Address [address] [place] [address] [place] [address] Phone Care Team Providers Care Cable Dispatcher Name Role Phone Rajwinder Owen Primary Care Provider Rajwinder Owen Unavailable Tito Mayer MD Unavailable [email or web address] Mary Jo Yates COAL EQUIPMENT OPERATOR Unavailable [phone] Rajwinder Amato COAL EQUIPMENT OPERATOR Unavailable Reinaldo Hernandez MD Unavailable Maryan Garcia COAL EQUIPMENT OPERATOR Unavailable [phone] Doris Rose NP Unavailable Dolores Mattson MD Unavailable Yan Bishop MD Unavailable Irina Bedolla COAL EQUIPMENT OPERATOR Unavailable [phone] Graciela Zamarripa MD Unavailable [phone] Jamie Winslow MD Unavailable Goran High MD Unavailable Lucila Lynne RDCS Unavailable [email or web address] Trey Guillory MD Unavailable Anuradha Kaplan MD Unavailable Jessica Soler NP Primary Care Provider Melvin Kovacs MD Primary Care Provider + Encounter Details Date Type Department Care Team (Latest Contact Info) Description 01/04/2018 Transcribe Orders [facility] Laboratory 30 [place] [address] Sharon Macdonald PA-C [address], [address] [place] [address] [email or web address] Routine medical exam (Primary Dx) Social History Tobacco Use Types [...] documented as of this encounter Results * Ova and parasites, stool (01/04/2018 12:10 PM EDT) Pathologist [facility] Specimen Source/ Description STOOL STOOL STOOL [facility] Special Requests None [facility] DIRECT EXAM No parasites found by Trichrome Stain [facility] DIRECT EXAM NO PARASITES FOUND BY DIRECT OR CONCENTRATION METHODS [facility] Report Status 01/11/2018 FINAL [facility] Stool (Stool) 01/04/2018 12: 10 PM EDT 01/04/2018 2:08 PM EDT us Sharon Macdonald PA-C MICROBIOLOGY - GENERAL ORDERABL ES Final Result [facility] [address] [place] [address] * Giardia antigen screen (01/04/2018 12:05 PM EDT) [facility] GIARDIA ANTIGEN Negative Negative [facility] DPT OF LAB MED AND PAT+ Stool (Stool) 01/04/2018 12: 05 PM EDT 01/04/2018 12:21 PM EDT us Sharon Macdonald PA-C MICROBIOLOGY - GENERAL ORDERABL ES Final Result Performing Organization Address [facility] Co de Phone Number [facility] DPT OF LAB MED AND PAT+ [address] [place] [address] * H. pylori antigen, stool (01/04/2018 12:05 PM EDT) [facility] Negative Negative [facility] DPT OF LAB MED AND PAT+ Stool (Stool) 01/04/2018 12: 05 PM EDT 01/04/2018 12:21 PM EDT us Sharon Macdonald PA-C BODY FLUIDS AND STOOLS ORDERABL ES Final Result Performing Organization Address [facility] Co de Phone Number [facility] DPT OF LAB MED AND PAT+ [address] [place] [address] * Fecal occult blood, multiple (01/04/2018 12:05 PM EDT) FECAL OCC BLD 1 DATE 52,018 [facility] Occult bld, stool, #1 Negative Negative [facility] FECAL OCC BLD 2 DATE 52,118 [facility] OCCULT BLD, STOOL, #2 Negative Negative [facility] FECAL OCC BLD 3 DATE 52,218 [facility] FECAL OCC BLD 3 RSLT Negative Negative [facility] Stool (Stool) 01/04/2018 12: 05 PM EDT 01/04/2018 12:22 PM EDT us Sharon Macdonald PA-C BODY FLUIDS AND STOOLS ORDERABL ES Final Result Performing Organization Address City/[facility]/ZIP Co de Phone Number [facility] [address] [place] [address] * Fecal leukocyte examination (01/03/2018 12:05 PM EDT) Specimen Source/ Description STOOL STOOL STOOL [facility] Special Requests None [facility] GRAM STAIN NO WBC'S [facility] Report Status 01/05/2018 FINAL [facility] Stool (Stool) 01/03/2018 12: 05 PM EDT 01/04/2018 12:15 PM EDT Sharon Macdonald PA-C MICROBIOLOGY - GENERAL ORDERABL ES Final Result Performing Organization Address [facility]/ZIP Co de Phone Number [address] [address] * (ABNORMAL) Stool culture (01/03/2018 12:05 PM EDT) Specimen Source/ Description STOOL STOOL STOOL [facility] Special Requests None [facility] Culture/Test NO SALMONELLA, SHIGELLA OR CAMPYLOBACTER ISOLATED(A) [facility] Report Status 01/07/2018 FINAL [facility] Stool (Stool) 01/03/2018 12: 05 PM EDT 01/04/2018 12:15 PM EDT Sharon Macdonald PA-C MICROBIOLOGY - GENERAL ORDERABL ES Final Result Performing Organization Address [facility] Co de Phone Number [address] [address] * Ova and parasites, stool (01/03/2018 12:05 PM EDT) Specimen Source/ Description STOOL STOOL [facility] Special Requests None [facility] DIRECT EXAM No parasites found by Trichrome Stain [facility] DIRECT EXAM NO PARASITES FOUND BY DIRECT OR CONCENTRATION METHODS [facility] Report Status 01/11/2018 FINAL [facility] Stool (Stool) 01/03/2018 12: 05 PM EDT 01/04/2018 12:15 PM EDT us Sharon Macdonald PA-C MICROBIOLOGY - GENERAL ORDERABL ES Final Result Performing Organization Address City/[facility]/ZIP Co de Phone Number [address] [address] * Ova and parasites, stool (01/02/2018 12:10 PM EDT) Specimen Source/ Description STOOL STOOL STOOL [facility] Special Requests None [facility] DIRECT EXAM No parasites found by Trichrome Stain [facility] DIRECT EXAM NO PARASITES FOUND BY DIRECT OR CONCENTRATION METHODS [facility] Report Status 01/11/2018 FINAL [facility] Stool (Stool) 01/02/2018 12: 10 PM EDT 01/04/2018 12:17 PM EDT us Sharon Macdonald PA-C MICROBIOLOGY - GENERAL ORDERABL ES Final Result [facility] [address] [place] [address] documented in this encounter Visit Diagnoses Diagnosis Routine medical exam- Primary Routine general medical examination at a health care facility documented in this encounter Care Teams Cable Dispatcher Relationship Specialty Start Date End Date Rajwinder Owen PA [address] [place] [address] PCP - General Unknown Provider Specialty 03/11/15 01/20/18 Jessica Soler NP [address] [place] [address] PCP - General Family Medicine 01/21/18 08/11/20 Melvin Kovacs MD [address] [place] [address] PCP - General Family Medicine 08/12/20 Rajwinder Owen PA Val[address] SOR[address] [place] [address] Historical LMR Provider 06/05/17 Tito Mayer MD [email or web address] Historical LMR Provider 06/05/17 Mary Jo Yates NP [address] [place] [address] 340 [place] [address] Historical LMR Provider 06/05/17 2 Rajwinder Amato COAL EQUIPMENT OPERATOR 30 [place] [address] Historical LMR Provider 06/05/17 2 Reinaldo Hernandez MD [address] [address] Historical LMR Provider 06/05/17 08/23/21 Maryan Garcia COAL EQUIPMENT OPERATOR [address] [place] [address] [email or web address] Historical LMR Provider 06/05/17 08/23/21 Doris Rose COAL EQUIPMENT OPERATOR [facility]5 [place] [address] Historical LMR Provider 06/05/17 2 Dolores Mattson MD [address] [place] [address] Historical LMR Provider 06/05/17 Yan Bishop MD [address] [address] Historical LMR Provider 06/05/17 08/23/21 Irina Bedolla NP [address] [place] [address] Historical LMR Provider 06/05/17 2 Graciela Zamarripa MD 234 [facility] 7 [place] [address] Historical LMR Provider 06/05/17 08/23/21 Jamie Winslow MD 22 [facility] 102 [place] [address] Historical LMR Provider 06/05/17 Goran High MD [address] [place] [phone] Historical LMR Provider 06/05/17 2 Lucila Lynne, [facility] Historical LMR Provider 06/05/17 08/23/21 Trey Guillory MD [address] [place] [phone] Historical LMR Provider 06/05/17 2 Anuradha Kaplan MD [address] [place] [address] [email or web address] Historical LMR Provider 06/05/17 08/23/21 documented as of this encounter Additional Source Comments The information contained in this document represents components of the legal health record. It is not the complete legal health record.[facility]
--- OUTSIDE RECORDS SUMMARY | 2025-04-25 14:07 | XMS_ITS | Encounter Summary ---
Author Organization [facility] Address [address] [place] [address] [place] [address] Phone Care Team Providers Care Ornamental Metal Worker Helper Name Role Phone Rajwinder Owen Primary Care Provider Rajwinder Owen Unavailable [phone] Tito Mayer MD Unavailable [email or web address] [email or web address] Mary Jo Yates CLAIMS ADJUDICATOR Unavailable Rajwinder Amato CLAIMS ADJUDICATOR Unavailable Reinaldo Hernandez MD Unavailable Maryan Garcia CLAIMS ADJUDICATOR Unavailable [phone] Doris Rose NP Unavailable Dolores Mattson MD Unavailable Yan Bishop MD Unavailable [phone] Irina Bedolla CLAIMS ADJUDICATOR Unavailable Graciela Zamarripa MD Unavailable Jamie Winslow MD Unavailable Goran High MD Unavailable Lucila Lynne RDCS Unavailable [email or web address] Trey Guillory MD Unavailable Anuradha Kaplan MD Unavailable Jessica Soler NP Primary Care Provider Melvin Kovacs MD Primary Care Provider + Encounter Details Date Type Department Care Team (Late st Contact Info) Description 08/10/2017 Ancillary [facility] [address] [place] [address] DO [address] [place] [address] Orthopedics & Sports Medicine, [facility] [place] [address] [email or web address] Social History Tobacco Use Types Packs/Day Years [...] on filedocumented in this encounter Care Teams Ornamental Metal Worker Helper Relationship Specialty Start Date End Date Rajwinder Owen PA [address] [place] [address] Dr SOR[address]O [address] [place] [address] PCP - General Unknown Provider Specialty 03/11/15 01/20/18 Jessica Soler, ARLET [address] [place] [address] PCP - General Family Medicine 01/21/18 08/11/20 Melvin Kovacs MD [address] [place] [address] PCP - General Family Medicine 08/12/20 Rajwinder Owen PA [address] [place] [address] Dr SORIANO 1 [place] [address] Historical LMR Provider 06/05/17 Tito Mayer MD [email or web address] Historical LMR Provider 06/05/17 Mary Jo Yates NP [address] [place] [address] Historical LMR Provider 06/05/17 2 Rajwinder Amato NP [address] [place] [address] Historical LMR Provider 06/05/17 2 Reinaldo Hernandez MD [address] [place] [address] [email or web address] Historical LMR Provider 06/05/17 08/23/21 Maryan Garcia NP [address] [place] [address] [email or web address] Historical LMR Provider 06/05/17 08/23/21 Doris Rose CLAIMS ADJUDICATOR [address] [place] [phone] Historical LMR Provider 06/05/17 2 Dolores Mattson MD [address] [address] Historical LMR Provider 06/05/17 Yan Bishop MD [address] [address] Historical LMR Provider 06/05/17 08/23/21 Irina Bedolla NP [address] [place] [address] Historical LMR Provider 06/05/17 2 Graciela Zamarripa MD [address] [place] [address] Historical LMR Provider 06/05/17 08/23/21 Jamie Winslow MD [address] [place] [address] Historical LMR Provider 06/05/17 Goran High MD [address] [place] [phone] Historical LMR Provider 06/05/17 2 Lucila Lynne, [facility] Historical LMR Provider 06/05/17 08/23/21 Trey Guillory MD [address] [place] [phone] Historical LMR Provider 06/05/17 2 Anuradha Kaplan MD [address] [place] [address] [email or web address] Historical LMR Provider 06/05/17 08/23/21 documented as of this encounter Additional Source Comments The information contained in this document represents components of the legal health record. It is not the complete legal health record.[facility]
== END 2025-04-25 12:44 | disposition home or self-care (01) ==
LOC: HO.RHES 11:03
PROVIDERS: PCP Family Medicine; Visit Provider Student in an Organized Health Care Education/Training Program
DX: D86.9 Sarcoidosis, unspecified (principal); M65.321 Trigger finger, right index finger
CPT/HCPCS: 20550; 99213

== ENCOUNTER → 2025-04-25 11:03 | Outpatient (BNVA) | payer OTHER, SELFPAY | PROVIDERS: PCP Family Medicine; Visit Provider Student in an Organized Health Care Education/Training Program | DX: D86.9 Sarcoidosis, unspecified (principal); M65.941 Unspecified synovitis and tenosynovitis, right hand; M65.321 Trigger finger, right index finger | CPT/HCPCS: 20550; 99212; J3301 ==